=== PATIENT | male | born 1940 | race Caucasian/White ===

== ENCOUNTER → 2020-07-31 13:41 | Outpatient (BNVA) | payer MEDICARE, BC, SELFPAY | PROVIDERS: PCP Family Medicine; Referring Provider Family Medicine; Visit Provider Psychiatry & Neurology Neurology | DX: R26.89 Other abnormalities of gait and mobility (principal); I49.9 Cardiac arrhythmia, unspecified; M48.061 Spinal stenosis, lumbar region without neurogenic claudication; I10 Essential (primary) hypertension | CPT/HCPCS: 99205; G2212 ==

== ENCOUNTER 2020-12-31 02:43 | Outpatient (CLI) | payer MEDICARE, BC, SELFPAY ==
[2020-12-31 14:27] LABS: Source Nasal/Nares
[2020-12-31 19:29] LABS: COVID-19 PCR Negative (Negative)
== END 2020-12-31 02:44 | disposition home or self-care (01) ==
LOC: LBO 02:43
PROVIDERS: PCP Family Medicine; Visit Provider Ophthalmology
DX: Z20.822 Contact with and (suspected) exposure to COVID-19 (principal); Z01.818 Encounter for other preprocedural examination
CPT/HCPCS: 87635

== ENCOUNTER 2021-01-02 10:25 | Day surgery (SDC) | payer MEDICARE, BC, SELFPAY ==
--- NOTE | 2021-01-02 07:47 | W.ANESPRE ---
General Info Date of Service Date Performed: 01/02/21 Height: 5 ft 10 in Weight: 122.47 kg Body Mass Index (BMI): 38.7 Surgical Procedure: Operation Date: 01/02/21 13:40 Proposed Procedures Side Surgeon p Cataract Extraction with IOL Implant Right Tre Montez MD Meds Allergies and Home Medications Allergies Allergy/AdvReac Type Severity Reaction Status Date / Time hydromorphone HCl Allergy Intermediate Other (See Verified 01/02/21 11:09 [From Dilaudid] Comment) morphine Allergy Intermediate Itching Verified 01/02/21 11:09 vancomycin Allergy Intermediate Other (See Verified 01/02/21 11:09 Comment) acetaminophen [From Vicodin] Allergy Unknown Other (See Verified 01/02/21 11:09 Comment) hydrocodone bitartrate Allergy Unknown Verified 01/02/21 11:09 [From Vicodin] gabapentin AdvReac Intermediate Makes pt. Verified 01/02/21 11:09 loopy Home Medication Medication Instructions Recorded amitriptyline 20 mg PO HS tab-cap NS 12/21/16 nitroglycerin [Nitrostat] 0.4 mg SUBLINGUAL DIRECTED NS 12/21/16 Sinemet 25 mg-100 mg tablet 1 tab PO HS tab NS 07/31/20 Zocor 40 mg tablet 40 mg PO .QOD tab NS 07/31/20 acebutolol 400 mg capsule 400 mg PO BID 07/31/20 acetaminophen 650 mg 1,300 mg PO Q12H tab 07/31/20 tablet,extended release acyclovir 200 mg capsule 200 mg PO .5X QD PRN cap 07/31/20 amlodipine 5 mg tablet 5 mg PO HS 07/31/20 cholecalciferol (vitamin D3) 25 25 mcg PO DAILY 07/31/20 mcg (1,000 unit) capsule desipramine 10 mg tablet 10 mg PO QHS 07/31/20 furosemide 40 mg tablet 40 mg PO DAILY 07/31/20 mecobalamin (vitamin B12) 1,000 2,000 mcg PO DAILY tab 07/31/20 mcg chewable tablet omeprazole 40 mg capsule,delayed 40 mg PO BID 07/31/20 release potassium chloride 20 mEq 20 meq PO DAILY 07/31/20 tablet,extended release prazosin 1 mg capsule 1 mg PO TID cap 07/31/20 triamcinolone acetonide 0.1 % 1 applic TOPICAL BID PRN 07/31/20 topical cream walker #1 ea 07/31/20 apixaban [Eliquis] 5 mg PO BID 12/31/20 finasteride 5 mg PO HS 12/31/20 Current Visit Medications: Current Medications Generic Name Dose Route Start Last Admin Trade Name Freq PRN Reason Stop Dose Admin Acetaminophen 1,000 mg 01/02/21 06:00 Acetaminophen 500 Mg Tab PO Q4H PRN PRN Miscellaneous Medication 0 ml 01/02/21 06:00 Prednisolone 1%, Moxifloxacin 0.5%, Nepafenac 0.1% 5ml Btl OD DIRECTED [facility] Miscellaneous Medication 0 ml 01/02/21 06:00 Tropicam./Phenyleph. (1/2.5%) 5 Ml Btl OD DIRECTED [facility] Tetracaine HCl 0 ml 01/02/21 06:00 Tetracaine 0.5% 4 Ml Btl OD DIRECTED [facility] PFSH Active Problems Active Problems: Problem Status Onset Code Cortical cataract of right eye H26.9 Nuclear sclerotic cataract of right eye H25.11 Imbalance R26.89 Lumbar stenosis M48.061 Irregular heart beat I49.9 Medical History Medical History Achalasia Actinic keratosis Adenomatous colon polyp Alcohol abuse, in remission Aortic stenosis Mild per [facility] [place] records from 02/13/20 ASCVD (arteriosclerotic cardiovascular disease) BPH (benign prostatic hyperplasia) CAD (coronary artery disease) Pt. f/u with Dr. Roger @ [facility] [place] [facility] and is aware he is having cataract Depression GERD (gastroesophageal reflux disease) History of excessive sweating History of neck pain HTN (hypertension) Hyperlipidemia Insomnia Knee pain, left Leg edema Lumbar spinal stenosis Obesity Osteoarthritis Pain in left shoulder Restless leg syndrome Seborrheic keratosis Stasis dermatitis Syncope Surgical History Surgical History Colonoscopy - MAC (12/29/16) EGD - MAC (12/29/16) H/O laminectomy History of cervical discectomy S/P carpal tunnel release S/P tendon repair Tobacco Smoking/Tobacco Use Status: Former Tobacco Use Alcohol Alcohol Intake: current Alcohol intake frequency: a few times a month Alcohol type: beer Substance Use Substance use: Never Vital Signs and Lab Results Lab Results Blood Type / Crossmatch: No Data to Display Complete Blood Count: No Data to Display Complete Metabolic Panel: No Data to Display Liver Function Panel: No Data to Display Coagulation Panel: No Data to Display Cardiac Panel: No Data to Display Arterial Blood Gas: No Data to Display Venous Blood Gas: No Data to Display Pancreas Panel: No Data to Display Thyroid Panel: No Data to Display Infectious Disease: Coronavirus (COVID-19)(PCR) Negative (Negative) 12/31/20 09:40 12/31/20 Coronavirus 2019 Source Nasal/Nares 12/31/20 09:40 12/31/20 Blood Cultures: No Data to Display Toxicology Panel: No Data to Display Anesthesia Assessment and Plan Anesthesia History Personal History: No History of Anesthesia Complications Family History: No Family History of Anesthesia Complications Exercise Tolerance Exercise Tolerance: Metabolic Equivalents>4 Pertinent Negatives Pertinent Negatives: No Symptoms of GERD, No Major Pulmonary Symptoms or Complaints and No History of CVA/TIA Cardiac & Pulmonary Exam Cardiac Exam: Normal S1/S2 Heart Sounds Pulmonary Exam: Clear Bilateral Breath Sounds Cardiac and Pulmonary Comment:: Followed up with Dr. Garcia Implantable Cardiac Device Does patient have a Pacemaker or an ICD?: No Airway Exam Known Difficult Airway: No Mallampati Class: 3 Mouth Opening: Narrow (< 3cm) Thyromental Distance: Greater than 3 cm Neck Range of Motion: Limited ROM and History of Cervical Fusion Neck Circumference: Thick Teeth Condition: Normal Dentition and Generalized Poor Dentition ASA Classification ASA Score: ASA 3 Emergency Case?: No NPO Status NPO Status: NPO Clears >2 hours, Solids >8 hours Anesthesia Plan Resuscitation Status: Full Code Anesthesia Technique: MAC Anesthesia Airway Planned: Natural Airway Monitors Used: Standard Monitors Preoperative Comments:: Patient stated did not want to proceed with surgery without some form of sedation. I informed the patient of specific risks in the presence of his daughter. Discussed with Dr. Montez. To proceed with MKO for patient.
[2021-01-02 11:27] VITALS: BP 172/77; PULSE 61; RESP 17; TEMP 36.1; O2SAT 97
[2021-01-02 11:36] VITALS: BMI 38.7
[2021-01-02] MEDS: Tropicam./Phenyleph. (1/2.5%) 5 ML BTL OD ×3 (11:38→11:49)
[2021-01-02] MEDS: Tetracaine 0.5% 4 ML BTL OD (12:06)
[2021-01-02] MEDS: Lidocaine 2% Jelly 6 ML SYR (12:07)
[2021-01-02] MEDS: Lidocaine 1% Pres-Free 5 ML VIAL (12:14)
[2021-01-02] MEDS: Balanced Salt Soln.-PLUS 500 ML BAG (12:16)
[2021-01-02] MEDS: Duovisc Viscoelastic System EACH 1 EACH (12:16)
[2021-01-02] MEDS: Povidone-Iodine Ophth 30 ML BTL (12:19)
[2021-01-02 12:40] VITALS: BP 152/80; PULSE 57; RESP 18; TEMP 36.4; O2SAT 97
--- NOTE | 2021-01-02 12:41 | W.PM.DSUDISC ---
Discharge Plan Disposition Patient Disposition: HOME Condition: Good Discharge Details Attending Provider: Tre Montez Primary Care Provider: Riccardo Duque Meds and New Rx's Prescriptions: No Action prazosin 1 mg capsule 1 mg PO TID RF: 0 (DME) christo Misc See Rx Instructions .ROUTE .MEDSUPPLY Qty: 1 RF: 0 triamcinolone acetonide 0.1 % cream 1 applic topical BID PRNRF: 0 potassium chloride 20 mEq tablet extended release 20 meq PO DAILY RF: 0 furosemide 40 mg tablet 40 mg PO DAILY RF: 0 amlodipine 5 mg tablet 5 mg PO HS RF: 0 desipramine 10 mg tablet 10 mg PO QHS RF: 0 acebutolol 400 mg capsule 400 mg PO BID RF: 0 acyclovir 200 mg capsule 200 mg PO .5X QD PRNRF: 0 acetaminophen 650 mg tablet extended release 1,300 mg PO Q12H RF: 0 B12 Active 1,000 mcg tablet,chewable 2,000 mcg PO DAILY RF: 0 cholecalciferol (vitamin D3) 25 mcg (1,000 unit) capsule 25 mcg PO DAILY RF: 0 omeprazole 40 mg capsule,delayed release(DR/EC) 40 mg PO BID RF: 0 amitriptyline 10 MG tablet 20 mg PO HS RF: 0 nitroglycerin [Nitrostat] 0.4 MG tablet, sublingual 0.4 mg Sublingual DIRECTED RF: 0 carbidopa-levodopa [Sinemet] 25-100 mg tablet 1 tab PO HS RF: 0 simvastatin [Zocor] 40 mg tablet 40 mg PO .QOD RF: 0 Eliquis 5 mg tablet 5 mg PO BID RF: 0 finasteride 5 mg tablet 5 mg PO HS RF: 0 Discharge Instructions Stand Alone Forms: Post-op Topical Cataract, Alia Ganey (DSU) Discharge Orders Discharge Orders: Discharge Order (Routine); Ordered 01/02/21 Ordered By: Tre Montez DS: Diagnosis Discharge Diagnosis (1) Cortical cataract of right eye: Status: Resolved (2) Nuclear sclerotic cataract of right eye: Status: Resolved
--- NOTE | 2021-01-02 12:42 | ROE_ITS ---
Date of service: 01/02/21 Time of Service: 12:42 Operative Note Operative Note DATE OF PROCEDURE: 09/08/20 POST-OP DIAGNOSIS: same PROCEDURE: Cataract extraction using phacoemulsification with intraocular lens implant, right eye SURGEON: Tre Montez ANESTHESIA TYPE: Local By Surgeon and MAC Refer to Anesthesia Record ESTIMATED BLOOD LOSS: 0 PATHOLOGY: none sent COMPLICATIONS: None Patient was transported to: same day Patient's condition: stable Implants: Jordan [employer] Jordan/MAK Tecnis [id number] Indications: Progressive visual loss due to cataract, right eye Procedure Description: CATARACT SURGERY OPERATIVE REPORT PREOPERATIVE DIAGNOSIS: 1. Nuclear/cortical cataract, right eye POSTOPERATIVE DIAGNOSIS: Same OPERATION: 1. Cataract extraction using phacoemulsification with posterior chamber intraocular lens implant, right eye. IOL: IOL Wet Milling Wheel Operator/Model: Jordan & Jordan / MAK Tecnis [id number] IOL Power: + 21.0 diopters IOL Serial Number: [id number] Optic Diameter: 6.0mm Haptic/Overall Diameter: 13.0mm PHACO INFO: [email or web address] Vision System with OZil and Active Fluidics Cumulative Dispersed Energy (CDE): 12.13 seconds SURGEON: Tre Montez MD, VENESSA ANESTHESIA: Monitored Anesthesia Care (MAC), with local sub-tenon's anesthetic infiltration COMPLICATIONS: None SPECIMENS: None INDICATIONS FOR PROCEDURE: The patient is an 80-year-old gentleman with history of diminished visual acuity in his right eye secondary to the development of nuclear/cortical cataract. He is significantly symptomatic that he desired cataract surgery in order to improve and maximize his vision. The option of cataract surgery was offered to the patient and he wished to proceed. PROCEDURE: The correct surgical eye was identified and marked as the right eye and the pupil was dilated in the preoperative area using mydriatics and cycloplegics. The dilated pupil size was 7.0 mm. Oral sedation was administered in the form of an Imprimis MKO Melt (midazolam 3mg/ketamine 25mg/ondansetron 2mg). The patient was brought to the operating room where cardiopulmonary monitoring was instituted and surgical time-out was performed, confirming the correct operative eye and IOL power. Topical anesthesia was administered and ophthalmic povidone-iodine 5% was instilled into the conjunctival fornices. Lidocaine gel was applied to the cornea and the dionne-ocular area was prepped with Betadine 10% solution and draped in the usual sterile fashion for intraocular surgery, including an aperture drape. A Tegaderm transparent film dressing was cut in half and used to cover the lashes and lid margins. Care was taken to sequester the lashes and lid margins under the Tegaderm dressing. A lid speculum was placed between the lids of the operative eye and the Karina-Noemi operating microscope was maneuvered into position. Rosalina scissors were then used to make a conjunctival buttonhole approximately 6mm posterior to the limbus in the inferonasal quadrant. Blunt dissection was carried out to expose bare sclera, and a blunt-tipped sub-tenon?s anesthesia cannula was introduced and passed posteriorly along the globe where non- preserved plain lidocaine was injected into posterior sub-Tenon?s space. A sideport knife was used to make a paracentesis port inferotemporally. Intraocular phenylephrine/lidocaine was injected into the anterior chamber. The anterior chamber was filled with viscoelastic. A 2.4mm keratome knife was used to create a half-thickness groove at the limbus and then to construct a three- plane near-clear corneal tunnel extending 2.0mm into clear cornea superiortemporally. A flap was raised on the anterior capsule and capsulorhexis forceps were used to complete a continuous curvilinear capsulorhexis of 5.0 mm. Balanced salt solution was then used to perform cortical cleaving hydrodissection and nuclear hydrodelineation until the lens could be freely rotated within the capsular bag. The lens nucleus was then disassembled and removed within the capsular bag and iris plane using phacoemulsification. Residual cortical material was removed using the I/A handpiece. The posterior capsule was carefully polished to remove as much residual lens epithelial cells as safely possible. The capsular bag was then inflated and the anterior chamber deepened with viscoelastic. The lens implant described above was inserted into the capsular bag using the MAK [place] Injector. A Kuglen hook was used to dial the IOL into position. Residual viscoelastic was then removed first from posterior to the IOL, then from the anterior chamber using the I/A handpiece. The lens implant was noted to center nicely within the capsular bag. The incisions were stromally hydrated, and the anterior chamber was reformed using BSS. Then 0.5cc of moxifloxacin 1.0mg/ml were injected into the capsular bag and anterior chamber. The incisio ns were checked with a Weck spear and found to be secure. Several drops of ophthalmic povidone-iodine 5% were then applied to the eye followed by two drops of Imprimis combination prednisolone/moxifloxacin/nepafenac solution. The drapes were removed and a clear plastic protective eye shield was placed over the eye. The patient was then returned to Same Day Surgery in stable condition.
[2021-01-02 13:16] VITALS: BP 138/56; PULSE 65; RESP 16; TEMP 36.1; O2SAT 97
--- NOTE | 2021-01-02 14:30 | W.ANESPOSTOP ---
Postoperative Evaluation Date, Time and Location Date Performed: 01/02/21 Time Performed: 14:30 Patient Location: Day Surgery Unit Vital Signs Most Recent Imported Vital Signs: Most Recent Vital Signs Temp Pulse Resp BP Pulse Ox 36.4 C L 57 L 18 152/80 H 97 01/02/21 12:40 01/02/21 12:40 01/02/21 12:40 01/02/21 12:40 01/02/21 12:40 Pain Score Most Recent Pain Score: Most Recent Pain Score Pain Level 0 01/02/21 12:40 Assessment Mental Status: Awake (Alert & Oriented to Patient Baseline) Airway and Respiratory Function: Patent airway with normal (patient baseline) respiratory exam Cardiovascular Function: Hemodynamically Stable Hydration Status: Adequately Hydrated Nausea & Vomiting: No Nausea or Vomiting Pain: Pt. Denies Any Pain Peripheral Nerve Block: Patient did not receive a nerve block
== END 2021-01-02 13:37 | disposition home or self-care (01) ==
PROVIDERS: PCP Family Medicine; Visit Provider Ophthalmology
PROC: (CPT 66984; principal; 2021-01-02 13:30)
DX: H25.11 Age-related nuclear cataract, right eye (principal); I10 Essential (primary) hypertension; I25.10 Atherosclerotic heart disease of native coronary artery without angina pectoris
CPT/HCPCS: 66984; V2632

== ENCOUNTER 2021-01-07 02:40 | Outpatient (CLI) | payer MEDICARE, BC, SELFPAY ==
[2021-01-07 10:55] LABS: Source Nasal/Nares
[2021-01-07 14:13] LABS: COVID-19 PCR Negative (Negative)
== END 2021-01-07 02:41 | disposition home or self-care (01) ==
LOC: LBO 02:40
PROVIDERS: PCP Family Medicine; Visit Provider Ophthalmology
DX: Z20.822 Contact with and (suspected) exposure to COVID-19 (principal); Z01.818 Encounter for other preprocedural examination
CPT/HCPCS: 87635

== ENCOUNTER 2021-01-09 08:10 | Day surgery (SDC) | payer MEDICARE, BC, SELFPAY ==
--- NOTE | 2021-01-08 13:25 | ANES.PREOP_ITS ---
General Info Date of Service Date Performed: 01/09/21 Height: 5 ft 10 in Weight: 125.7 kg Body Mass Index (BMI): 39.7 Surgical Procedure: Operation Date: 01/09/21 10:40 Proposed Procedures Side Surgeon p Cataract Extraction with IOL Implant Left Tre Montez MD Meds Allergies and Home Medications Allergies Allergy/AdvReac Type Severity Reaction Status Date / Time hydromorphone HCl Allergy Intermediate Other (See Verified 01/09/21 08:33 [From Dilaudid] Comment) morphine Allergy Intermediate Itching Verified 01/09/21 08:33 vancomycin Allergy Intermediate Other (See Verified 01/09/21 08:33 Comment) acetaminophen [From Vicodin] Allergy Unknown Other (See Verified 01/09/21 08:33 Comment) hydrocodone bitartrate Allergy Unknown Verified 01/09/21 08:33 [From Vicodin] gabapentin AdvReac Intermediate Makes pt. Verified 01/09/21 08:33 loopy Home Medication Medication Instructions Recorded amitriptyline 20 mg PO HS tab-cap NS 12/21/16 nitroglycerin [Nitrostat] 0.4 mg SUBLINGUAL DIRECTED NS 12/21/16 Sinemet 25 mg-100 mg tablet 1 tab PO HS tab NS 07/31/20 Zocor 40 mg tablet 40 mg PO .QOD tab NS 07/31/20 acebutolol 400 mg capsule 400 mg PO BID 07/31/20 acetaminophen 650 mg 1,300 mg PO Q12H tab 07/31/20 tablet,extended release amlodipine 5 mg tablet 5 mg PO HS 07/31/20 cholecalciferol (vitamin D3) 25 25 mcg PO DAILY 07/31/20 mcg (1,000 unit) capsule desipramine 10 mg tablet 10 mg PO QHS 07/31/20 furosemide 40 mg tablet 40 mg PO DAILY 07/31/20 mecobalamin (vitamin B12) 1,000 2,000 mcg PO DAILY tab 07/31/20 mcg chewable tablet omeprazole 40 mg capsule,delayed 40 mg PO BID 07/31/20 release potassium chloride 20 mEq 20 meq PO DAILY 07/31/20 tablet,extended release prazosin 1 mg capsule 1 mg PO TID cap 07/31/20 triamcinolone acetonide 0.1 % 1 applic TOPICAL BID PRN 07/31/20 topical cream walker #1 ea 07/31/20 apixaban [Eliquis] 5 mg PO BID 12/31/20 finasteride 5 mg PO HS 12/31/20 Current Visit Medications: Current Medications Generic Name Dose Route Start Last Admin Trade Name Freq PRN Reason Stop Dose Admin Acetaminophen 1,000 mg 01/09/21 06:00 Acetaminophen 500 Mg Tab PO Q4H PRN PRN Miscellaneous Medication 0 ml 01/09/21 06:00 Prednisolone 1%, Moxifloxacin 0.5%, Nepafenac 0.1% 5ml Btl OS DIRECTED JOSE LUIS Miscellaneous Medication 0 ml 01/09/21 06:00 Tropicam./Phenyleph. (1/2.5%) 5 Ml Btl OS DIRECTED JOSE LUIS Tetracaine HCl 0 ml 01/09/21 06:00 Tetracaine 0.5% 4 Ml Btl OS DIRECTED JOSE LUIS PFSH Active Problems Active Problems: Problem Status Onset Code Cortical cataract of left eye H26.9 Nuclear sclerotic cataract of left eye H25.12 Cortical cataract of right eye H26.9 Nuclear sclerotic cataract of right eye H25.11 Imbalance R26.89 Lumbar stenosis M48.061 Irregular heart beat I49.9 Medical History Active Problem List Cortical cataract of left eye (Acute) Nuclear sclerotic cataract of left eye (Acute) Imbalance (Acute) Lumbar stenosis (Acute) Irregular heart beat (Acute) Medical History Achalasia Actinic keratosis Adenomatous colon polyp Alcohol abuse, in remission Aortic stenosis Mild per [facility] [place] 02/13/20 ASCVD (arteriosclerotic cardiovascular disease) BPH (benign prostatic hyperplasia) CAD (coronary artery disease) Pt. f/u with Dr. Roger @ [facility] and is aware he is having cataract Depression GERD (gastroesophageal reflux disease) History of excessive sweating History of neck pain HTN (hypertension) Hyperlipidemia Insomnia Knee pain, left Leg edema Lumbar spinal stenosis Obesity Osteoarthritis Pain in left shoulder Restless leg syndrome Seborrheic keratosis Stasis dermatitis Syncope Surgical History Surgical History Colonoscopy - MAC (12/29/16) EGD - MAC (12/29/16) H/O laminectomy History of cervical discectomy S/P carpal tunnel release S/P tendon repair Tobacco Smoking/Tobacco Use Status: Former Tobacco Use Alcohol Alcohol Intake: current Alcohol intake frequency: a few times a month Alcohol type: beer Substance Use Substance use: Never Vital Signs and Lab Results Vital Signs Most Recent Vital Signs in EMR: Temp Pulse Resp BP Pulse Ox 36.2 C L 59 L 16 152/80 H 98 01/09/21 08:41 01/09/21 08:41 01/09/21 08:41 01/09/21 08:41 01/09/21 08:41 Lab Results Blood Type / Crossmatch: No Data to Display Complete Blood Count: No Data to Display Complete Metabolic Panel: No Data to Display Liver Function Panel: No Data to Display Coagulation Panel: No Data to Display Cardiac Panel: No Data to Display Arterial Blood Gas: No Data to Display Venous Blood Gas: No Data to Display Pancreas Panel: No Data to Display Thyroid Panel: No Data to Display Infectious Disease: Coronavirus (COVID-19)(PCR) Negative (Negative) 01/07/21 09:31 01/07/21 Coronavirus 2019 Source Nasal/Nares 01/07/21 09:31 01/07/21 Blood Cultures: No Data to Display Toxicology Panel: No Data to Display Imaging and Studies Imaging and Studies Echocardiogram Summary: 05/2018: mild LVH, normal LV fxn, mild , trivial MR and TR, no change from 2016. unable to view 2019 ECHO report. Anesthesia Assessment and Plan Anesthesia History Personal History: No History of Anesthesia Complications Family History: No Family History of Anesthesia Complications Exercise Tolerance Exercise Tolerance: Metabolic Equivalents>4 Cardiac & Pulmonary Exam Cardiac Exam: Normal S1/S2 Heart Sounds Pulmonary Exam: Clear Bilateral Breath Sounds Cardiac and Pulmonary Comment:: Followed up with Dr. Garcia Implantable Cardiac Device Does patient have a Pacemaker or an ICD?: No Airway Exam Known Difficult Airway: No Mallampati Class: 3 Mouth Opening: Narrow (< 3cm) Thyromental Distance: Greater than 3 cm Neck Range of Motion: Limited ROM and History of Cervical Fusion Neck Circumference: Thick Teeth Condition: Normal Dentition and Generalized Poor Dentition ASA Classification ASA Score: ASA 3 Emergency Case?: No NPO Status NPO Status: NPO Clears >2 hours, Solids >8 hours Anesthesia Plan Resuscitation Status: Full Code Anesthesia Technique: MAC Anesthesia Airway Planned: Natural Airway Monitors Used: Standard Monitors Preoperative Comments:: 80 yo male for cataract removal. Sig PMHx: mild , ASCVD, CAD, GERD, HTN, former smoker. Previous MKO, feels like it didn't do anything. 01/02/21 Patient stated did not want to proceed with surgery without some form of sedation. I informed the patient of specific risks in the presence of his daughter. Discussed with Dr. Montez. To proceed with MKO for patient.
[2021-01-09 08:27] VITALS: BMI 39.7
[2021-01-09 08:41] VITALS: BP 152/80; PULSE 59; RESP 16; TEMP 36.2; O2SAT 98
[2021-01-09] MEDS: Tropicam./Phenyleph. (1/2.5%) 5 ML BTL OS ×3 (08:52→09:06)
[2021-01-09] MEDS: Tetracaine 0.5% 4 ML BTL OS (09:33)
[2021-01-09] MEDS: Lidocaine 2% Jelly 6 ML SYR (09:34)
[2021-01-09] MEDS: Povidone-Iodine Ophth 30 ML BTL (09:34)
[2021-01-09] MEDS: Duovisc Viscoelastic System EACH 1 EACH (09:35)
[2021-01-09] MEDS: Balanced Salt Soln.-PLUS 500 ML BAG (09:36)
--- NOTE | 2021-01-09 09:55 | W.PM.DSUDISC ---
Discharge Plan Disposition Patient Disposition: HOME Condition: Good Discharge Details Attending Provider: Tre Montez Primary Care Provider: Riccardo Duque Meds and New Rx's Prescriptions: No Action prazosin 1 mg capsule 1 mg PO TID RF: 0 (DME) christo Misc See Rx Instructions .ROUTE .MEDSUPPLY Qty: 1 RF: 0 triamcinolone acetonide 0.1 % cream 1 applic topical BID PRNRF: 0 potassium chloride 20 mEq tablet extended release 20 meq PO DAILY RF: 0 furosemide 40 mg tablet 40 mg PO BID RF: 0 amlodipine 5 mg tablet 5 mg PO HS RF: 0 desipramine 10 mg tablet 10 mg PO QHS RF: 0 acebutolol 400 mg capsule 400 mg PO BID RF: 0 acetaminophen 650 mg tablet extended release 1,300 mg PO Q12H RF: 0 B12 Active 1,000 mcg tablet,chewable 2,000 mcg PO DAILY RF: 0 cholecalciferol (vitamin D3) 25 mcg (1,000 unit) capsule 25 mcg PO DAILY RF: 0 omeprazole 40 mg capsule,delayed release(DR/EC) 40 mg PO BID RF: 0 amitriptyline 10 MG tablet 20 mg PO HS RF: 0 nitroglycerin [Nitrostat] 0.4 MG tablet, sublingual 0.4 mg Sublingual DIRECTED RF: 0 carbidopa-levodopa [Sinemet] 25-100 mg tablet 1 tab PO HS RF: 0 simvastatin [Zocor] 40 mg tablet 40 mg PO .QOD RF: 0 Eliquis 5 mg tablet 5 mg PO BID RF: 0 finasteride 5 mg tablet 5 mg PO HS RF: 0 Discharge Instructions Stand Alone Forms: Post-op Topical Cataract, Alia Morocho (DSU) Discharge Orders Discharge Orders: Discharge Order (Routine); Ordered 01/09/21 Ordered By: Tre Montez DS: Diagnosis Discharge Diagnosis (1) Cortical cataract of left eye: Status: Resolved (2) Nuclear sclerotic cataract of left eye: Status: Resolved
--- NOTE | 2021-01-09 09:56 | ROE_ITS ---
Date of service: 01/09/21 Time of Service: 09:56 Operative Note Operative Note DATE OF PROCEDURE: 01/09/21 PRE-OP DIAGNOSIS: Nuclear/cortical cataract, left eye POST-OP DIAGNOSIS: same PROCEDURE: Cataract extraction using phacoemulsification with intraocular lens implant, left eye SURGEON: Tre Montez ANESTHESIA TYPE: Local By Surgeon and MAC Refer to Anesthesia Record PATHOLOGY: none sent COMPLICATIONS: None Patient was transported to: same day Patient's condition: stable Implants: Jordan [employer] Jordan / [employer] Tecnis [id number] Indications: Progressive decreased vision due to cataract, left eye Procedure Description: CATARACT SURGERY OPERATIVE REPORT PREOPERATIVE DIAGNOSIS: 1. Nuclear/cortical cataract, left eye POSTOPERATIVE DIAGNOSIS: Same OPERATION: 1. Cataract extraction using phacoemulsification with posterior chamber intraocular lens implant, left eye. IOL: IOL Janitorial Manager/Model: Jordan & Jordan / MAK Tecnis [id number] IOL Power: + 20.50 diopters IOL Serial Number: [id number] Optic Diameter: 6.0 mm Haptic/Overall Diameter: 13.0 mm PHACO INFO: Kvng[employer] The[employer]on Vision System with OZil and Active Fluidics Cumulative Dispersed Energy (CDE): 9.45 seconds SURGEON: Tre Montez MD, VENESSA ANESTHESIA: Monitored A [facility] ([facility]), with local sub-tenon's anesthetic infiltration COMPLICATIONS: None SPECIMENS: None INDICATIONS FOR PROCEDURE: The patient is an 80-year-old gentleman with history of diminished visual acuity in both eyes secondary to the development of bilateral cataract. He has already undergone cataract surgery in the right eye and is doing well postoperatively. He now presents for cataract surgery in the left eye. PROCEDURE: The correct surgical eye was identified and marked as the left eye and the pupil was dilated in the preoperative area using mydriatics and cycloplegics. The dilated pupil size was 7.5 mm. Oral sedation was administered in the form of an Imprimis MKO Melt (midazolam 3mg/ketamine 25mg/ondansetron 2mg). The patient was brought to the operating room where cardiopulmonary monitoring was instituted and surgical time-out was performed, confirming the correct operative eye and IOL power. Topical anesthesia was administered and ophthalmic povidone-iodine 5% was instilled into the conjunctival fornices. Lidocaine gel was applied to the cornea and the dionne-ocular area was prepped with Betadine 10% solution and draped in the usual sterile fashion for intraocular surgery, including an aperture drape. A Tegaderm transparent film dressing was cut in half and used to cover the lashes and lid margins. Care was taken to sequester the lashes and lid margins under the Tegaderm dressing. A lid speculum was placed between the lids of the operative eye and the Karina-Noemi operating microscope was maneuvered into position. Rosalina scissors were then used to make a conjunctival buttonhole approximately 6mm posterior to the limbus in the inferonasal quadrant. Blunt dissection was carried out to expose bare sclera, and a blunt-tipped sub-tenon?s anesthesia cannula was introduced and passed posteriorly along the globe where non- preserved plain lidocaine was injected into posterior sub-Tenon?s space. A s basico.comport knife was used to make a paracentesis port superiorly/superiortemporally. Intraocular phenylephrine/lidocaine was injected int the anterior chamber.. The anterior chamber was filled with viscoelastic. A 2.4mm keratome knife was used to create a half-thickness groove at the limbus and then to construct a three-plane near-clear corneal tunnel extending 2.0mm into clear cornea at the 3:00 position. A flap was raised on the anterior capsule and capsulorhexis forceps were used to complete a continuous curvilinear capsulorhexis of 5.5 mm. Balanced salt solution was then used to perform cortical cleaving hydrodissection and nuclear hydrodelineation until the lens could be freely rotated within the capsular bag. The lens nucleus was then disassembled and removed within the capsular bag and iris plane using phacoemulsification. Residual cortical material was removed using the 45-degree angled silicone I/A tip with 0.3mm port. The posterior capsule was carefully polished to remove as much residual lens epithelial cells as safely possible. The capsular bag was then inflated and the anterior chamber deepened with viscoelastic. The lens implant described above was inserted into the capsular bag using the MAK [place] Injector. A Kuglen hook was used to dial the IOL into position. Residual viscoelastic was then removed first from posterior to the IOL, then from the anterior chamber using the I/A handpiece. The lens implant was noted to center nicely within the capsular bag. The incisions were stromally hydrated, and the anterior chamber was reformed using BSS. Then 0.5cc of moxifloxacin 1.0mg/ml were injected into the capsular bag and anterior chamber. The incisions were checked with a Weck spear and found to be secure. Several drops of ophthalmic povidone-iodine 5% were then applied to the eye followed by two drops of Imprimis combination prednisolone/moxifloxacin/nepafenac solution. The drapes were removed and a clear plastic protective eye shield was placed over the eye. The patient was then returned to Same Day Surgery in stable condition.
[2021-01-09 10:02] VITALS: BP 131/66; PULSE 55; RESP 16; TEMP 36.1; O2SAT 95
--- NOTE | 2021-01-09 10:07 | W.ANESPOSTOP ---
Postoperative Evaluation Date, Time and Location Date Performed: 01/09/21 Time Performed: 10:00 Patient Location: Day Surgery Unit Vital Signs Most Recent Imported Vital Signs: Most Recent Vital Signs Temp Pulse Resp BP Pulse Ox 36.1 C L 55 L 16 131/66 95 01/09/21 10:02 01/09/21 10:02 01/09/21 10:02 01/09/21 10:02 01/09/21 10:02 Pain Score Most Recent Pain Score: Most Recent Pain Score Pain Level 0 01/09/21 10:02 Assessment Mental Status: Awake (Alert & Oriented to Patient Baseline) Airway and Respiratory Function: Patent airway with normal (patient baseline) respiratory exam Cardiovascular Function: Hemodynamically Stable Hydration Status: Adequately Hydrated Nausea & Vomiting: No Nausea or Vomiting Pain: Pt. Denies Any Pain Peripheral Nerve Block: Patient did not receive a nerve block
[2021-01-09 10:26] VITALS: BP 131/69; PULSE 55; RESP 16; TEMP 36.1; O2SAT 94
== END 2021-01-09 10:40 | disposition home or self-care (01) ==
PROVIDERS: PCP Family Medicine; Visit Provider Ophthalmology
PROC: (CPT 66984; principal; 2021-01-09 10:30)
DX: H25.12 Age-related nuclear cataract, left eye (principal); K21.9 Gastro-esophageal reflux disease without esophagitis; I10 Essential (primary) hypertension; I25.10 Atherosclerotic heart disease of native coronary artery without angina pectoris
CPT/HCPCS: 66984; V2632

== ENCOUNTER → 2022-03-30 10:36 | Outpatient (BNVA) | payer MEDICARE, BC, SELFPAY | PROVIDERS: PCP Family Medicine; Referring Provider Family Medicine; Visit Provider Psychiatry & Neurology Neurology | DX: R26.89 Other abnormalities of gait and mobility (principal); M48.061 Spinal stenosis, lumbar region without neurogenic claudication; M48.02 Spinal stenosis, cervical region | CPT/HCPCS: 99214 ==

== ENCOUNTER → 2023-02-16 15:48 | Outpatient (BNVA) | payer MEDICARE, BC, SELFPAY | PROVIDERS: PCP Family Medicine; Referring Provider Family Medicine; Visit Provider Podiatrist | DX: G60.9 Hereditary and idiopathic neuropathy, unspecified (principal); L60.3 Nail dystrophy; B07.0 Plantar wart; R09.89 Other specified symptoms and signs involving the circulatory and respiratory systems; R60.0 Localized edema; L65.9 Nonscarring hair loss, unspecified; R20.8 Other disturbances of skin sensation; M21.40 Flat foot [pes planus] (acquired), unspecified foot; M79.674 Pain in right toe(s); M79.675 Pain in left toe(s) | CPT/HCPCS: 11721; 17110 ==

== ENCOUNTER → 2023-06-07 09:12 | Outpatient (BNVA) | payer MEDICARE, BC, SELFPAY | PROVIDERS: PCP Family Medicine; Referring Provider Family Medicine; Visit Provider Psychiatry & Neurology Neurology | DX: M48.061 Spinal stenosis, lumbar region without neurogenic claudication (principal); R29.898 Other symptoms and signs involving the musculoskeletal system; R29.6 Repeated falls; R26.89 Other abnormalities of gait and mobility | CPT/HCPCS: 99215 ==

== ENCOUNTER 2023-09-25 13:25 | Observation (INO) | payer MEDICARE, BC, SELFPAY ==
[2023-09-25] VITALS (40 sets, daily range): BP systolic 108–173; BP diastolic 7–93; PULSE 51–80; RESP 12–20; TEMP 36.6–37; O2SAT 86–98
--- NOTE | 2023-09-25 13:30 | DI.RAD_ITS ---
Exam(s) XR KNEE RT 2V AP,LAT XR FEMUR RT XR HIP RT COMPLETE AP PELVIS EXAM: XR FEMUR RT CLINICAL HISTORY: right leg pain. TECHNIQUE: 2D digital imaging was performed. AP and lateral views. COMPARISON: CR,XR XR KNEE RT 2V AP,LAT from 09/25/2023 CR,XR XR HIP RT COMPLETE AP PELVIS from 09/25/2023 FINDINGS: BONES: No acute fractures are seen in the pelvis, femur or knee. An intramedullary aundrea and compressi on screw noted in the femur. There is a subacute fracture of the mid to distal femoral shaft with ca llus formation. There is a total knee prosthesis. There is significant amount of abnormal lucency seen medial to the femoral component of the knee prosthesis concerning for loosening. No significant lucency seen arou nd the tibial component. There is prominent spurring at both the upper and lower aspects of the estrada lla. JOINTS: There are mild degenerative changes at the right hip. There is a small knee joint effusion. SOFT TISSUE: Vascular calcifications. IMPRESSION: Healing fracture of the mid to distal femoral shaft with hardware in place. No acute fracture. Abnormal lucency at the medial aspect of the femoral component of the prosthesis suspicious for loose frandy. DATA REPOSITORY: RADIATION DOSE DELIVERED:
--- NOTE | 2023-09-25 13:37 | W.ED.GENAD ---
Discharge Plan Discharge Details Chief Complaint: Orthopedic Primary Care Provider: Riccardo Duque ED Provider: Tre Kan Home Meds and New Rx's Prescriptions: No Action prazosin 1 mg capsule 1 mg PO TID (RICK) christo [facility] [place] See Rx Instructions .ROUTE .MEDSUPPLY Qty: 1 Rx Instructions: As directed triamcinolone acetonide 0.1 % cream 1 applic topical BID PRN acebutolol 400 mg capsule 400 mg PO BID acetaminophen 650 mg tablet extended release 1,300 mg PO Q12H mecobalamin (vitamin B12) [B12 Active] 1,000 mcg tablet,chewable 2,000 mcg PO DAILY cholecalciferol (vitamin D3) 25 mcg (1,000 unit) capsule 25 mcg PO DAILY omeprazole 40 mg capsule,delayed release(DR/EC) 40 mg PO BID furosemide 40 mg tablet 40 mg PO BID spironolactone 25 mg tablet 25 mg PO DAILY amlodipine 10 mg tablet 10 mg PO DAILY simvastatin 40 mg tablet 40 mg PO DAILY acyclovir 200 mg capsule 200 mg PO 5X/DAY PRN silodosin 8 mg capsule 8 mg PO DAILY Rx Instructions: must administer with a meal/food nitroglycerin [Nitrostat] 0.4 MG tablet, sublingual 0.4 mg Sublingual DIRECTED carbidopa-levodopa [Sinemet] 25-100 mg tablet 2 tab PO HS cephalexin 500 mg capsule 500 mg PO QID Eliquis 5 mg tablet 5 mg PO BID finasteride 5 mg tablet 5 mg PO HS folic acid 1 mg tablet 1 mg PO DAILY losartan 50 mg tablet 50 mg PO DAILY cyanocobalamin (vitamin B-12) [Vitamin B-12] 1,000 mcg tablet 1,000 mcg PO DAILY propranolol 10 mg tablet 10 mg PO BID melatonin 3 mg tablet 3 mg PO HS hydroxyzine HCl 50 mg tablet 50 mg PO QHS tramadol 25 mg tablet 25 mg PO Q6H PRN HPI <Mitul Johnson MD - Last Filed: 09/25/23 16:45> General Date/Time Provider Initiated Documentation: 09/25/23 13:27. HPI Narrative: 83-year-old gentleman with past medical history of right lower extremity femur fracture and knee replacement presents for evaluation of right leg pain. He reports acute onset this afternoon while he was doing his home physical therapy exercises and doing some range of motion of his right lower extremity. He denies any falls. He reports that while doing this exercise, he had acute onset of pain, localizing the pain behind his right knee. States that the pain is severe and radiates up to his lower back. It is not associated with any numbness or tingling. He says that he heard and felt a pop. He states that he has not really been able to walk because of the pain since this happened. Otherwise he has been doing well with physical therapy and using a walker to help ambulate. Related Data Home Medications ?Medication ?Instructions ?Recorded ?Confirmed Nitrostat 0.4 mg sublingual tablet 0.4 mg sublingual DIRECTED 12/21/16 09/25/23 (nitroglycerin) acebutolol 400 mg capsule 400 mg PO BID 07/31/20 09/25/23 acetaminophen 650 mg 1,300 mg PO Q12H 07/31/20 09/25/23 tablet,extended release cholecalciferol (vitamin D3) 25 25 mcg PO DAILY 07/31/20 09/25/23 mcg (1,000 unit) capsule mecobalamin (vitamin B12) 1,000 2,000 mcg PO DAILY 07/31/20 09/25/23 mcg chewable tablet (B12 Active) omeprazole 40 mg capsule,delayed 40 mg PO BID 07/31/20 09/25/23 release prazosin 1 mg capsule 1 mg PO TID 07/31/20 09/25/23 triamcinolone acetonide 0.1 % 1 applic topical BID PRN 07/31/20 09/25/23 topical cream walker #1 ea 07/31/20 09/25/23 apixaban 5 mg tablet (Eliquis) 5 mg PO BID 12/31/20 09/25/23 finasteride 5 mg tablet 5 mg PO HS 12/31/20 09/25/23 spironolactone 25 mg tablet 25 mg PO DAILY 11/11/21 09/25/23 amlodipine 10 mg tablet 10 mg PO DAILY 02/08/22 09/25/23 Sinemet 25 mg-100 mg tablet 2 tab PO HS 02/09/22 09/25/23 (carbidopa-levodopa) furosemide 40 mg tablet 40 mg PO BID 03/31/22 09/25/23 acyclovir 200 mg capsule 200 mg PO 5X/DAY PRN 08/17/22 09/25/23 simvastatin 40 mg tablet 40 mg PO DAILY 08/17/22 09/25/23 cephalexin 500 mg capsule 500 mg PO QID 05/05/23 09/25/23 silodosin 8 mg capsule 8 mg PO DAILY 06/07/23 09/25/23 cyanocobalamin (vitamin B-12) 1,000 mcg PO DAILY 09/25/23 09/25/23 1,000 mcg tablet (Vitamin B-12) folic acid 1 mg tablet 1 mg PO DAILY 09/25/23 09/25/23 hydroxyzine HCl 50 mg tablet 50 mg PO QHS 09/25/23 09/25/23 losartan 50 mg tablet 50 mg PO DAILY 09/25/23 09/25/23 melatonin 3 mg tablet 3 mg PO HS 09/25/23 09/25/23 propranolol 10 mg tablet 10 mg PO BID 09/25/23 09/25/23 tramadol 25 mg tablet 25 mg PO Q6H PRN 09/25/23 09/25/23 Allergies Allergy/AdvReac Type Severity Reaction Status Date / Time hydromorphone HCl (From Allergy Intermediate Other (See Verified 09/25/23 13:35 Dilaudid) Comment) morphine Allergy Intermediate Itching Verified 09/25/23 13:35 vancomycin Allergy Intermediate Other (See Verified 09/25/23 13:35 Comment) acetaminophen (From Vicodin) Allergy Unknown Other (See Verified 09/25/23 13:35 Comment) hydrocodone bitartrate (From Allergy Unknown Other (See Verified 09/25/23 13:35 Vicodin) Comment) tamsulosin Allergy Unknown Other (See Verified 09/25/23 13:35 Comment) gabapentin AdvReac Intermediate Makes pt. Verified 09/25/23 13:35 loopy General Stated Complaint: Orthopedic NAA: 3 Exam <Mitul Johnson MD - Last Filed: 09/25/23 16:45> Narrative Exam Narrative: Review of Systems: All systems reviewed & are unremarkable except as noted in HPI and below Well-developed, no acute distress NCAT PERRL, normal conjunctiva RRR Unlabored respiratory effort Nondistended abdomen Well-healed surgical incisions noted, no tenderness of the hip or instability in the pelvis, able to do a straight leg raise of the right leg, able to do a heel drag and bend his knee, no significant effusion noted or palpable swelling of the posterior knee No rashes or lesions. no focal neurologic deficits Appropriate mood and affect Course <Mitul Johnson MD - Last Filed: 09/25/23 16:45> Vital Signs Vital signs: Vital Signs Temperature 36.9 C 09/25/23 13:27 Pulse 80 09/25/23 13:27 Respiratory Rate 20 09/25/23 13:27 Blood Pressure 108/64 09/25/23 13:27 Pulse Oximetry 98 09/25/23 13:27 Temperature 36.9 C 09/25/23 13:27 Pulse 80 09/25/23 13:27 Respiratory Rate 20 09/25/23 13:27 Blood Pressure 108/64 09/25/23 13:27 Blood Pressure Position Supine 09/25/23 13:27 Pulse Oximetry 98 09/25/23 13:27 Oxygen Delivery Method Room Air 09/25/23 13:27 Oxygen Flow Rate 0 09/25/23 13:27 Medical Decision Making <Mitul Johnson MD - Last Filed: 09/25/23 16:45> Emergent evaluation of acute atraumatic right leg pain. Patient is postoperative intramedullary nail of the right femur as well as a right knee replacement. Patient has no obvious deformity and is neurovascularly intact. Initial differential includes prosthesis failure, ligamentous injury, muscle strain. No suspicion for infectious etiology given the acute onset of the pain. X-ray imaging was obtained, V rad is concern for possible lucency and effusion in the knee. I have compared the imaging to prior images obtained at [facility]. Our images have been sent to [facility] and they were reviewed by orthopedics there. They do not see significant differences in today's images versus prior. But given his symptoms, they are recommending a CT scan. At this time CT imaging is pending as well as an ambulatory trial. The patient has thus far not been able to walk, even with pain control a walker and assistance. If the patient is unable to walk it would be unsafe to send him home at this time. The final disposition has been turned over to oncoming provider. Quality:[facility] Health Related Social Needs: No Data to Display <Tre Kan MD - Last Filed: 09/25/23 23:18> Emergent evaluation of acute atraumatic right leg pain. Patient is postoperative intramedullary nail of the right femur as well as a right knee replacement. Patient has no obvious deformity and is neurovascularly intact. Initial differential includes prosthesis failure, ligamentous injury, muscle strain. No suspicion for infectious etiology given the acute onset of the pain. X-ray imaging was obtained, V rad is concern for possible lucency and effusion in the knee. I have compared the imaging to prior images obtained at [facility]. Our images have been sent to [facility] and they were reviewed by orthopedics there. They do not see significant differences in today's images versus prior. But given his symptoms, they are recommending a CT scan. At this time CT imaging is pending as well as an ambulatory trial. The patient has thus far not been able to walk, even with pain control a walker and assistance. If the patient is unable to walk it would be unsafe to send him home at this time. The final disposition has been turned over to oncoming provider. 23: 17 images from x-ray and CT reviewed by orthopedic team at [facility] who does not see any acute fracture or change in hardware status. Patient feeling somewhat better after medication for sciatica. However still is unable to ambulate without assistance. Patient will be kept here in emergency department and evaluated by PT in the morning if he is still unable to ambulate will need inpatient admission for rehabilitation placement [facility] <Mitul Johnson MD - Last Filed: 09/25/23 16:45> All Active Problems Cervical myelopathy (Acute) Right leg weakness (Acute) DNR (do not resuscitate) (Acute) Plantar wart, right foot (Acute) Neuropathy, idiopathic (Acute) Localized edema (Acute) bi-lateral ankle edema Venous insufficiency of both lower extremities (Acute) with chronic stasis changes Nail dystrophy (Acute) Imbalance (Acute) Lumbar stenosis (Acute) Irregular heart beat (Acute) Medical History Hyponatremia Recurrent falls History of GI diverticular bleed Afib Abdominal pain, suprapubic Dizziness 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 f/u with Dr. Roger @ [facility] and is aware he is having cataract Obesity History of neck pain Stasis dermatitis Seborrheic keratosis Adenomatous colon polyp Pain in left shoulder Knee pain, left Actinic keratosis Insomnia BPH (benign prostatic hyperplasia) History of excessive sweating HTN (hypertension) Achalasia GERD (gastroesophageal reflux disease) Depression ASCVD (arteriosclerotic cardiovascular disease) angioplasty 1993 Surgical History History of total right knee replacement (TKR) S/P PTCA (percutaneous transluminal coronary angioplasty) History of cervical discectomy H/O laminectomy S/P carpal tunnel release S/P tendon repair EGD - [facility] (12/29/16) Colonoscopy - [facility] (12/29/16) Family History Father Prostate cancer Hypertension Stroke Mother Hypertension Maternal Grandmother Stomach cancer Social History Smoking/Tobacco Use Status: Former Tobacco Use Quit Date: 02/21/85 Smoking risk assessment performed?: Yes Alcohol Intake: current Alcohol Intake frequency: a few times a month Alcohol type: beer Details: <1 DRINK PER DAY OF 06-05-20; Drug use: Never Substance use type: does not use Household members: none Number of Children: 2 current occupation: Retired What is your relationship status?: Panel score (0-1 are the most socially isolated patients): 0 Do you feel safe at home: Yes Additional Social history: lives alone Sign Out <Mitul Johnson MD - Last Filed: 09/25/23 16:45> Sign Out Data: Sign Out Comment: 83y M with atraumatic right knee pain has significant surgical history, april 2023 at [facility] discussed with ortho at [facility], they have recommended CT imaging and want to talk again after that. Has received some additional pain medicines, but if he can't walk (with walker) would admit for pain control pt/ot Last updated by Mitul Johnson MD at 09/25/23 16:39
[2023-09-25] MEDS: Acetaminophen 500 MG TAB 1000 MG PO (13:50)
--- NOTE | 2023-09-25 15:00 | DI.VRAD_ITS ---
PROCEDURE INFORMATION: Exam: XR Right Knee Exam date and time: 09/25/2023 2:01 PM Age: 83 years old Clinical indication: Injury or trauma; Other: Leg gave ou t pain; Fracture, traumatic; Closed fracture; Patella or knee; Right; Prior surgery; Surgery date: 1-6 months; Surgery type: Femur TECHNIQUE: Imaging protocol: Radiologic exam of the right knee. Views: 3 views. COMPARISON: CR XR FEMUR RT 09/25/2023 1:59 PM FINDINGS: Bones/joints: The distal portion of an intramedullary aundrea with 3 fixation screws is identified. Status post total knee replacement. There is significant lucency with cortication seen between the medial femoral condyle bony ridge and prosthetic component. There appears to be loose body formation in the suprapatellar bursa with probable associated joint effusion. There is either calcification in the infrapatellar portion of the quadriceps tendon or heterotopic bone formation. There is a subacute fracture with callus formation seen in the distal femur. No acute fracture noted. Soft tissues: Normal. Vasculature: Atherosclerotic change present in the vasculature. IMPRESSION: Postsurgical changes as noted. Small joint effusion associated with the apparent loose body formation. Lucency seen at the medial condylar level between the residual [place] condyle and prosthesis. Dictated and Authenticated by: Eusebia Ayala MD. Ordering:KAI Sullivan MD
--- NOTE | 2023-09-25 15:04 | DI.VRAD_ITS ---
PROCEDURE INFORMATION: Exam: XR Right Hip Exam date and time: 09/25/2023 1:57 PM Age: 83 years old Clinical indication: Injury or trauma; Other: Leg gave ou t pain; Blunt trauma (contusions or hematomas); Right; Hip; Prior surgery; Surgery date: 1-6 months; Surgery type: Femur TECHNIQUE: Imaging protocol: Radiologic exam of the right hip. Views: 2 or 3 views hip with pelvis when performed. COMPARISON: MRI LUMBAR W/WO 08/12/2020 11:22 AM FINDINGS: Bones/joints: A right dynamic hip screw is in place. Bone mineralization appears decreased. No acute fracture seen. Soft tissues: Unremarkable. IMPRESSION: No evidence for acute fracture. Dictated and Authenticated by: Eusebia Ayala MD. Ordering:KAI Sullivan MD
--- NOTE | 2023-09-25 15:08 | DI.VRAD_ITS ---
PROCEDURE INFORMATION: Exam: XR Right Femur Exam date and time: 09/25/2023 1:59 PM Age: 83 years old Clinical indication: Injury or trauma; Other: Leg gave out pain; Fracture, traumatic; Closed fracture; Right; Prior surgery; Surgery date: 1-6 months; Surgery type: Femur rodding TECHNIQUE: Imaging protocol: Radiologic exam of the right femur. Views: 2 views. COMPARISON: CR XR HIP RT COMPLETE AP PELVIS 09/25/2023 1:57 PM FINDINGS: Bones/joints: A right intramedullary aundrea is present. There is a mid to distal femur fracture with butterfly fragment. Alignment is nearly anatomic. There is callus formation present with concern for early heterotopic bone formation. Knee prosthesis noted. See separate knee report. No acute fracture. Soft tissues: Unremarkable. Vasculature: Vascular calcifications present. IMPRESSION: Healing mid to distal femoral comminuted fracture with intramedullary aundrea placement. No acute fracture seen. Dictated and Authenticated by: Eusebia Ayala MD. Ordering:VeronikaTIMOTHY Sullivan MD
[2023-09-25] MEDS: Lidocaine 5% Patch 1 PATCH TP (15:30)
[2023-09-25] MEDS: traMADol 50 MG TAB 25 MG PO (15:31)
[2023-09-25] MEDS: Methocarbamol 500 MG TAB 1000 MG PO (15:31)
--- NOTE | 2023-09-25 16:00 | DI.CT_ITS ---
Exam(s) CT LOWER EXTREMITY RT WO EXAM: CT LOWER EXTREMITY RT WO CLINICAL HISTORY: hip to knee. TECHNIQUE: Imaging Protocol: Axial computed tomography images with coronal and sagittal reformatted images were created and reviewed. CONTRAST MATERIAL: Noncontrast COMPARISON: CR,XR XR FEMUR RT from 09/25/2023 CR,XR XR KNEE RT 2V AP,LAT from 09/25/2023 FINDINGS: Bones: Intramedullary aundrea again and dynamic hip screw again noted. Mid to distal femoral shaft fract ure which shows some callus formation, consistent with subacute fracture. Alignment satisfactory. L ucency seen on plain films at the medial aspect of the femoral component of the prosthesis is not wel l visualized on this study. Joints: Total knee prosthesis creating artifact at this level. Small joint effusion is visible. Mi ld degenerative changes at the right hip. Soft Tissues: Chronic appearing calcifications in the distal quadriceps tendon and proximal patellar tendon. Hamstring muscular atrophy. No hematoma. Intra-abdominal contents: Unremarkable. IMPRESSION: Subacute fracture of the mid to distal femoral shaft with hardware in place. No acute fractures iden tified. No significant soft tissue hematoma. Knee prosthesis creates artifact as not well evaluated. The lucency seen medial to the femoral compo nent is not well seen on the CT. RADIATION DOSE DELIVERED: Total DLP DATA REPOSITORY: All CT scans at this facility are submitted to the National Radiology Data Registry (NRDR) Dose Index Registry (DIR) with the [employer] (ACR). RADIATION OPTIMIZATION: All CT scans at this facility use at least one of these dose optimization te chniques: automated exposure control; mA and/or kV adjustment per patient size (includes targeted exa ms where dose is matched to clinical indication); or iterative reconstruction.
--- NOTE | 2023-09-25 17:40 | DI.VRAD_ITS ---
PROCEDURE INFORMATION: Exam: CT Right Lower Extremity Without Contrast; Thigh Exam date and time: 09/25/2023 4:34 PM Age: 83 years old Clinical indication: Pain; Thigh; Right; Prior surgery; Surgery date: 1-6 months; Surgery type: Femur/rodding TECHNIQUE: Imaging protocol: CT of the right lower extremity without contrast was performed. Exam focused on the thigh. COMPARISON: CR XR FEMUR RT 09/25/2023 1:59 PM FINDINGS: Bones/joints: There is a right dynamic hip screw and right femoral intramedullary aundrea. Three-part knee prosthesis in place with beam hardening artifact. There is a mid to distal femoral shaft comminuted fracture, ununited. There is callus formation suggesting subacute injury. There appear to be dystrophic calcifications in the superior and inferior quadriceps tendon, possible heterotopic bone formation. Minimal joint effusion. There is some heterotopic bone formation adjacent to the right hip laterally and posteriorly. No new fracture is identified. Soft tissues: See Bones/joints finding. IMPRESSION: Subacute ununited fracture mid to distal femoral shaft. Hardware in place as noted. No definite acute abnormality seen to account for symptoms. Dystrophic calcifications in the superior and inferior quadriceps tendon noted. Dictated and Authenticated by: Eusebia Ayala MD. Ordering:[facility] Elizabeth Sullivan MD
[2023-09-25] MEDS: Dexamethasone 10 MG/ML VIAL PO (18:47)
[2023-09-25] MEDS: Ketorolac 15 MG/ML VIAL IM (18:48)
--- NOTE | 2023-09-25 22:18 | NUR.NOTE ---
Nursing Note: Assumed care of pt. Report from Octavia Leonard. Introduced self to pt. Updated pt on plan of care. Had typing secretary call for a hospital bed. Pt finished his sandwich and soda.
[2023-09-26] VITALS (10 sets, daily range): BP systolic 101–162; BP diastolic 52–79; PULSE 45–58; RESP 12–20; TEMP 35.7–36.9; O2SAT 94–98
[2023-09-26] MEDS: Apixaban 5 MG TAB (00:19)
[2023-09-26] MEDS: Carbidopa 25/Levodopa 100 TAB (00:20)
[2023-09-26] MEDS: Finasteride 5 MG TAB (00:21)
[2023-09-26] MEDS: Melatonin 3 MG TAB PO ×2 (00:22→20:27)
[2023-09-26] MEDS: hydrOXYzine HCL 25 MG TAB (00:22)
[2023-09-26] MEDS: Propranolol 10 MG TAB (00:22)
--- NOTE | 2023-09-26 00:24 | NUR.NOTE ---
Nursing Note: 2 person assist to get pt up with walker. Moved stretcher out from behind pt and moved hospital bed in behind pt to sit on. Pt having a lot of R sided groin, knee, thigh and buttocks pain during the transfer. Pt needed 2 person assist to get into the bed. Call light attached to his gown and instructions on use of bed controlls given to pt. Covered with warm blankets and turned down lights.
--- NOTE | 2023-09-26 01:35 | NUR.NOTE ---
Nursing Note: Pt appears to be sleeping. Equal rise and fall of chest noted.
--- NOTE | 2023-09-26 06:23 | NUR.NOTE ---
Nursing Note:Pt up to commode 2 person assist. Ordered pt breakfast.
--- NOTE | 2023-09-26 07:11 | W.EDPROG ---
Date of service: 09/26/23 Time of Service: 07:11 Medical Decision Making Care reassumed from off going providers. Patient presented yesterday to the emergency department with right lower extremity pain. He has complex surgical repair of that leg. Imaging was concerning and evaluated by orthopedic surgery who did clear the patient. However secondary to pain he was having difficulty walking. Per signout this was not reason to admit the patient to the hospital and he has been waiting overnight in the emergency department for evaluation by physical therapy this morning to determine a safe disposition plan. 929 Patient was evaluated by physical therapy in the emergency department. They concur that the patient does not have the ability to walk independently at this time. They are recommending hospitalization for further physical therapy work. I have discussed with the hospitalist and the patient will be admitted to their service for further management and disposition. Quality:[facility] Health Related Social Needs: No Data to Display Sign Out Sign Out Data: Sign Out Comment: 83y M with atraumatic right knee pain has significant surgical history[place] [facility] [place] [facility] [place] they have recommended CT imaging and want to talk again after that. Has received some additional pain medicines, but if he can't walk (with walker) would admit for pain control pt/ot Last updated by Mitul Johnson MD at 09/25/23 16:39 Sign Out Comment: right leg pain, weeks post fem aundrea and knee replacement, cannot walk, cleared by ortho [facility] negative CT; pending PT eval in morning, if fails admit in AM for rehab placement Last updated by Tre Kan MD at 09/25/23 23:31 Sign Out Comment: Patient to be evaluated by PT this morning. If cleared can be discharged back to assisted living. If fails may need admission for rehab placement. Last updated by Taiwo Sharma MD at 09/26/23 06:53 Discharge Plan Disposition Patient Disposition: Admit to [facility] Condition: Stable Discharge Details Chief Complaint: Orthopedic Clinical Impression: Inability to walk, Acute pain of right lower extremity Primary Care Provider: Riccardo Duque ED Provider: Mitul Johnson Home Meds and New Rx's Prescriptions: No Action prazosin 1 mg capsule 1 mg PO TID (DME) walker Misc See Rx Instructions .ROUTE .MEDSUPPLY Qty: 1 Rx Instructions: As directed triamcinolone acetonide 0.1 % cream 1 applic topical BID PRN acebutolol 400 mg capsule 400 mg PO BID acetaminophen 650 mg tablet extended release 1,300 mg PO Q12H mecobalamin (vitamin B12) [B12 Active] 1,000 mcg tablet,chewable 2,000 mcg PO DAILY cholecalciferol (vitamin D3) 25 mcg (1,000 unit) capsule 25 mcg PO DAILY omeprazole 40 mg capsule,delayed release(DR/EC) 40 mg PO BID furosemide 40 mg tablet 40 mg PO BID spironolactone 25 mg tablet 25 mg PO DAILY amlodipine 10 mg tablet 10 mg PO DAILY simvastatin 40 mg tablet 40 mg PO DAILY acyclovir 200 mg capsule 200 mg PO 5X/DAY PRN silodosin 8 mg capsule 8 mg PO DAILY Rx Instructions: must administer with a meal/food nitroglycerin [Nitrostat] 0.4 MG tablet, sublingual 0.4 mg Sublingual DIRECTED carbidopa-levodopa [Sinemet] 25-100 mg tablet 2 tab PO HS cephalexin 500 mg capsule 500 mg PO QID Eliquis 5 mg tablet 5 mg PO BID finasteride 5 mg tablet 5 mg PO HS folic acid 1 mg tablet 1 mg PO DAILY losartan 50 mg tablet 50 mg PO DAILY cyanocobalamin (vitamin B-12) [Vitamin B-12] 1,000 mcg tablet 1,000 mcg PO DAILY propranolol 10 mg tablet 10 mg PO BID melatonin 3 mg tablet 3 mg PO HS hydroxyzine HCl 50 mg tablet 50 mg PO QHS tramadol 25 mg tablet 25 mg PO Q6H PRN
--- NOTE | 2023-09-26 09:36 | W.PM.HP.N ---
Date of service: 09/26/23 Time of Service: 09:36 Assessment and Plan Assessment and plan (1) Acute pain of right lower extremity: Status: Acute Assessment and plan: Imaging showing subacute fracture of the right knee with hardware in place and a small effusion -Orthopedic surgery consulted -CT reviewed and compared to previous images from [facility] with concern for loose femoral component that might not be obvious -Recommendations for -Straight knee brace -WBAT -f/u in office in 2-3 weeks - no recommendation for MRI Pain management with -Scheduled Tylenol - Tramadol -Lidocaine patch - initially reluctant to give NSAID but s/p discussion with Dr. Lee and Pharmacy (-1 vs -2), trial of Celebrex 100 mg PO BID intitated (2) Ambulatory dysfunction: Status: Acute Assessment and plan: Physical therapy consult Administered pain medicine prior to ambulation patient to wear prescribe orthopedic shoes/soles to stand and ambulate (3) Discharge planning issues: Status: Acute Assessment and plan: HH PT VS STR Discussed with Dr. Durham History of Present Illness History of Present Illness Chief Complaint: ambulatory dysfunction, knee pain Narrative: This 83-year-old male patient with a past medical history of right lower extremity femoral fracture and knee replacement at [facility] presented on 09/25/2023 to the ED at [facility] for evaluation of right leg pain. The patient reported an acute onset this afternoon while he was doing home physical therapy exercises and range of motion of his right lower extremity. For people with longer legs thing that the next year at the time the patient reported hearing a pop and experiencing acute onset of pain localized behind his right knee. Patient described pain as severe and radiating up to his lower back without associated numbness or tingling. The patient complained of being unable to walk. The patient denied fall. X-ray completed in the ED was concerning for possible lucency and effusion in the right knee. [facility] orthopedic services were consulted and compared the previous and current images without major significant differences seen today but due to symptoms recommendation for CT scan was issued. CT again reviewed by orthopedic team at [facility] without evidence of acute fracture or change in artery status. In the ED the patient reported feeling better after receiving medication for sciatica but still unable to ambulate. The patient was kept overnight for evaluation with physical therapy. In the morning the patient was still unable to ambulate with physical therapy. The hospitalist was consulted and patient admitted to the medical surgical floor for evaluation and management of right lower extremity pain, knee effusion, and subacute fracture of the right distal femur shaft with hardware in place. When seen the patient denied dizziness, lightheadedness, congestion, recent infection, chest pain, shortness of breath or respiratory symptoms, gastrointestinal symptoms or dysuria. The patient also reported multiple surgery to the back for initially lumbar stenosis then also for cervical radiculopathy. The patient described the pain as less intense than when initially arrived in the ED. The patient also mentioned that when he does not wear is prescription orthopedics prosthesis in his shoes, his gait is less stable as he fears falls. The patient confirmed that he is a DNR/DNI. Review of Systems All systems reviewed & are unremarkable except as noted in HPI and below PFSH All Active Problems (Updated 09/26/23 @ 18:56 by Wendie Sumner APRN) Discharge planning issues (Acute) Ambulatory dysfunction (Acute) Acute pain of right lower extremity (Acute) Inability to walk (Acute) Cervical myelopathy (Acute) Right leg weakness (Acute) DNR (do not resuscitate) (Acute) Plantar wart, right foot (Acute) Neuropathy, idiopathic (Acute) Localized edema (Acute) bi-lateral ankle edema Venous insufficiency of both lower extremities (Acute) with chronic stasis changes Nail dystrophy (Acute) Imbalance (Acute) Lumbar stenosis (Acute) Irregular heart beat (Acute) Medical History Hyponatremia Recurrent falls History of GI diverticular bleed Afib Abdominal pain, suprapubic Dizziness 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 f/u with Dr. Roger @ [facility] and is aware he is having cataract Obesity History of neck pain Stasis dermatitis Seborrheic keratosis Adenomatous colon polyp Pain in left shoulder Knee pain, left Actinic keratosis Insomnia BPH (benign prostatic hyperplasia) History of excessive sweating HTN (hypertension) Achalasia GERD (gastroesophageal reflux disease) Depression ASCVD (arteriosclerotic cardiovascular disease) angioplasty 1993 Surgical History History of total right knee replacement (TKR) S/P PTCA (percutaneous transluminal coronary angioplasty) History of cervical discectomy H/O laminectomy S/P carpal tunnel release S/P tendon repair EGD - [facility] (12/29/16) Colonoscopy - [facility] (12/29/16) Family History Father Prostate cancer Hypertension Stroke Mother Hypertension Maternal Grandmother Stomach cancer Social History Smoking/Tobacco Use Status: Former Tobacco Use Quit Date: 02/21/85 Smoking risk assessment performed?: Yes Alcohol Intake: current Alcohol Intake frequency: a few times a month Alcohol type: beer Details: <1 DRINK PER DAY OF 06-05-20; Drug use: Never Substance use type: does not use Household members: none Housing: house Number of Children: 2 current occupation: Retired What is your relationship status?: Panel score (0-1 are the most socially isolated patients): 0 Do you feel safe at home: Yes Additional Social history: lives alone Meds Allergies and Home Medications Allergies Allergy/AdvReac Type Severity Reaction Status Date / Time hydromorphone HCl (From Allergy Intermediate Other (See Verified 09/25/23 13:35 Dilaudid) Comment) morphine Allergy Intermediate Itching Verified 09/25/23 13:35 vancomycin Allergy Intermediate Other (See Verified 09/25/23 13:35 Comment) acetaminophen (From Vicodin) Allergy Unknown Other (See Verified 09/25/23 13:35 Comment) hydrocodone bitartrate (From Allergy Unknown Other (See Verified 09/25/23 13:35 Vicodin) Comment) tamsulosin Allergy Unknown Other (See Verified 09/25/23 13:35 Comment) gabapentin AdvReac Intermediate Makes pt. Verified 09/25/23 13:35 loopy Home Medications ?Medication ?Instructions ?Recorded ?Confirmed ?Type Nitrostat 0.4 mg sublingual tablet 0.4 mg sublingual DIRECTED 12/21/16 09/25/23 History (nitroglycerin) acebutolol 400 mg capsule 400 mg PO BID 07/31/20 09/25/23 History acetaminophen 650 mg 1,300 mg PO Q12H 07/31/20 09/25/23 History tablet,extended release cholecalciferol (vitamin D3) 25 25 mcg PO DAILY 07/31/20 09/25/23 History mcg (1,000 unit) capsule mecobalamin (vitamin B12) 1,000 2,000 mcg PO DAILY 07/31/20 09/25/23 History mcg chewable tablet (B12 Active) omeprazole 40 mg capsule,delayed 40 mg PO BID 07/31/20 09/25/23 History release prazosin 1 mg capsule 1 mg PO TID 07/31/20 09/25/23 History triamcinolone acetonide 0.1 % 1 applic topical BID PRN 07/31/20 09/25/23 History topical cream walker #1 ea 07/31/20 09/25/23 History apixaban 5 mg tablet (Eliquis) 5 mg PO BID 12/31/20 09/25/23 History finasteride 5 mg tablet 5 mg PO HS 12/31/20 09/25/23 History spironolactone 25 mg tablet 25 mg PO DAILY 11/11/21 09/25/23 History amlodipine 10 mg tablet 10 mg PO DAILY 02/08/22 09/25/23 History Sinemet 25 mg-100 mg tablet 2 tab PO HS 02/09/22 09/25/23 History (carbidopa-levodopa) furosemide 40 mg tablet 40 mg PO BID 03/31/22 09/25/23 History acyclovir 200 mg capsule 200 mg PO 5X/DAY PRN 08/17/22 09/25/23 History simvastatin 40 mg tablet 40 mg PO DAILY 08/17/22 09/25/23 History cephalexin 500 mg capsule 500 mg PO QID 05/05/23 09/25/23 History silodosin 8 mg capsule 8 mg PO DAILY 06/07/23 09/25/23 History cyanocobalamin (vitamin B-12) 1,000 mcg PO DAILY 09/25/23 09/25/23 History 1,000 mcg tablet (Vitamin B-12) folic acid 1 mg tablet 1 mg PO DAILY 09/25/23 09/25/23 History hydroxyzine HCl 50 mg tablet 50 mg PO QHS 09/25/23 09/25/23 History losartan 50 mg tablet 50 mg PO DAILY 09/25/23 09/25/23 History melatonin 3 mg tablet 3 mg PO HS 09/25/23 09/25/23 History propranolol 10 mg tablet 10 mg PO BID 09/25/23 09/25/23 History tramadol 25 mg tablet 25 mg PO Q6H PRN 09/25/23 09/25/23 History Exam Narrative Exam Narrative: Constitutional The patient is lying in bed without acute distress HENMT: Facial structures with normal appearance Neuro:alert and oriented to self, person, place time and situation. No neurological focal deficit, Chest:Chest is symmetrical and normal appearance Resp: Normal respiratory pattern, speaks in full sentences, unlabored breathing, clear lung bilaterally Cardio: regular rhythm, S1, S2, no murmur, capillary refill<3 sec., bilateral radial and dorsalis pedis pulses are positive,positive right popliteal pulse GI: Abdomen is not distended, soft and non tender, bowel sounds are present : Negative Costovertebral angle tenderness, no bladder distension Back/spine/Pelvis: No back tenderness, normal alignment Integumentary: No skin lesions or rash Extremities: Pain to right knee irradiating to right groin on knee flexion, discomfort localized to knee when immobile Psych: RASS 0, congruent- anxious mood and normal affect. Results Labs 09/26/23 12:45 09/26/23 12:45 Last Vital Signs Temp 36.6 C 09/25/23 18:25 Pulse 54 L 09/26/23 06:24 Resp 14 09/26/23 06:24 BP 162/78 H 09/26/23 06:24 Pulse Ox 95 09/26/23 06:24 Time Spent Time spent with Patient: >75 minutes Time was spent: preparing to see the patient(eg.review tests), obtaining and/or reviewing separately otained hiistory, ordering medications,tests, procedures, referring, communicating with other health workforce investment act career manager, indepentently interpreting results, counseling the patient and care coordination
[2023-09-26] MEDS: Propranolol 10 MG TAB PO (09:43)
--- NOTE | 2023-09-26 09:50 | PT.INIE ---
PT Notes Visit Reasons: leg pain Inpatient Physical Therapy Evaluation Date: 09/26/23 Referring Doctor: Dr. Mitul Johnson PT Orders: PT CONSULT: safety consult for d/c Precautions: fall, standard Patient Profile/Admitting Diagnosis: Mr. Beard is an 83 year-old man with h/o right TKA in 2013, right femur fx s/p IMN May 2023, HTN, HLD, heart disease s/p SC, aortic stenosis, paroxysmal atrial fibrillation on apixaban, prior ETOH abuse, BPH, GERD, depression, RLS, insomnia, and OA. He presented to the ED yesterday with acute onset RLE pain that began after performing standing leg exercises. He has a long history of degenerative issues of the spine. Underwent L-spine surgery in 1995 - per notes L2-3 and L4-5 laminectomies - for falls, difficulty walking, and right leg weakness. He underwent c-spine surgery in Jan [address] Slade - C3-4 discectomy, C6 corpectomy, and C5-7 fusion - for neck and bilateral shoulder pain. Finally, he underwent L3-4 laminectomy/facetectomy in 2017, again with Dr. Slade for hip pain which resolved following the surgery. Social History/Home Situation: Darryl currently resides at [facility], where he ambulates independently with FWW. He had been working with PT regularly. Equipment Owned/DME: [employer], FWW Subjective: Darryl states that his right leg had been feeling good since surgery until yesterday. He was completing HS curls while standing at his walker when he felt a sharp pain down his right leg, with inability to put weight on the leg due to pain. Reports pain in groin area, extending down front and back of thigh and up into small of his back. States that the lower leg feels funny, although he does not endorse numbness or tingling. Objective: General Observation: Resting in bed. No lines. Mental Status: A&Ox3. Pleasant and cooperative . Pain: well managed when lying down, severe when standing ROM: Right Upper Extremity: WFL Left Upper Extremity: WFL Right Lower Extremity: Tolerates hip flexion to 95* functionally. Actively demonstrates IR/ER without increased pain. Right knee flexion allows 90* functionally. SLR to 20* due to pain. Left Lower Extremity: Hip flexion 100*. Knee motion 0-120*. SLR allows 45* limited by increase in RLE pain. Strength: Right Upper Extremity: Shoulder flexion 3/5 or greater. Biceps and triceps WFL. Left Upper Extremity: Shoulder flexion 3/5 or greater. Biceps and triceps WFL. Right Lower Extremity: Hip flexion 3/5 or greater. Hamstrings 3-/5. Quads 3/5 or greater. Ankle DF 5/5. EHL 5/5. Left Lower Extremity: Hip flexion 5/5. Quads5/5. Ankle DF 5/5. Bed Mobility/Transfers: supine-sit: mod A sit-stand: mod A x 2 stand-sit: min A x 2 Gait: Unable. Patient able to stand at walker, but unable to advance LLE for ambulation. Attempt weight shifts, although with increased pain. Balance: Static Sitting: normal Dynamic Sitting: normal Static Standing: fair Dynamic Standing: poor Special Tests: SLR (+) right at 20* Well Leg Raise (+) at 45* Slump (-) Mobility Limitations Standardized Measure [facility] 6 clicks Basic Mobility Inpatient Short Form: Raw Score: 14 CMS Score: 61% impairment Informed Consent/Education: Patient instructed in purpose of PT consult and plan of care. Treatment: Initial Evaluation (13468) Assessment: Patient is an 83 year old male referred to physical therapy services for safety consultation for d/c planning. Patient presents with inability to transfer or ambulate independently due to severe pain, which appears to be radicular in nature. He currently demonstrates the following impairment level findings: 1. balance impairment 2. unable to tolerate WBing to RLE 3. (+) SLR on the right with extensive h/o spinal pain Impairments are contributing to the following functional limitations: 1. unable to ambulate 2. unable to independently transfer Patient is assessed as a Moderate 30682 complexity based on the following: History: as above Examination: functional limitations as above Presentation: unstable due to ongoing medical workup Decision Making: moderate complexity Plan of Care/Treatment Plan: One time consult for mobility assessment. DISCHARGE RECOMMENDATIONS: Patient unable to safely ambulate due to uncontrolled pain. This was verbalized to ER physician for discharge planning. TREATMENT CODE/TIME: 44581 Dora Johnson PT, DPT [facility] Please sign an return this page within 30 days if you agree with the above POC. Thank you! Physician Signature Date [facility] COUNT INCLUDES THE [facility] All Active Problems (Updated 09/26/23 @ 09:56 by Wendie Sumner APRN) Ambulatory dysfunction (Acute) Acute pain of right lower extremity (Acute) Inability to walk (Acute) Cervical myelopathy (Acute) Right leg weakness (Acute) DNR (do not resuscitate) (Acute) Plantar wart, right foot (Acute) Neuropathy, idiopathic (Acute) Localized edema (Acute) bi-lateral ankle edema Venous insufficiency of both lower extremities (Acute) with chronic stasis changes Nail dystrophy (Acute) Imbalance (Acute) Lumbar stenosis (Acute) Irregular heart beat (Acute) Medical History Hyponatremia Recurrent falls History of GI diverticular bleed Afib Abdominal pain, suprapubic Dizziness 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 f/u with Dr. Roger @ [facility] and is aware he is having cataract Obesity History of neck pain Stasis dermatitis Seborrheic keratosis Adenomatous colon polyp Pain in left shoulder Knee pain, left Actinic keratosis Insomnia BPH (benign prostatic hyperplasia) History of excessive sweating HTN (hypertension) Achalasia GERD (gastroesophageal reflux disease) Depression ASCVD (arteriosclerotic cardiovascular disease) angioplasty 1993 Surgical History History of total right knee replacement (TKR) S/P PTCA (percutaneous transluminal coronary angioplasty) History of cervical discectomy H/O laminectomy S/P carpal tunnel release S/P tendon repair EGD - MAC (12/29/16) Colonoscopy - MAC (12/29/16)
--- NOTE | 2023-09-26 11:37 | W.PC.ACHO ---
Registration Status: Primary Language: Preferred Language: ED Information & Data Chief Complaint Orthopedic 09/25/23 13:37 Triage Note Patient complaining of right 09/25/23 13:27 knee pain. Right femur fx in april Medical / Surgical History (Last Reviewed 09/25/23 @ 16:40 by Mitul Johnson MD) Hyponatremia Recurrent falls History of GI diverticular bleed Afib Abdominal pain, suprapubic Dizziness Status post replacement of knee joint Alcohol abuse, in remission Leg edema Syncope Lumbar spinal stenosis Restless leg syndrome Osteoarthritis Aortic stenosis Hyperlipidemia CAD (coronary artery disease) Obesity History of neck pain Stasis dermatitis Seborrheic keratosis Adenomatous colon polyp Pain in left shoulder Knee pain, left Actinic keratosis Insomnia BPH (benign prostatic hyperplasia) History of excessive sweating HTN (hypertension) Achalasia GERD (gastroesophageal reflux disease) Depression ASCVD (arteriosclerotic cardiovascular disease) (Last Reviewed 09/25/23 @ 16:40 by Mitul Johnson MD) History of total right knee replacement (TKR) S/P PTCA (percutaneous transluminal coronary angioplasty) History of cervical discectomy H/O laminectomy S/P carpal tunnel release S/P tendon repair EGD - MAC (12/29/16) Colonoscopy - MAC (12/29/16) Most Recent Vital Signs Temperature 36.6 C 09/26/23 11:34 Temperature Source Temporal Artery Scan 09/26/23 11:34 Pulse 55 L 09/26/23 11:34 Respiratory Rate 16 09/26/23 11:34 Respiratory Effort Normal, Non-Labored 09/26/23 02:01 Respiratory Depth Normal 09/26/23 02:01 Respiratory Pattern Normal 09/26/23 02:01 Blood Pressure 115/79 09/26/23 11:34 Blood Pressure Mean 103 09/26/23 06:19 Blood Pressure Position Supine 09/26/23 02:01 Pulse Oximetry 98 09/26/23 11:34 Oxygen Delivery Method Room Air 09/26/23 11:34 Oxygen Flow Rate 0 09/26/23 11:34 Pain Level 0 09/26/23 11:34 Comment history of afib 09/26/23 11:34 Allergies hydromorphone HCl (From Dilaudid) Allergy (Intermediate, Verified 09/25/23 13:35) Other (See Comment) pt. states i go wacko morphine Allergy (Intermediate, Verified 09/25/23 13:35) Itching vancomycin Allergy (Intermediate, Verified 09/25/23 13:35) Other (See Comment) pt. stated it was killing me acetaminophen (From Vicodin) Allergy (Unknown, Verified 09/25/23 13:35) Other (See Comment) pt. denies this hydrocodone bitartrate (From Vicodin) Allergy (Unknown, Verified 09/25/23 13:35) Other (See Comment) tamsulosin Allergy (Unknown, Verified 09/25/23 13:35) Other (See Comment) gabapentin Adverse Reaction (Intermediate, Verified 09/25/23 13:35) Makes pt. loopy Precautions Isolation Standard precaution 09/25/23 13:36 Active Medications Generic Name Dose Route Start Last Admin Trade Name Freq PRN Reason Stop Dose Admin Propranolol HCl 10 mg 09/26/23 08:30 09/26/23 09:43 Propranolol 10 Mg Tab PO 10 mg BID JOSE LUIS Administration Diet Orders Category Date Time Status Heart Healthy Eating [DIET] Nutrition 09/26/23 Lunch Active Diagnostics 09/26/23 Range/Units 10:00 WBC Pending RBC Pending Hgb Pending Hct Pending MCV Pending MCH Pending MCHC Pending RDW Pending Plt Count Pending MPV Pending Immature Gran % Pending Neutrophils % Pending Lymphocytes % Pending Monocytes % Pending Eosinophils % Pending Basophils % Pending Absolute Neutrophils Pending Absolute Lymphocytes Pending Absolute Monocytes Pending Absolute Eosinophils Pending Absolute Basophils Pending Sodium Pending Potassium Pending Chloride Pending Carbon Dioxide Pending Anion Gap Pending BUN Pending Creatinine Pending Est GFR (CKD-EPI 2020) Pending Glucose Pending Calcium Pending Total Bilirubin Pending AST Pending ALT Pending Alkaline Phosphatase Pending Total Protein Pending Albumin Pending Intake and Output - 24 Hour Total 09/25/23 13:21 thru 09/25/23 22:02 Intake Total 250 Balance 250 Weight 110.7 kg Intake: Oral 250 Falls Risk Assessment History of Falls Previous History 09/25/23 13:38 Contributing Factors Impairments 09/25/23 13:38 Ambulatory Aids Uses ambulatory device + 09/25/23 13:38 Tubes/Lines None 09/25/23 13:38 Gait Evaluation W/any additional score 09/25/23 13:38 Cognition No cognitive impairment 09/25/23 13:38 Fall Total Score 68 09/25/23 13:38 Level of Risk High Risk 09/25/23 13:38 Problems (Last Reviewed 09/25/23 @ 16:40 by Mitul Johnson MD) Ambulatory dysfunction (Acute) Acute pain of right lower extremity (Acute) Notes 09/26/23 06:23 Nursing Notes by Siena Lehman Nursing Note:Pt up to commode 2 person assist. Ordered pt breakfast. Initialized on 09/26/23 06:23 - END OF NOTE 09/26/23 01:35 Nursing Notes by Siena Lehman Nursing Note: Pt appears to be sleeping. Equal rise and fall of chest noted. Initialized on 09/26/23 01:35 - END OF NOTE 09/26/23 00:24 Nursing Notes by Siena Lehman Nursing Note: 2 person assist to get pt up with walker. Moved stretcher out from behind pt and moved hospital bed in behind pt to sit on. Pt having a lot of R sided groin, knee, thigh and buttocks pain during the transfer. Pt needed 2 person assist to get into the bed. Call light attached to his gown and instructions on use of bed controlls given to pt. Covered with warm blankets and turned down lights. Initialized on 09/26/23 00:24 - END OF NOTE 09/25/23 22:18 Nursing Notes by Siena Lehman Nursing Note: Assumed care of pt. Report from Octavia Leonard. Introduced self to pt. Updated pt on plan of care. Had area secretary call for a hospital bed. Pt finished his sandwich and soda. Initialized on 09/25/23 22:18 - END OF NOTE v v v v v v v v v Sending and/or Receiving Nurses: Please use comment section below to note any information pertinent to the patient hand-off not included above. Information / Comments: Report received from: Vianey Smith RN
[2023-09-26 12:56] LABS: Abs Immature Grans 0.04 10^3/uL (0.0-0.06); Absolute Lymphocyte Count 0.67 10^3/uL (1.2-3.4); Absolute Monocyte Count 0.52 10^3/uL (0.1-0.8); HCT 41.6 % (40.0-50.0); HGB 13.8 g/dL (13.5-17.5); Immature Grans % 0.5 %; Lymphocytes % 8.8 %; MCH 30.4 pg (27.0-33.0); MCHC 33.2 % (32.0-36.0); MCV 92 fL (80-95); MPV 9.8 fL (8.0-11.0); Monocytes % 6.8 %; Neutrophils % 83.9 %; Platelet Count 174 10^3/uL (130-400); RBC 4.54 10^6/uL (4.36-5.78); RDW 14.9 % (11.8-14.1); RDW-SD 50.2 fL; WBC 7.63 10^3/uL (4.4-10.8)
[2023-09-26 13:11] LABS: ALT 11 U/L (16-63); AST 11 U/L (15-37); Albumin 3.5 g/dL (3.4-5.0); Alkaline Phosphatase 93 U/L (46-116); Anion Gap 7.3 mmol/L (3-11); BUN 34 mg/dL (7-18); Bilirubin, Total 0.71 mg/dL (0.2-1.0); CO2 28.7 mmol/L (21.0-32.0); CREATININE 1.3 mg/dL (0.70-1.30); Calcium 9.3 mg/dL (8.5-10.1); Chloride 97 mmol/L (98-107); Estimated GFR 54.17 (mL/min/1.73m2); Glucose 112 mg/dL (74-106); Potassium 4.6 mmol/L (3.5-5.1); Sodium 133 mmol/L (136-145); Total Protein 7.6 g/dL (6.4-8.2)
--- NOTE | 2023-09-26 13:16 | W.ORTHOCONSU ---
Date of service: 09/26/23 Time of Service: 12:40 History of Present Illness History of Present Illness Chief Complaint: Right Knee/Leg Pain Narrative: Darryl is an 83-year-old male who has a complex medical and musculoskeletal history. In short, he underwent a right knee replacement many years ago at [facility]. He denies having any significant issues. However, over the past 6 months he had multiple falls. In April she suffered a fall landing on the commode and suffering a displaced femoral shaft fracture. This was fixed with an intramedullary device at [facility]. He was discharged to a rehab facility at [facility] and then transition to an assisted living facility. He has been there since April and feels he has been making good progress. However, when he was doing his exercises yesterday he felt something pop within the right leg and had immediate pain and difficulty with weightbearing. He was seen in the emergency department with x-rays and CT scan which did show patent fracture line about the right femur but no other acute changes. He has been unable to bear weight. He reports pain initially through the distal aspect of the thigh and the knee, he points to area laterally but then extends this medially and at the medial aspect of the thigh. However, since that time he feels that he has pain throughout the leg and that of the groin as well as the low back. This was not present initially but seem to be developing. He has a significant low back history with multiple spinal surgeries including fusion and decompression. At rest he denies having significant pain. He does have some pain if he tries to move in the bed although worse with pressure to the knee itself. He does feel that he has been having some pain about the knee prior to this fall. Consults Consult date: 09/26/23 Requesting physician: Wendie Sumner Consult Reason Right leg pain status post knee replacement and fracture Assessment and Plan Assessment and plan (1) Periprosthetic fracture of shaft of femur: Status: Acute (2) Painful total knee replacement, right: Status: Acute (3) Ambulatory dysfunction: Status: Acute Assessment and plan: Darryl is an 83-year-old male who has a complex previous history. His most recent admission for this acute sudden pain with a pop is unclear in his origin. My suspicion is that it is related to the fracture site of his right femur. It is possible that something shifted within the right femur although it is not clearly obvious what that may be. In that situation, there is no need to move quickly. Is also possible that he had some acute loosening of the knee component although I find this less likely. He does seem to have some anxiety about this all and responds relatively positively to the entire examination. This makes true determination of the location where the epicenter, of the pain source somewhat challenging. He does have a complex history of multiple previous spine surgeries. I think it is fair to assume that something shifted or moved in his right leg given the story and presentation. However, without being able to identify anything of significant change on the CT scan or x-ray, there is no need for any urgent intervention. At this point, I would recommend placing him into a knee immobilizer to help support the knee. He may then start to bear weight. Follow-up x-rays may be helpful including the entirety of the femur. If his pain seems to localize elsewhere this can be further evaluated but his initial complaint of pain was the knee and the focus of pain during the examination was in the distal thigh and the knee. He has had all of his previous surgery at [facility]. This is a complex fracture situation which should be reevaluated by the team at [facility] within the next few weeks. He may weight-bear as tolerated although this seems to be challenging for him. Knee immobilizer should be worn during mobilization but may be removed during times of rest. Review of Systems All systems reviewed & are unremarkable except as noted in HPI and below PFSH All Active Problems (Updated 09/27/23 @ 05:29 by Kenji Lee MD) Painful total knee replacement, right (Acute) Periprosthetic fracture of shaft of femur (Acute) Discharge planning issues (Acute) Ambulatory dysfunction (Acute) Acute pain of right lower extremity (Acute) Inability to walk (Acute) Cervical myelopathy (Acute) Right leg weakness (Acute) DNR (do not resuscitate) (Acute) Plantar wart, right foot (Acute) Neuropathy, idiopathic (Acute) Localized edema (Acute) bi-lateral ankle edema Venous insufficiency of both lower extremities (Acute) with chronic stasis changes Nail dystrophy (Acute) Imbalance (Acute) Lumbar stenosis (Acute) Irregular heart beat (Acute) Medical History Hyponatremia Recurrent falls History of GI diverticular bleed Afib Abdominal pain, suprapubic Dizziness 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 f/[place] Roger [place] [facility] and is aware he is having cataract Obesity History of neck pain Stasis dermatitis Seborrheic keratosis Adenomatous colon polyp Pain in left shoulder Knee pain, left Actinic keratosis Insomnia BPH (benign prostatic hyperplasia) History of excessive sweating HTN (hypertension) Achalasia GERD (gastroesophageal reflux disease) Depression ASCVD (arteriosclerotic cardiovascular disease) angioplasty 1993 Surgical History History of total right knee replacement (TKR) S/P PTCA (percutaneous transluminal coronary angioplasty) History of cervical discectomy H/O laminectomy S/P carpal tunnel release S/P tendon repair EGD - MAC (12/29/16) Colonoscopy - MAC (12/29/16) Family History Father Prostate cancer Hypertension Stroke Mother Hypertension Maternal Grandmother Stomach cancer Social History Smoking/Tobacco Use Status: Former Tobacco Use Quit Date: 02/21/85 Smoking risk assessment performed?: Yes Alcohol Intake: current Alcohol Intake frequency: a few times a month Alcohol type: beer Details: <1 DRINK PER DAY OF 06-05-20; Drug use: Never Substance use type: does not use Household members: none Housing: house Number of Children: 2 current occupation: Retired What is your relationship status?: Panel score (0-1 are the most socially isolated patients): 0 Do you feel safe at home: Yes Additional Social history: lives alone Exam Narrative Exam Narrative: Sitting up in the hospital bed. No acute distress. Alert and oriented x 3. Evaluation the right lower extremity shows well-healed incisions throughout. No significant area of swelling. There may be a very mild effusion about the right knee. There is no bruising or ecchymosis. Examination is limited in his ability to relax. He seems quite anxious and globally positive throughout the examination. And trying to isolate the various parts of his leg he does seem to have some discomfort with palpation about the knee joint lines medially and laterally he has pain to palpation throughout the thigh, particular adjacent to where the fracture is. He has less pain over the greater trochanter. He reports global pain with palpation about his pelvis but there is no 1 area that seems subjectively increased pain significantly. When he relaxes and I can manipulate the leg he does not seem to have significant pain with internal and external rotation of the hip although he does have some mild knee pain and distal thigh pain. Gentle flexion and extension of the right hip does not seem to increase his pain. Once again, manipulation of the knee joint does seem to increase his pain, tickly medially. He is able to activate his quad and has no quadriceps defect. Results Last Vital Signs Temp 36.8 C 09/26/23 11:40 Pulse 55 L 09/26/23 11:40 Resp 16 09/26/23 11:40 BP 115/79 09/26/23 11:40 Pulse Ox 98 09/26/23 11:40 Labs 09/26/23 12:45 09/26/23 12:45 Labs: Laboratory Results - last 24 hr 09/26/23 12:45 WBC 7.63 RBC 4.54 Hgb 13.8 Hct 41.6 MCV 92 MCH 30.4 MCHC 33.2 RDW 14.9 H Plt Count 174 MPV 9.8 Immature Gran % 0.5 Neutrophils % 83.9 Lymphocytes % 8.8 Monocytes % 6.8 Eosinophils % 0.0 Basophils % 0.0 Nucleated RBC % 0.0 Absolute Neutrophils 6.40 Absolute Lymphocytes 0.67 L Absolute Monocytes 0.52 Absolute Eosinophils 0.00 Absolute Basophils 0.00 Sodium 133 L Potassium 4.6 Chloride 97 L Carbon Dioxide 28.7 Anion Gap 7.3 BUN 34 H Creatinine 1.3 Est GFR (CKD-EPI 2020) 54.17 Glucose 112 H Calcium 9.3 Total Bilirubin 0.71 AST 11 L ALT 11 L Alkaline Phosphatase 93 Total Protein 7.6 Albumin 3.5 Imaging Imaging Studies: X-ray of the right knee, femur, and pelvis from 09/25/2023 were reviewed. This shows a cemented knee replacement in good position without gross signs of loosening. There is some notable wear about the patella with adjacent ossicles, likely within the substance of the quadriceps and patellar tendons. There may be a very slight effusion. There is a intramedullary aundrea transfixing a distal third femoral shaft fracture. There still is a pink fracture line seen on the AP view with a butterfly fragment medially. There is callus which is forming around the femur as well. No signs of loosening of the screws. CT scan of the right leg was also reviewed. This shows the aforementioned fracture. There is fracture line still patent throughout. I do not see any bridging bone at the main fracture line more proximally. There is no sign of fracture about the femoral head. There is some mild cystic change and somewhere to suggest he has arthritis about the right hip. There is some small area of heterotopic ossification seen in the lateral hip soft tissues adjacent to the starting point of the femoral nail. Evaluation more distally into the knee does not show any propagation of fracture line into the knee components. I do not detect any overt signs of loosening.
[2023-09-26] MEDS: traMADol 50 MG TAB 25 MG PO ×2 (14:21→20:26)
[2023-09-26] MEDS: Diclofenac 1% Gel 100 GM TUBE TP ×2 (14:21→20:30)
[2023-09-26] MEDS: Furosemide 40 MG TAB PO (16:45)
--- NOTE | 2023-09-26 17:01 | PT.INPN ---
PT Notes Visit Reasons: Right Knee effusion, R Knee Subacute Fracture, AMB Inpatient Physical Therapy Re-Evaluation Date: 09/26/23 Referring Doctor: Dr. Mitul Johnson PT Orders: PT CONSULT: safety consult for d/c Precautions: fall, standard Subjective: Darryl states that his right leg remains painful. He was evaluated in the ER earlier today, then admitted on observation status. Ortho consult has been ordered, although no notes available at time of consult. Per WIRE STRAIGHTENING MACHINE OPERATOR, ortho requests trying knee immobilizer to right knee. Darryl states that he continues to have pain through the anterior and posterior thigh, groin and low back. Denies numbness or tingling. Endorses weak and wobbly arms and legs. States everything feels weaker than it had a couple of days ago. He is discouraged. Objective: General Observation: Resting in bed. No lines. Mental Status: A&Ox3. Pleasant and cooperative . ROM: Right Upper Extremity: WFL Left Upper Extremity: WFL Right Lower Extremity: Tolerates hip flexion to 100* passively. In sitting, tolerates 40* hip ER, 20* IR without pain. Right knee flexion allows 110* passively. SLR to 50* due to pain. Left Lower Extremity: Hip flexion 100*. Knee motion 0-120*. SLR allows 45* limited by increase in RLE pain. Strength: Right Upper Extremity: Shoulder flexion 3/5 or greater. Biceps and triceps WFL. Guardian Family Member is weak bilat. Wrist extension 3+/5. He has wasting throughout the hand intrinsics and forearms bilat. Left Upper Extremity: Shoulder flexion 3/5 or greater. Biceps and triceps WFL. Guardian Family Member is weak bilat. Wrist extension 3+/5. He has wasting throughout the hand intrinsics and forearms bilat. Right Lower Extremity: Hip flexion 3/5 or greater. Hamstrings 4-/5, without pain reproduction. Quads 3/5 or greater. Ankle DF 5/5. EHL 5/5. Left Lower Extremity: Hip flexion 5/5. Quads5/5. Ankle DF 5/5. Bed Mobility/Transfers: supine-sit: min A sit-stand: min A with bed elevated, knee immobilizer, shoes on per patient request stand-sit: min A Gait: Unable. With FWW and right knee immobilizer, he's able to statically stand x 3 minutes. He remains extremely anxious throughout. With encouragement, he's able to take 4 side steps at EOB with min A. Balance: Static Sitting: normal Dynamic Sitting: normal Static Standing: fair Dynamic Standing: poor Informed Consent/Education: Patient instructed in purpose of PT consult and plan of care. Treatment: Therapeutic Exercises ([id number]): Instructed in activities to improve activity tolerance and strength sit-stand x 2 static stand x 3 minutes with bilat UE support to FWW, min A at the trunk seated march 10x seated ankle pumps 10x supine heel slides 10x Assessment: Patient is an 83 year old male referred to physical therapy services for safety consultation for d/c planning in the ER. He was unable to ambulate at that time, and subsequently admitted on observation status. On re-evaluation this afternoon, he demonstrates continued pain and instability in standing, with significant apprehension with all weight bearing activity. He complains of pain primarily in groin area in standing, and describes sensation of both legs feeling wobbly. He does have orthopedics involved at this point and appreciate their guidance as we progress his ambulation. He requires PT intervention to maximize mobility and safety. GOALS: 1. supine-sit: supervision 2. sit-supine: supervision 3. sit-stand: supervision 4. stand-sit: supervision 4. Able to ambulate 50' with FWW and supervision Plan of Care/Treatment Plan: Plan to see patient 1-2x/day x 7 days. Care may be provided by ANALYSIS REPORTING DEVELOPER and POC has been discussed with ANALYSIS REPORTING DEVELOPER. Treatment will consist of the following: Therapeutic Activities: for transfer training and safety with functional tasks Therapeutic Exercises: to improve strength and activity tolerance Gait Training: gait and stair training with use of knee immobilizer and assistive device Neuromuscular Re-education: balance retraining DISCHARGE RECOMMENDATIONS: Home with PT vs SNF for continued progress toward goals TREATMENT CODE/TIME: [id number] Dora Johnson, PT, DPT [facility]
[2023-09-26] MEDS: Omeprazole 20 MG CAPCR 40 MG PO (20:27)
[2023-09-26] MEDS: Simvastatin 40 MG TAB PO (20:27)
[2023-09-26] MEDS: Acetaminophen 500 MG TAB 1000 MG PO (20:27)
[2023-09-26] MEDS: Finasteride 5 MG TAB PO (20:28)
[2023-09-26] MEDS: Carbidopa 25/Levodopa 100 TAB PO (20:28)
[2023-09-26] MEDS: Celecoxib 100 MG CAP PO (20:28)
[2023-09-26] MEDS: hydrOXYzine HCL 25 MG TAB 50 MG PO (20:28)
[2023-09-26] MEDS: Docusate Sodium 100 MG CAP PO (20:28)
[2023-09-26] MEDS: Apixaban 5 MG TAB PO (20:28)
[2023-09-27 03:36] VITALS: BP 140/70; PULSE 45; RESP 18; TEMP 36.2; O2SAT 96
[2023-09-27] MEDS: traMADol 50 MG TAB 25 MG PO ×3 (04:09→19:48)
[2023-09-27] MEDS: Omeprazole 20 MG CAPCR 40 MG PO ×2 (06:47→19:48)
[2023-09-27 06:59] LABS: Abs Immature Grans 0.04 10^3/uL (0.0-0.06); Absolute Basophil Count 0.02 10^3/uL (0.0-0.2); Absolute Eosinophil Count 0.01 10^3/uL (0.0-0.7); Absolute Lymphocyte Count 1.48 10^3/uL (1.2-3.4); Absolute Monocyte Count 0.64 10^3/uL (0.1-0.8); Absolute Neutrophil Count 5.56 10^3/uL (1.2-6.7); Basophils % 0.3 %; Eosinophils % 0.1 %; HCT 38.8 % (40.0-50.0); HGB 13.1 g/dL (13.5-17.5); Immature Grans % 0.5 %; Lymphocytes % 19.1 %; MCH 30.5 pg (27.0-33.0); MCHC 33.8 % (32.0-36.0); MCV 90 fL (80-95); MPV 10.7 fL (8.0-11.0); Monocytes % 8.3 %; Neutrophils % 71.7 %; Platelet Count 147 10^3/uL (130-400); RBC 4.29 10^6/uL (4.36-5.78); RDW 14.8 % (11.8-14.1); RDW-SD 48.6 fL; WBC 7.75 10^3/uL (4.4-10.8)
[2023-09-27 07:20] VITALS: BP 137/60; PULSE 36; RESP 16; TEMP 35; O2SAT 98
[2023-09-27 07:24] LABS: Anion Gap 8.1 mmol/L (3-11); BUN 43 mg/dL (7-18); CO2 26.9 mmol/L (21.0-32.0); CREATININE 1.3 mg/dL (0.70-1.30); Calcium 8.8 mg/dL (8.5-10.1); Chloride 98 mmol/L (98-107); Estimated GFR 54.17 (mL/min/1.73m2); Glucose 106 mg/dL (74-106); Potassium 4.4 mmol/L (3.5-5.1); Sodium 133 mmol/L (136-145)
[2023-09-27] MEDS: Acetaminophen 500 MG TAB 1000 MG PO ×3 (08:31→19:47)
[2023-09-27] MEDS: Celecoxib 100 MG CAP PO ×2 (08:32→19:47)
[2023-09-27] MEDS: Spironolactone 25 MG TAB PO (08:32)
[2023-09-27] MEDS: Docusate Sodium 100 MG CAP PO ×2 (08:32→19:47)
[2023-09-27] MEDS: Apixaban 5 MG TAB PO ×2 (08:33→19:48)
[2023-09-27] MEDS: Senna TAB 2 TAB PO (08:33)
[2023-09-27] MEDS: Cholecalciferol (Vitamin D3) 1,000 UNIT TAB 1000 UNITS PO (08:33)
[2023-09-27] MEDS: Furosemide 40 MG TAB PO (08:33)
[2023-09-27] MEDS: Folic Acid 1 MG TAB PO (08:33)
[2023-09-27] MEDS: Diclofenac 1% Gel 100 GM TUBE TP ×4 (08:34→19:55)
[2023-09-27] MEDS: Losartan 50 MG TAB PO (08:37)
--- NOTE | 2023-09-27 10:07 | INITIAL_ITS ---
Date of service: 09/27/23 Time of Service: 10:19 Care Management Initial Assmt Initial Assessment Reason for Hospitalization: Right Knee effusion, R Knee subacute fracture Functional Status/Living Situation Patient Presentation: Darryl was working with PT when CM met with him. PT reported that he continues to have pain and difficulty with ambulation, and is currently max assist; SNF is recommended. CM discussed barriers to SNF with Darryl, as he is in observation status. Darryl stated that early this year he was living independently at home, but he had a fall in April and suffered a femoral shaft fracture. He reported that he spent some time at [facility] prior to going to [facility] for rehab for about two months, and then to [facility] for about a month. He then moved to [facility] on August 21, and stated that he was doing very well there until a few days ago, when he started experiencing pain and ambulatory dysfunction after exercising. He stated that in order to return to [facility], he must be independent with his mobility, and able to get to the dining room. He stated that his daughter is supportive, but not able to help him physically. Ortho was consulted and stated that there doesn't appear to be anything acute on imaging. CM will continue to follow. Town of Residence: [facility] Resides with: Other ([facility]) Significant Other/Family: Out of area Natural Supports: daughter and son in law; Latasha and Luis Bates Employment Status: Retired Instrumental Activities of Daily Living (ADLs): Requires support with Dishes/food prep, Tax Credit Leasing Consultant, Groceries, Heat/Utilities, Laundry and Transportation Medications Medication Management: Issues/Barriers with Instructions/Directions Physical Functioning/Mobility Assistive Device: 4WW, FWW Advance Directives Advance Directives: Do you have an Advance Directive: Y 02/26/22 10:17 AD On File at [facility]: Y 02/26/22 10:17 Date Asked 09/26/23 09/26/23 11:32 AD Date Reviewed COLST On File at [facility] COLST Date Scanned Code Status Resuscitation Status DNR/DNI Insurance Coverage/Financial Issues Insurance: [facility]. /BS. Care Team Visit Care Team Role Provider Type Riccardo Duque Primary Care Provider NON-[facility] STAFF PHYSICIAN Kenji Lee MD Other Providers [facility] STAFF PHYSICIAN [facility] Other Providers OTHER Mitul Johnson MD Emergency Provider [facility] STAFF PHYSICIAN Bhavesh Durham MD Admit Provider [facility] STAFF PHYSICIAN Attending Provider Discharge Potential Discharge Needs: PT Evaluation and PCP F/U Appt Anticipated Barriers to Discharge: Medical Status (ability to ambulate) Patient/Family Education Needs: Review discharge instructions, discuss Ask Me Three Transportation: [facility] RCT Transportation: Wheel chair van Plan: Darryl's discharge plan is unclear at this time; anticipate he will return to the [facility] when medically cleared with new orders for HH PT, if he is able to regain ambulatory function. He will likely transport via [facility] w/c van, coordinated by CM. He will follow up with his PCP and discharge plan of care. CM will continue to follow. PFSH All Active Problems (Updated 09/27/23 @ 05:29 by Kenji Lee MD) Painful total knee replacement, right (Acute) Periprosthetic fracture of shaft of femur (Acute) Discharge planning issues (Acute) Ambulatory dysfunction (Acute) Acute pain of right lower extremity (Acute) Inability to walk (Acute) Cervical myelopathy (Acute) Right leg weakness (Acute) DNR (do not resuscitate) (Acute) Plantar wart, right foot (Acute) Neuropathy, idiopathic (Acute) Localized edema (Acute) bi-lateral ankle edema Venous insufficiency of both lower extremities (Acute) with chronic stasis changes Nail dystrophy (Acute) Imbalance (Acute) Lumbar stenosis (Acute) Irregular heart beat (Acute) Medical History Hyponatremia Recurrent falls History of GI diverticular bleed Afib Abdominal pain, suprapubic Dizziness 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 f/u with Dr. Roger @ [facility] and is aware he is having cataract Obesity History of neck pain Stasis dermatitis Seborrheic keratosis Adenomatous colon polyp Pain in left shoulder Knee pain, left Actinic keratosis Insomnia BPH (benign prostatic hyperplasia) History of excessive sweating HTN (hypertension) Achalasia GERD (gastroesophageal reflux disease) Depression ASCVD (arteriosclerotic cardiovascular disease) angioplasty 1993 Surgical History History of total right knee replacement (TKR) S/P PTCA (percutaneous transluminal coronary angioplasty) History of cervical discectomy H/O laminectomy S/P carpal tunnel release S/P tendon repair EGD - [facility] (12/29/16) Colonoscopy - [facility] (12/29/16) Family History Father Prostate cancer Hypertension Stroke Mother Hypertension Maternal Grandmother Stomach cancer Social History Smoking/Tobacco Use Status: Former Tobacco Use Quit Date: 02/21/85 Smoking risk assessment performed?: Yes Alcohol Intake: current Alcohol Intake frequency: a few times a month Alcohol type: beer Details: <1 DRINK PER DAY OF 06-05-20; Drug use: Never Substance use type: does not use Household members: none Housing: house Number of Children: 2 current occupation: Retired What is your relationship status?: Panel score (0-1 are the most socially isolated patients): 0 Do you feel safe at home: Yes Additional Social history: lives alone SDOH(Care Management) Screening Will the Patient Participate in the Screening?: Yes Do you worry about having a steady place to live?: yes Problems where you live: no known problems In the past 12 months, have you had to go without electric, gas, oil or water in your home?: no Have you or anyone in your house had to go without enough food to eat?: no Has lack of transportation kept you from medical appointments or from doing things needed for daily living?: no Has anyone in your support network made you feel unsafe for any reason?: no Health Related Social Needs Health related social needs: housing instability, housed, with risk of homelessness(Z59.811)
[2023-09-27 11:33] VITALS: BP 118/60; PULSE 50; RESP 16; TEMP 36; O2SAT 97
[2023-09-27] MEDS: Polyethylene Glycol 3350 17 GM PACKET PO (11:40)
--- NOTE | 2023-09-27 12:45 | W.PM.PROGNOT ---
Date of Service Date of service: 09/27/23 Time of Service: 12:45 Assessment and Plan Assessment and plan (1) Acute pain of right lower extremity: Status: Acute Assessment and plan: Imaging showing subacute fracture of the right knee with hardware in place and a small effusion -Orthopedic surgery consulted -CT reviewed and compared to previous images from [facility] with concern for loose femoral component that might not be obvious -Recommendations for -Straight knee brace -WBAT -f/u in office in 2-3 weeks - no recommendation for MRI Pain management with -Scheduled Tylenol - Tramadol - patient reports is helping significantly -Lidocaine patch - Celebrex 100 mg PO BID intitated (2) Ambulatory dysfunction: Status: Acute Assessment and plan: Physical therapy consult Administered pain medicine prior to ambulation, patient to wear right knee immobilizer to stand and ambulate (3) Discharge planning issues: Status: Acute Assessment and plan: PT VS STR Discussed with Dr. Durham Subjective Subjective Patient reports: no new complaints, pain is less (Tramadol is helping significantly), tolerating a regular diet, voiding w/o difficulty, bowel movement and afebrile; denies flatus, diarrhea, nausea or vomiting Exam Narrative Exam Narrative: Constitutional The patient is sitting in a chair, without acute distress HENMT: Facial structures with normal appearance Neuro: Alert and oriented to self, person, place time and situation. No neurological focal deficit Chest:Chest is symmetrical and normal appearance Resp: Normal respiratory pattern, speaks in full sentences, unlabored breathing, lungs clear bilaterally Cardio: regular rhythm, S1, S2, no murmur, capillary refill<3 sec. DP/PT pulses present GI: Abdomen is not distended, soft and non tender, bowel sounds are present : No costovertebral angle tenderness, no bladder distension Back/spine/Pelvis: No back tenderness, normal alignment Integumentary: No skin lesions or rash Extremities: Pain to right knee radiating to right groin on knee flexion, discomfort described from knee to groin medially and laterally like a U Psych: RASS 0, congruent- anxious mood and normal affect. Objective Last Vital Signs Temp 36.0 C L 09/27/23 11:33 Pulse 50 L 09/27/23 11:33 Resp 16 09/27/23 11:33 BP 118/60 09/27/23 11:33 Pulse Ox 97 09/27/23 11:33 Laboratory Results - last 24 hr 09/26/23 09/27/23 12:45 06:22 WBC 7.63 7.75 RBC 4.54 4.29 L Hgb 13.8 13.1 L Hct 41.6 38.8 L MCV 92 90 MCH 30.4 30.5 MCHC 33.2 33.8 RDW 14.9 H 14.8 H Plt Count 174 147 MPV 9.8 10.7 Immature Gran % 0.5 0.5 Neutrophils % 83.9 71.7 Lymphocytes % 8.8 19.1 Monocytes % 6.8 8.3 Eosinophils % 0.0 0.1 Basophils % 0.0 0.3 Nucleated RBC % 0.0 0.0 Absolute Neutrophils 6.40 5.56 Absolute Lymphocytes 0.67 L 1.48 Absolute Monocytes 0.52 0.64 Absolute Eosinophils 0.00 0.01 Absolute Basophils 0.00 0.02 Sodium 133 L 133 L Potassium 4.6 4.4 Chloride 97 L 98 Carbon Dioxide 28.7 26.9 Anion Gap 7.3 8.1 BUN 34 H 43 H Creatinine 1.3 1.3 Est GFR (CKD-EPI 2020) 54.17 54.17 Glucose 112 H 106 Calcium 9.3 8.8 Total Bilirubin 0.71 AST 11 L ALT 11 L Alkaline Phosphatase 93 Total Protein 7.6 Albumin 3.5 Time Spent with Patient Time Spent with Patient: 35-49 minutes Time was spent: preparing to see the patient(eg.review tests), obtaining and/or reviewing separately otained hiistory, referring, communicating with other health cardiac care unit nurse, indepentently interpreting results, counseling the patient and care coordination
[2023-09-27 15:08] VITALS: BP 109/63; PULSE 63; RESP 18; TEMP 35.7; O2SAT 98
--- NOTE | 2023-09-27 15:15 | PT.INTREAT ---
PT Notes Visit Reasons: Right Knee effusion, R Knee Subacute Fracture, AMB Date: 09/27/23 SUBJECTIVE: Anxious to understand what is causing his pain. He hates the leg immobilizer, feel it limits his potential more. Stedy lift is helpful for transfers, not confident to transfer on his own due to legs potentially giving way. OBJECTIVE:? Functional ability: Sit to stand: Min x 2, RW Stand: RW, CG x 2 x 5 min Stand to sit: CGA x 2 Transfers: Stedy lift Therapeutic activities, [id number]: Activities to improve dynamic activities designed to improve specific functional tasks STS Min A x 2, Stand to sit CGX2, Stand CGA x 2 x 5 min, weight shift x 2 min, R mini april x 10, R hip abd x 5 to assist with functional progress toward ambulation and transfer Therapeutic procedures ([id number]): Instruction in therapeutic exercises to develop strength and endurance, range of motion and flexibility. ?Seated: LAQ x 20 Adduction squeeze 20 sec x 5 Clam shell glute squeeze x 20 R HS drag heel slide x 20 HR x 20 Toe rasie x 20 Edge of seat R SLR, focus of quad x 10 march x 20 Mini seated bridge in chair x 10 Assessment: Pain does appear to be generating from the referring up to the hip, more so when taking pressure off the knee. Unable to ambulate. Pain, motor control and anxiety all contributing factors. Awaiting consult w [facility] [place] for differential diagnosis input. Plan: Plan to see patient 1-2x/day x 7 days. Care may be provided by LITHOGRAPHING MACHINE OPERATOR and POC has been discussed with LITHOGRAPHING MACHINE OPERATOR. Treatment will consist of the following: Therapeutic Activities: for transfer training and safety with functional tasks Therapeutic Exercises: to improve strength and activity tolerance Gait Training: gait and stair training with use of knee immobilizer and assistive device Neuromuscular Re-education: balance retraining DISCHARGE RECOMMENDATIONS: Home with HH PT vs SNF for continued progress toward goals TREATMENT CODE/TIME: [id number] Total Treatment Time: 30 min CC:
[2023-09-27] MEDS: Carbidopa 25/Levodopa 100 TAB PO (19:48)
[2023-09-27] MEDS: Melatonin 3 MG TAB PO (19:48)
[2023-09-27] MEDS: hydrOXYzine HCL 25 MG TAB 50 MG PO (19:48)
[2023-09-27] MEDS: Finasteride 5 MG TAB PO (19:48)
[2023-09-27] MEDS: Simvastatin 40 MG TAB PO (19:48)
[2023-09-27 19:52] VITALS: BP 107/71; PULSE 66; RESP 18; TEMP 36.4; O2SAT 96
[2023-09-27] MEDS: Propranolol 10 MG TAB PO (19:55)
--- NOTE | 2023-09-27 21:00 | PGE_ITS ---
Date of Service Date of service: 09/27/23 Time of Service: 16:30 Assessment and Plan Assessment and plan (1) Periprosthetic fracture of shaft of femur: Status: Acute (2) Painful total knee replacement, right: Status: Acute (3) Acute pain of right lower extremity: Status: Acute (4) Ambulatory dysfunction: Status: Acute (5) Right leg weakness: Status: Acute Assessment and plan: Daniel is an 83-year-old male who has a complicated problem. He has had the acute onset of worsening weakness, pain with weightbearing and dysfunction about the right leg in the setting of a previous periprosthetic femoral shaft fracture above a total knee replacement. This is a very complex problem. I once again reviewed the CT scan and the x-rays. I discussed the case with the trauma surgeon at [facility]. I also reviewed the history once again with Daniel in detail today. I really cannot find anything acutely concerning. I do not see anything on x-ray nor CT scan or exam which would suggest that there is something that needs to be fixed or addressed with any other invasive means. I do worry that he has potentially had some ongoing loosening about the right knee which may have been causing some of his disability prior to his falls or maybe even causing the falls themselves. But his story does not totally fit that. Additionally, it would be extremely unlikely there to be acute loosening of the right knee, particularly after the trauma that he had back in April while it is always possible and that is also extremely unlikely and there is no sign of that with imaging that we have. Additionally, there is no sign that the fracture has moved or shifted. There is no change in positioning of the screws and no extension of her fracture and there is callus formation. These x-rays, when compared to the previous ones at [facility], look unchanged. Another potential option is simply a soft tissue response. In the position that he was then, flexing the knee from a standing position is possible that there was some translation of the tibia allowing the IT band and popliteus tendon to impinge itself between the femur and the tibia leading to an acute inflammatory response about the soft tissues. None this does not explain all of his symptoms but it would fit with a loud popping sensation and the acute pain afterwards. However, this should get better with time. I do not see any other signs of significant trauma and therefore I think we have to move forward with this diagnosis as the working plan. Given there is no defect about the knee we can disregard the knee immobilizer and discontinue his use. I want him to continue to work hard with physical therapy and I do not think he is hurting anything by trying to push forward with physical therapy. Once again, if he is unable to make any progress then we will have to reevaluate imaging studies but I do not see any sign of concern or need for further intervention at this time. I would recommend a course of steroids to hopefully decrease what ever inflammatory response is ongoing. Hopefully, things will improve and then he can follow-up with the team at [facility] in another few weeks as an outpatient. Subjective Subjective Interval history since last seen: Daniel reports some slight improvement with this pain and stability of the legs with the use of his shoes with custom orthotics. However, he still continues to report pain with weightbearing primarily. He does feel the pain moves around depending on how he is moving. He really is unable to identify 1 location where pain is the worst. He does seem to indicate that it is down in the leg but then quickly mentions that his groin and then butt and then back. He denies numbness or tingling down the leg. He feels somewhat unstable as well as pain. He does seem to grab the lateral side of his leg. Once again I reviewed with him the initial injury which he said he was standing supine and then flexing the right knee and when he went to extend it and place it back down the ground he felt a painful pop which then had difficulty with weightbearing. He does sometimes vacillate between the present and the past prior to his injury mentioning that he was having some difficulties with the right knee prior to the injury in April with at least 2 preceding falls, increasing imbalance and unsteadiness. Overall, no significant changes from his examination and interview yesterday. Knee immobilizer was tried by physical therapy but he did not like the the knee immobilizer and gave some reported poor effort with therapy intervention. I had a long discussion about his case with Dr. Dickens at [facility], the surgeon who fixed the right femur. He reviewed the CT scan and the x-rays. I discussed with him my findings on examination and evaluation and we reviewed the case over the phone. Exam Narrative Exam Narrative: Sitting up in the chair. No acute distress. Alert and oriented x 3. Evaluation of the right lower extremity shows once again no significant swel ling. There is no significant ecchymosis. There is no notable knee effusion. He generally jumps and speaks gibberish with most palpation. Most of the time it seems to be somewhat playful in nature but what I do seem to palpate the lateral side of the knee and the distal thigh he does seem to grimace. He also has some reported pain with palpation of the medial aspect of the distal thigh and knee. However, the examination is really challenging given his globally positive response to all manipulations and palpations. Nevertheless, he does have pain, reported at least, the palpation about the greater trochanter and the IT band. He also reports this about his buttock and over the SI joint on the right side and to lesser extent within the midline of the spine. There is no step-off. Once again he only really seems to grimace with manipulation of the soft tissues laterally. When I apply some bending force through the femur he does not seem to react very much and therefore I do not know if this represents a femur issue. And testing of the knee, better exam today than yesterday, he has nearly full extension may be lacking up to 5 degrees. However, he has good strength to extension. There is no defect of the extensor mechanism. He does have some laxity with the knee, maybe 5 to 6 mm of valgus stress and about 7 to 8 mm with varus stress. However, there are firm endpoints. He does not seem to be terribly painful with this although he is sensitive to the noise it makes. There is some laxity in flexion and I am able to sublux the tibia forward anteriorly in a flexed position with the leg dangling. Rotationally loading the tibia and moving the knee seems to increase pain as well. Objective Last Vital Signs Temp 36.4 C L 09/27/23 19:52 Pulse 66 09/27/23 19:52 Resp 18 09/27/23 19:52 BP 107/71 09/27/23 19:52 Pulse Ox 96 09/27/23 19:52 Laboratory Results - last 24 hr 09/27/23 06:22 WBC 7.75 RBC 4.29 L Hgb 13.1 L Hct 38.8 L MCV 90 MCH 30.5 MCHC 33.8 RDW 14.8 H Plt Count 147 MPV 10.7 Immature Gran % 0.5 Neutrophils % 71.7 Lymphocytes % 19.1 Monocytes % 8.3 Eosinophils % 0.1 Basophils % 0.3 Nucleated RBC % 0.0 Absolute Neutrophils 5.56 Absolute Lymphocytes 1.48 Absolute Monocytes 0.64 Absolute Eosinophils 0.01 Absolute Basophils 0.02 Sodium 133 L Potassium 4.4 Chloride 98 Carbon Dioxide 26.9 Anion Gap 8.1 BUN 43 H Creatinine 1.3 Est GFR (CKD-EPI 2020) 54.17 Glucose 106 Calcium 8.8 Time Spent with Patient Time Spent with Patient: >50 minutes Time was spent: preparing to see the patient(eg.review tests), obtaining and/or reviewing separately otained hiistory, referring, communicating with other health regular senior care provider, indepentently interpreting results, counseling the patient and care coordination
[2023-09-27 23:26] VITALS: BP 116/68; PULSE 54; RESP 18; TEMP 36.4; O2SAT 96
[2023-09-28 03:36] VITALS: BP 123/68; PULSE 55; RESP 18; TEMP 36.3; O2SAT 95
[2023-09-28] MEDS: Omeprazole 20 MG CAPCR 40 MG PO ×2 (06:34→20:08)
[2023-09-28] MEDS: traMADol 50 MG TAB 25 MG PO ×3 (06:34→20:08)
[2023-09-28] MEDS: Polyethylene Glycol 3350 17 GM PACKET PO (06:34)
[2023-09-28 07:02] LABS: Abs Immature Grans 0.03 10^3/uL (0.0-0.06); Absolute Basophil Count 0.02 10^3/uL (0.0-0.2); Absolute Eosinophil Count 0.12 10^3/uL (0.0-0.7); Absolute Lymphocyte Count 2.22 10^3/uL (1.2-3.4); Absolute Monocyte Count 0.57 10^3/uL (0.1-0.8); Absolute Neutrophil Count 4.54 10^3/uL (1.2-6.7); Basophils % 0.3 %; Eosinophils % 1.6 %; HCT 40.8 % (40.0-50.0); HGB 13.7 g/dL (13.5-17.5); Immature Grans % 0.4 %; Lymphocytes % 29.6 %; MCH 30.8 pg (27.0-33.0); MCHC 33.6 % (32.0-36.0); MCV 92 fL (80-95); MPV 9.9 fL (8.0-11.0); Monocytes % 7.6 %; Neutrophils % 60.5 %; Platelet Count 141 10^3/uL (130-400); RBC 4.45 10^6/uL (4.36-5.78); RDW 14.9 % (11.8-14.1); RDW-SD 50.2 fL
[2023-09-28 07:12] VITALS: BP 118/68; PULSE 48; RESP 16; TEMP 36.2; O2SAT 98
[2023-09-28 07:57] LABS: Anion Gap 9.1 mmol/L (3-11); BUN 48 mg/dL (7-18); CO2 26.9 mmol/L (21.0-32.0); CREATININE 1.5 mg/dL (0.70-1.30); Calcium 9.1 mg/dL (8.5-10.1); Chloride 96 mmol/L (98-107); Estimated GFR 45.62 (mL/min/1.73m2); Glucose 92 mg/dL (74-106); Potassium 4.8 mmol/L (3.5-5.1); Sodium 132 mmol/L (136-145)
[2023-09-28 07:59] LABS: C-Reactive Protein < 0.50 mg/dL (<or=0.5)
[2023-09-28] MEDS: Losartan 50 MG TAB PO (08:00)
[2023-09-28] MEDS: Senna TAB 2 TAB PO (08:00)
[2023-09-28] MEDS: Acetaminophen 500 MG TAB 1000 MG PO ×3 (08:00→20:08)
[2023-09-28] MEDS: Apixaban 5 MG TAB PO ×2 (08:00→20:09)
[2023-09-28] MEDS: Celecoxib 100 MG CAP PO ×2 (08:00→20:08)
[2023-09-28] MEDS: Spironolactone 25 MG TAB PO (08:01)
[2023-09-28] MEDS: Docusate Sodium 100 MG CAP PO ×2 (08:01→20:08)
[2023-09-28] MEDS: Diclofenac 1% Gel 100 GM TUBE TP ×2 (08:01→11:59)
[2023-09-28] MEDS: Furosemide 40 MG TAB PO (08:01)
[2023-09-28] MEDS: Cholecalciferol (Vitamin D3) 1,000 UNIT TAB 1000 UNITS PO (08:01)
[2023-09-28] MEDS: Folic Acid 1 MG TAB PO (08:01)
[2023-09-28 11:18] VITALS: BP 103/66; PULSE 50; RESP 16; TEMP 35.4; O2SAT 98
--- NOTE | 2023-09-28 12:07 | PT.INTREAT ---
PT Notes Visit Reasons: Right Knee effusion, R Knee Subacute Fracture, AMB Date: 09/28/23 SUBJECTIVE: Daniel remains anxious to understand what is causing his pain. He reports severe anxiety around weight bearing and walking. States that he has not trusted his right knee for a long time, and is extremely fearful of falling. OBJECTIVE:? Functional ability: Sit to stand: Mod A x 1 initially. Added pillow to recliner chair to elevate, and able to stand with CGA. Stand: RW, CG x 1, 3 minutes x 3 Stand to sit: CGA x 1 Transfers: Stedy lift Therapeutic activities, [id number]: Activities to improve dynamic activities designed to improve specific functional tasks sit-stand x 5, with improving independence with repetition standing weight shift 10x standing march, limited range, but able to fully weight bear unilaterally without increase in pain at FWW, 10x attempted ambulation, but patient becomes anxious and requests to sit, with poorly controlled descent static standing 3 minutes x 3, with cues for bilat weight bearing, trusting leg. He does report increasing LBP, radiating into groin, and on last repetition reports my right knee is numb. Manual Therapy (20716): ROM to right LE within painfree ranges manual stretching to gluteals and piriformis TrP release to gluteals on the right for pain management Assessment: Remains unable to ambulate, although demonstrates improved tolerance to weight bearing today. He remains extremely anxious about ambulation, and responds very well to encouragement. He is struggling to progress his independence with ambulation, and may require SNF stay prior to returning to [facility]. Plan: Plan to see patient 1-2x/day x 7 days. Care may be provided by SENIOR CORE JAVA DEVELOPER and POC has been discussed with SENIOR CORE JAVA DEVELOPER. Treatment will consist of the following: Therapeutic Activities: for transfer training and safety with functional tasks Therapeutic Exercises: to improve strength and activity tolerance Gait Training: gait and stair training. D/C knee immobilizer per ortho Neuromuscular Re-education: balance retraining DISCHARGE RECOMMENDATIONS: Home with HH PT vs SNF for continued progress toward goals TREATMENT CODE/TIME: 6782-1821 (81704x1, [id number]) Total Treatment Time: 40 min CC:
--- NOTE | 2023-09-28 13:52 | PHA.REVIEW2 ---
Pharmacy Admission Review Admission Clinical Review Admission Pharmacy Review: Painful total knee replacement, right (Acute) Periprosthetic fracture of shaft of femur (Acute) Discharge planning issues (Acute) Ambulatory dysfunction (Acute) Acute pain of right lower extremity (Acute) Right leg weakness (Acute) hydromorphone HCl (From Dilaudid) Allergy (Intermediate, Verified 09/25/23 13:35) Other (See Comment) morphine Allergy (Intermediate, Verified 09/25/23 13:35) Itching vancomycin Allergy (Intermediate, Verified 09/25/23 13:35) Other (See Comment) acetaminophen (From Vicodin) Allergy (Unknown, Verified 09/25/23 13:35) Other (See Comment) hydrocodone bitartrate (From Vicodin) Allergy (Unknown, Verified 09/25/23 13:35) Other (See Comment) tamsulosin Allergy (Unknown, Verified 09/25/23 13:35) Other (See Comment) gabapentin Adverse Reaction (Intermediate, Verified 09/25/23 13:35) Makes pt. loopy Resuscitation Status DNR/DNI Height 5 ft 10 in Weight 107.048 kg Comments Comments/Follow Ups: Per morning meeting, potential for patient so switch to swing bed status Pharmacy Admission Review Renal Dosing Renal Dosing: BUN 48 mg/dL (7-18) H 09/28/23 06:50 Creatinine 1.5 mg/dL (0.70-1.30) H 09/28/23 06:50 Medications needing adjustments: Reviewed (CrCl 44.91 mL/min) List of meds needing interventions: Patient takes silodosin 8mg at home. Recommended dose for CrCl < 50 is 4mg daily. This has not been brought in yet for the patient (nursing is checking with them). Will discuss with provider if it's brought in from home. Anticoagulation Anticoagulation: Hgb 13.7 g/dL (13.5-17.5) 09/28/23 06:50 Hct 40.8 % (40.0-50.0) 09/28/23 06:50 Plt Count 141 10^3/uL (130-400) 09/28/23 06:50 Creatinine 1.5 mg/dL (0.70-1.30) H 09/28/23 06:50 DVT Prophylaxis: Reviewed (BUN/ SCr increased from 43/1.3) Medications: Apixaban (5mg PO BID) Relevant Labs Relevant Labs: Sodium 132 mmol/L (136-145) L 09/28/23 06:50 Potassium 4.8 mmol/L (3.5-5.1) 09/28/23 06:50 Chloride 96 mmol/L (98-107) L 09/28/23 06:50 Magnesium 2.0 mg/dL (1.8-2.4) 09/28/23 06:50 C-Reactive Protein < 0.50 mg/dL (<or=0.5) 09/28/23 06:50 Electrolytes, C-Reactive P, ESR: Reviewed (Na 132) Cardiac Review BP, HR, EF%: Reviewed (BP WNL, HR 50) QTc Review QTc: Reviewed (No EKG on file) IV to PO Switch IV Medications: Reviewed Home Meds Home Med List reviewed: Reviewed Relevent Home Meds Not ordered & why?: Vitamin B12 Current Meds Current Medication Order Review: Reviewed Pharmacy Antibiotic Review Relevant Labs: Relevant Labs 09/28/23 06:50 C-Reactive Protein < 0.50 Comments Comments/Follow Ups: Per morning meeting, potential for patient so switch to swing bed status
--- NOTE | 2023-09-28 14:59 | PT.INTREAT ---
PT Notes Visit Reasons: Right Knee effusion, R Knee Subacute Fracture, AMB Date: 09/28/23 SUBJECTIVE: Daniel remains anxious to understand what is causing his pain. He reports continued anxiety around weight bearing and walking. States that he has not trusted his right knee for a long time, and is extremely fearful of falling. OBJECTIVE:? Functional ability: Sit to stand: min A - CGA. Stand: RW, CG x 1, 2 minutes x 1 Stand to sit: CGA x 1 Transfers: Stedy lift Therapeutic activities, [id number]: Activities to improve dynamic activities designed to improve specific functional tasks sit-stand x 5, with improving independence with repetition standing weight shift 10x instructed in ambulation, with cues for safety and equipment management, encouraging WBing to RLE. Able to ambulate 6'x4 with FWW, CGA and chair follow. Therapeutic Exercises ([id number]): instructed in seated exercises for improved LE strength and cardiovascular endurance: hip AB/AD 10x seated april 1 minute x 2 LAQ 10x2 ankle pumps 20x SLR in chair, 10x each shoulder flexion 10x Assessment: Able to initiate ambulation for short distances, with need for frequent rest periods. Remains very fearful of the RLE buckling, but responds favorably to encouragement and positive feedback. Anticipate need for SNF stay prior to returning to [facility]. Plan: Plan to see patient 1-2x/day x 7 days. Care may be provided by MATH AND SCIENCES DEPARTMENT CHAIR and POC has been discussed with MATH AND SCIENCES DEPARTMENT CHAIR. Treatment will consist of the following: Therapeutic Activities: for transfer training and safety with functional tasks Therapeutic Exercises: to improve strength and activity tolerance Gait Training: gait and stair training. D/C knee immobilizer per ortho Neuromuscular Re-education: balance retraining DISCHARGE RECOMMENDATIONS: Home with HH PT vs SNF for continued progress toward goals TREATMENT CODE/TIME: [id number] ([id number], [id number]) Total Treatment Time: 35 min Dora Johnson, PT, DPT [facility] CC:
[2023-09-28 15:06] VITALS: BP 108/58; PULSE 60; RESP 16; TEMP 36; O2SAT 98
--- NOTE | 2023-09-28 15:50 | PGE_ITS ---
Date of Service Date of service: 09/28/23 Time of Service: 15:50 Assessment and Plan Assessment and plan (1) Acute pain of right lower extremity: Status: Acute Assessment and plan: Imaging showing subacute fracture of the right knee with hardware in place and a small effusion -Orthopedic surgery consulted -CT reviewed and compared to previous images from [facility] with concern for loose femoral component that might not be obvious -Recommendations for -Straight knee brace -WBAT -f/u in office in 2-3 weeks - no recommendation for MRI Pain management with -Scheduled Tylenol - Tramadol - patient reports is helping significantly -Lidocaine patch - Celebrex 100 mg PO BID intitated (2) Ambulatory dysfunction: Status: Acute Assessment and plan: Physical therapy consult Administered pain medicine prior to ambulation, patient to wear right knee immob ilizer not needed for orthopedic consultation (3) Discharge planning issues: Status: Acute Assessment and plan: Plan for swing level rehabilitation as he is unable to safely return to assisted living Discussed with Dr. Durham Subjective Subjective Patient reports: no new complaints, still having pain, tolerating liquids well, tolerating a regular diet and afebrile; denies shortness of breath Exam Narrative Exam Narrative: Well-appearing male younger than stated age no acute distress head is atraumatic normocephalic eyes nonicteric noninjected EOMs intact facial features symmetrical oral mucosas moist neurologic he is awake alert oriented no focal deficit. Cardiovascular regular rate and rhythm his respirations even unlabored abdomen soft round nontender positive bowel sounds moves all extremities with no peripheral edema. Skin with no rashes or lesions Objective Last Vital Signs Temp 36.0 C L 09/28/23 15:06 Pulse 60 09/28/23 15:06 Resp 16 09/28/23 15:06 BP 108/58 L 09/28/23 15:06 Pulse Ox 98 09/28/23 15:06 Laboratory Results - last 24 hr 09/28/23 06:50 WBC 7.50 RBC 4.45 Hgb 13.7 Hct 40.8 MCV 92 MCH 30.8 MCHC 33.6 RDW 14.9 H Plt Count 141 MPV 9.9 Immature Gran % 0.4 Neutrophils % 60.5 Lymphocytes % 29.6 Monocytes % 7.6 Eosinophils % 1.6 Basophils % 0.3 Nucleated RBC % 0.0 Absolute Neutrophils 4.54 Absolute Lymphocytes 2.22 Absolute Monocytes 0.57 Absolute Eosinophils 0.12 Absolute Basophils 0.02 Sodium 132 L Potassium 4.8 Chloride 96 L Carbon Dioxide 26.9 Anion Gap 9.1 BUN 48 H Creatinine 1.5 H Est GFR (CKD-EPI 2020) 45.62 Glucose 92 Calcium 9.1 Magnesium 2.0 C-Reactive Protein < 0.50 Time Spent with Patient Time Spent with Patient: 35-49 minutes Time was spent: preparing to see the patient(eg.review tests), ordering medications,tests, procedures and indepentently interpreting results
--- NOTE | 2023-09-28 16:36 | PDOC.CMPRO ---
Date of service: 09/28/23 Time of Service: 16:36 Care Management Progress Note Progress Note Text Progress Note Text: Daniel was sitting in his recliner working on a cross word puzzle when CM met with him. CM provided him with readers, since he left his glasses at [place]. Daniel is currently admitted to [facility] with Right Leg pain and ambulatory dysfunction. He requires additional PT in order to return to the [facility]. CM provided Daniel with a Patient Assistance application as it appears he has reached his limit of covered SNF days. CM email it to his daughter Cata at his request. CM will follow. Discharge Potential Discharge Needs: PT Evaluation Anticipated Barriers to Discharge: None Identified Patient/Family Education Needs: Review discharge instructions, discuss Ask Me Three Transportation: Private vehicle Plan: Anticipate Daniel will transition to SWB level care in order to work with PT until he is able to safely return to the [facility]. He will likely transport via [facility] w[facility] van, coordinated by CM. He will follow up with his PCP and discharge plan of care. CM will continue to follow. SDOH(Care Management) Screening Will the Patient Participate in the Screening?: Yes Do you worry about having a steady place to live?: yes Problems where you live: no known problems In the past 12 months, have you had to go without electric, gas, oil or water in your home?: no Have you or anyone in your house had to go without enough food to eat?: no Has lack of transportation kept you from medical appointments or from doing things needed for daily living?: no Has anyone in your support network made you feel unsafe for any reason?: no Health Related Social Needs Health related social needs: housing instability, housed, with risk of homelessness(Z59.811)
[2023-09-28 19:22] VITALS: BP 120/65; PULSE 57; RESP 17; TEMP 36.8; O2SAT 94
[2023-09-28] MEDS: hydrOXYzine HCL 25 MG TAB 50 MG PO (20:08)
[2023-09-28] MEDS: Melatonin 3 MG TAB PO (20:08)
[2023-09-28] MEDS: Carbidopa 25/Levodopa 100 TAB PO (20:08)
[2023-09-28] MEDS: Simvastatin 40 MG TAB PO (20:08)
[2023-09-28] MEDS: Finasteride 5 MG TAB PO (20:09)
[2023-09-28 23:10] VITALS: BP 111/63; PULSE 57; RESP 17; TEMP 35.7; O2SAT 95
[2023-09-29] MEDS: traMADol 50 MG TAB 25 MG PO ×2 (02:27→10:57)
[2023-09-29 02:48] VITALS: BP 128/80; PULSE 64; RESP 17; TEMP 36; O2SAT 97
[2023-09-29] MEDS: Celecoxib 100 MG CAP PO (07:35)
[2023-09-29] MEDS: Spironolactone 25 MG TAB PO (07:35)
[2023-09-29] MEDS: Folic Acid 1 MG TAB PO (07:35)
[2023-09-29] MEDS: Furosemide 40 MG TAB PO (07:35)
[2023-09-29] MEDS: Docusate Sodium 100 MG CAP PO (07:35)
[2023-09-29] MEDS: Omeprazole 20 MG CAPCR 40 MG PO (07:35)
[2023-09-29] MEDS: Acetaminophen 500 MG TAB 1000 MG PO (07:35)
[2023-09-29] MEDS: Senna TAB 2 TAB PO (07:35)
[2023-09-29] MEDS: Cholecalciferol (Vitamin D3) 1,000 UNIT TAB 1000 UNITS PO (07:35)
[2023-09-29] MEDS: Losartan 50 MG TAB PO (07:35)
[2023-09-29] MEDS: Apixaban 5 MG TAB PO (07:35)
[2023-09-29] MEDS: Polyethylene Glycol 3350 17 GM PACKET PO (07:35)
[2023-09-29 07:48] VITALS: BP 133/59; PULSE 57; RESP 18; TEMP 36.3; O2SAT 95
--- NOTE | 2023-09-29 09:04 | DI.RAD_ITS ---
Exam(s) XR KNEE RT 2V AP,LAT XR FEMUR RT EXAM: XR FEMUR RT CLINICAL HISTORY: f/u continued pain RLE. TECHNIQUE: 2D digital imaging was performed. AP and lateral views. COMPARISON: CR,XR XR FEMUR RT from 09/25/2023 CR XR KNEE RT 2V AP,LAT from 09/29/2023 FINDINGS: Stable alignment of intramedullary aundrea and femoral fracture. Stable appearance of total knee prosthe sis. IMPRESSION: Stable fracture and hardware alignment. DATA REPOSITORY: RADIATION DOSE DELIVERED:
--- NOTE | 2023-09-29 10:18 | PGE_ITS ---
Date of Service Date of service: 09/29/23 Time of Service: 10:18 Assessment and Plan Assessment and plan (1) Acute pain of right lower extremity: Status: Acute Assessment and plan: Imaging showing subacute fracture of the right knee with hardware in place and a small effusion -Orthopedic surgery consulted -CT reviewed and compared to previous images from [facility] with concern for loose femoral component that might not be obvious -Recommendations for -Straight knee brace -WBAT -f/u in office in 2-3 weeks - no recommendation for MRI Pain management with -Scheduled Tylenol - Tramadol - patient reports is helping significantly -Lidocaine patch - Celebrex 100 mg PO BID intitated (2) Ambulatory dysfunction: Status: Acute Assessment and plan: Physical therapy consult Administered pain medicine prior to ambulation, patient to wear right knee immob ilizer not needed for orthopedic consultation (3) Hyponatremia: Assessment and plan: Na 132 on 09/27 , BMP ordered and pending Water restriction 1000ml/day (4) Discharge planning issues: Status: Acute Assessment and plan: Plan for swing level rehabilitation as he is unable to safely return to assisted living Discussed with Dr. Durham Exam Narrative Exam Narrative: Constitutional The patient is lying in bed without acute distress HENMT: Facial structures with normal appearance Neuro:alert and oriented to self, person, place time and situation. No neurological focal deficit, Chest:Chest is symmetrical and normal appearance Resp: Normal respiratory pattern, speaks in full sentences, unlabored breathing, clear lung bilaterally Cardio: regular rhythm, S1, S2, no murmur, capillary refill<3 sec., bilateral radial and dorsalis pedis pulses are positive,positive right popliteal pulse GI: Abdomen is not distended, soft and non tender, bowel sounds are present : Negative Costovertebral angle tenderness, no bladder distension Back/spine/Pelvis: No back tenderness, normal alignment Integumentary: No skin lesions or rash Extremities: Pain to right knee irradiating to right groin on knee flexion, discomfort localized to knee when immobile Psych: RASS 0, congruent- anxious mood and normal affect. Objective Last Vital Signs Temp 36.0 C L 09/29/23 02:48 Pulse 64 09/29/23 02:48 Resp 17 09/29/23 02:48 BP 128/80 09/29/23 02:48 Pulse Ox 97 09/29/23 02:48
--- NOTE | 2023-09-29 10:35 | PDOC.CMPRO ---
Date of service: 09/29/23 Time of Service: 10:35 Care Management Progress Note Progress Note Text Progress Note Text: Daniel will be transitioned to Swing bed I status today for continued PT. He has used all of his Medicare days at other organizations so will be in self-pay status. SDOH(Care Management) Screening Will the Patient Participate in the Screening?: Yes Do you worry about having a steady place to live?: yes Problems where you live: no known problems In the past 12 months, have you had to go without electric, gas, oil or water in your home?: no Have you or anyone in your house had to go without enough food to eat?: no Has lack of transportation kept you from medical appointments or from doing things needed for daily living?: no Has anyone in your support network made you feel unsafe for any reason?: no Health Related Social Needs Health related social needs: housing instability, housed, with risk of homelessness(Z59.366)
[2023-09-29 11:43] LABS: Anion Gap 7.3 mmol/L (3-11); BUN 45 mg/dL (7-18); CO2 28.7 mmol/L (21.0-32.0); CREATININE 1.4 mg/dL (0.70-1.30); Calcium 9.1 mg/dL (8.5-10.1); Chloride 95 mmol/L (98-107); Estimated GFR 49.56 (mL/min/1.73m2); Glucose 81 mg/dL (74-106); Potassium 4.9 mmol/L (3.5-5.1); Sodium 131 mmol/L (136-145)
--- NOTE | 2023-09-29 12:09 | INDS_ITS ---
PT Notes Visit Reasons: Right Knee effusion, R Knee Subacute Fracture, AMB Inpatient Physical Therapy Discharge Summary Dates: September 29, 2023 Dates of Service: 09/26/2023 - 09/29/2023 Pt Profile/ admitting diagnosis: Mr. Beard is an 83 year-old man with h/o right TKA in 2013, right femur fx s/p IMN May 2023, HTN, HLD, heart disease s/p GA, aortic stenosis, paroxysmal atrial fibrillation on apixaban, prior ETOH abuse, BPH, GERD, depression, RLS, insomnia, and OA. He presented to the ED yesterday with acute onset RLE pain that began after performing standing leg exercises. He has a long history of degenerative issues of the spine. Underwent L-spine surgery in 1995 - per notes L2-3 and L4-5 laminectomies - for falls, difficulty walking, and right leg weakness. He underwent c-spine surgery in Jan [address] Slade - C3-4 discectomy, C6 corpectomy, and C5-7 fusion - for neck and bilateral shoulder pain. Finally, he underwent L3-4 laminectomy/facetectomy in 2017, again with Dr. Slade for hip pain which resolved following the surgery. Social History/Home Situation: Darryl currently resides at [facility], where he ambulates independently with FWW. He had been working with HH PT regularly. Equipment Owned/DME: 4WW, FWW SUBJECTIVE: I just don't trust that knee. When the pain comes on I can't stand on it. OBJECTIVE: Pain: Denies pain at rest; reports shooting pain from knee to groin laterally to low back on the right side during weightbearing tasks ROM: Right LE: Hip flexion 100 degrees; hip Abduction 15 degrees; knee 0 to 118 degrees, Ankle WNL STRENGTH: B UE: 5 / 5 L LE: 5/5 R LE: Hip and knee 3+/ 5 ;ankle 4 / 5 BED MOBILITY/TRANSFERS: Supine-sit supervision Sit-supine : min A for RLE Sit-stand CGA at FWW Stand-sit CGA with cues for hand placement Bed-Chair stand assist lift Chair-bed stand assist lift GAIT: Ambulates 6 feet in straight line with FWW min assist with wheelchair follow closely; step to pattern and increased weight bearing through upper extremities ( on 09/28/23) On this date pt only able to advance one step then R knee instability during weight bearing which pt declined to attempt further steps. BALANCE: Static sitting Normal Dynamic sitting: Good + Static standing: Fair with BUE support for 5 mins x 3 Dynamic standing: Fair - with BUE support SPECIAL TESTS: Mobility Limitations Standardized Measure [facility] AM-PAC 6 clicks Basic Mobility Inpatient Short Form: Raw Score: 10 CMS Score: 76.75% impairment ASSESSMENT: Pt is 83yo male referred with pain in his RLE with imaging inconclusive at this time of loosening hardware in his right knee. He demonstrates continued pain and instability in standing, with significant apprehension with all weight bearing activities. He complains of pain primarily in his right knee with radiating/shooting up to groin area in standing intermittently radiating to his right sided low back, and describes sensation of both legs feeling wobbly. He also notes the pain occurs in seated position when stabilizing with RLE to move his LLE. He has demonstrated ability to ambulate with RW 6' in one session however today he reports increased pain localized to the knee when he attempts to weight shift onto the right to advance his LLE. with one episode of slight knee instability. This increased his fear of his leg giving way and he declined to attempt steps again despite reassurance of 2 assist, gait belt and chair follow. He continues to benefit from PT intervention to maximize mobility and safety. GOALS ( Met / Not Met): 1. supine-sit: supervision [not met] 2. sit-supine: supervision [notmet] 3. sit-stand: supervision[NOT MET] 4. stand-sit: supervision [NOT MET] 4. Able to ambulate 50' with FWW and supervision [NOT MET] DISCHARGE PLAN/RECOMMENDATIONS: continued SNF level of care TREATMENT CODE/TIME: ([id number]) [id number], [id number]
[2023-09-29 12:10] VITALS: BP 129/64; PULSE 62; RESP 20; TEMP 35.7; O2SAT 96
--- NOTE | 2023-09-29 12:32 | DSE_ITS ---
Date of service: 09/29/23 Time of Service: 12:32 DS: Diagnosis Discharge Diagnosis (1) Acute pain of right lower extremity: Status: Acute (2) Ambulatory dysfunction: Status: Acute (3) Hyponatremia: (4) Discharge planning issues: Status: Acute Discharge Plan Disposition Patient Disposition: Swing Bed(Skilled,SB1) Condition: Improving Discharge Details Reason For Visit: Right Knee effusion, R Knee Subacute Fracture, AMB Admit Date/Time: 09/26/23 10:00 Admit Provider: Bhavesh Durham Attending Provider: Bhavesh Durham Primary Care Provider: Riccard[facility] Course Hospital Course: 83-year-old male patient with a past medical history of right lower extremity femoral fracture and knee replacement at [facility] presented on 09/25/2023 to the ED at [facility] for evaluation of right leg pain. The patient reported an acute onset on the day of presentation while completing physical therapy exercises and range of motion of his right lower extremity. The patient reported hearing a ?pop? and experiencing acute onset of pain behind his right knee. Pain was described pain as severe and radiating up to his lower back without associated numbness or tingling. The patient complained of being unable to walk and denied falls. X-ray of the right lower ext completed in the ED was concerning for possible lucency and a small effusion in the right knee. [facility] orthopedic services compared the previous and current images without major significant differences seen but due to symptoms recommendation for CT scan was issued. CT again reviewed by orthopedic team at [facility] without evidence of acute fracture or change in status. In the ED the patient reported feeling better after receiving medication for sciatica but still unable to ambulate. The patient kept overnight for evaluation with physical therapy the patient was still unable to ambulate with physical therapy the next day. The hospitalist admitted the patient to the medical surgical floor for evaluation and management of right lower extremity pain, right ?knee effusion, and subacute fracture of the right distal femur shaft with hardware in place. The patient confirmed that he is a DNR/DNI. During the stay, orthopedic surgery was consulted with initial recommendation for knee immobilizer for knee stabilization during mobilization with thought of shifted or moved part of his right leg hardware that is not yet visible on imaging without ?need for any urgent. The patient continued to see physical therapy. Celebrex was initiated, s/p discussion with Dr. Lee, as well as Tramadol allowing for pain control, No evidence of bleeding seen or reported. patient continue to receive his home medicine as per completed medicine reconciliation. Dr. Lee further discussed the case with the trauma surgeon at [facility] and reviewed the history once again the patient in detail and recommended a course of steroids to assist in managing the inflammation. Further discussion/ notes ?mentioned the unlikeness of acute loosening of the right knee s/p the trauma from April 2023 but considering this as a cause of potential falls. Also considering impingement of the IT band and popliteus tendon during knee flexion and translation of the tibia causing symptoms an acute inflammatory response about the soft tissues. The [facility]; unable to bear weight w/o pain or ambulate. The patient will be transitioned to [facility] for ambulatory dysfunction, right knee pain, subacute fracture of the right femur with hardware in place for rehabilitation. Home Meds and New Rx's Prescriptions: No Action (DME) walker Misc See Rx Instructions .ROUTE .MEDSUPPLY Qty: 1 Rx Instructions: As directed acetaminophen 650 mg tablet extended release 1,300 mg PO Q12H omeprazole 40 mg capsule,delayed release(DR/EC) 40 mg PO BID furosemide 40 mg tablet 40 mg PO BID spironolactone 25 mg tablet 25 mg PO DAILY simvastatin 40 mg tablet 40 mg PO DAILY Patient Comments: pt reports every other day not every day silodosin 8 mg capsule 8 mg PO DAILY Rx Instructions: must administer with a meal/food carbidopa-levodopa [Sinemet] 25-100 mg tablet 2 tab PO HS Eliquis 5 mg tablet 5 mg PO BID finasteride 5 mg tablet 5 mg PO HS folic acid 1 mg tablet 1 mg PO DAILY losartan 50 mg tablet 50 mg PO DAILY cyanocobalamin (vitamin B-12) [Vitamin B-12] 1,000 mcg tablet 1,000 mcg PO DAILY propranolol 10 mg tablet 10 mg PO BID melatonin 3 mg tablet 3 mg PO HS hydroxyzine HCl 50 mg tablet 50 mg PO QHS tramadol 25 mg tablet 25 mg PO Q6H PRN cholecalciferol (vitamin D3) 25 mcg (1,000 unit) tablet 25 mcg PO DAILY Discharge Instructions Stand Alone Forms: Nursing Discharge Form Referrals: Rg Dickens [ NON-[facility] STAFF PHYSICIAN] - 10/10/23 2:45 am (Appt for 2:45pm is for X-RAYS. Appt with provider at 3:30pm ) Activity:: Activity as Tolerated Equipment/Supplies:: Walker Diet:: heart healthy Discharge Orders Discharge Orders: Discharge Order (Routine); Ordered 09/29/23 Ordered By: Wendie Sumner Discharge Data Discharge Date/Time-TO BE ENTERED AT DEPARTURE: 09/29/23 13:12 DS: Summary Time Spent with Patient providing and/or coordinating discharge services: Greater than 30 minutes Status at Discharge Functional status at discharge: uses cane/walker Overall status at discharge: patient is progressing back to baseline Mental Status: mental status grossly normal Speech and Movement: speech and movement normal Mood: congruent mood and anxious mood Affect: normal affect Quality:SDOH Health Related Social Needs: Health related social needs risk of homeless Exam Narrative Exam Narrative: Constitutional The patient is sitting in a WC without acute distress, right hip pain during movement and stabilization of opposite leg, increased pain with WB HENMT: Facial structures with normal appearance Neuro:alert and oriented X4. No neurological focal deficit Resp:Clear lung bilaterally Cardio: irregular rhythm, S1, S2, murmur, positive pulses to all 4 ext. GI: Abdomen is not distended, soft and non tender, bowel sounds are present : Negative Costovertebral angle tenderness Back/spine/Pelvis: No back tenderness, tingling or numbness Integumentary: dark-red discoloration to right LE w/o skin integrity impairement Extremities: Flexion and extension of right knee while in WC without pain , WB causes pain Psych: RASS 0, congruent- anxious mood and normal affect. Psych Mental Status: mental status grossly normal Speech and Movement: speech and movement normal Mood: congruent mood and anxious mood Affect: normal affect DS: Data Vitals/I&O Vitals and I&O: Vital Signs Temperature 35.7 C L 09/29/23 12:10 Temperature Source Temporal Artery Scan 09/29/23 12:10 Pulse 62 09/29/23 12:10 Pulse Rhythm Irregular 09/29/23 08:00 Respiratory Rate 20 09/29/23 12:10 Respiratory Effort Normal 09/29/23 08:00 Respiratory Depth Normal 09/29/23 08:00 Respiratory Pattern Normal 09/29/23 08:00 Blood Pressure 129/64 09/29/23 12:10 Blood Pressure Mean 103 09/26/23 06:19 Blood Pressure Position Supine 09/26/23 02:01 Pulse Oximetry 96 09/29/23 12:10 Oxygen Delivery Method Room Air 09/29/23 12:10 Oxygen Flow Rate 0 09/29/23 12:10 Pain Level 0 09/29/23 10:57 Comment manual pulse read 38, retake via palpation for one full minute pulse of 36. RN notified, AP RN 09/27/23 07:20 Intake & Output 09/28/23 09/29/23 09/29/23 23:59 11:59 23:59 Intake Total 240 / 480 500 / 500 Output Total 550 / 1150 Balance -310 / -670 500 / 500 Intake: Oral 240 / 480 500 / 500 Output: Urine 550 / 1150 Other: Urine Color Yellow Urine Appearance Clear Clear Urine Odor Normal None Comment Pt concerned with output and lasix administration (40 mg BID home, 40 mg Q Daily [facility]). [employer] aware. Voided 300 ml post bladder scan. Encouraged to increase fluid intake. RN will continue to monitor. Stool Size Moderate Small Stool Characteristics Formed Soft Brown Brown Voiding Methods Toilet Data Completed and Pending Labs on day of discharge: Labs from last 24 hours 09/29/23 10:50 Sodium 131 L Potassium 4.9 Chloride 95 L Carbon Dioxide 28.7 Anion Gap 7.3 BUN 45 H Creatinine 1.4 H Est GFR (CKD-EPI 2020) 49.56 Glucose 81 Calcium 9.1 PFSH All Active Problems (Updated 09/27/23 @ 05:29 by Kenji Lee MD) Painful total knee replacement, right (Acute) Periprosthetic fracture of shaft of femur (Acute) Discharge planning issues (Acute) Ambulatory dysfunction (Acute) Acute pain of right lower extremity (Acute) Inability to walk (Acute) Cervical myelopathy (Acute) Right leg weakness (Acute) DNR (do not resuscitate) (Acute) Plantar wart, right foot (Acute) Neuropathy, idiopathic (Acute) Localized edema (Acute) bi-lateral ankle edema Venous insufficiency of both lower extremities (Acute) with chronic stasis changes Nail dystrophy (Acute) Imbalance (Acute) Lumbar stenosis (Acute) Irregular heart beat (Acute) Medical History Hyponatremia Recurrent falls History of GI diverticular bleed Afib Abdominal pain, suprapubic Dizziness 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 f/u with Dr. Roger @ [facility] and is aware he is having cataract Obesity History of neck pain Stasis dermatitis Seborrheic keratosis Adenomatous colon polyp Pain in left shoulder Knee pain, left Actinic keratosis Insomnia BPH (benign prostatic hyperplasia) History of excessive sweating HTN (hypertension) Achalasia GERD (gastroesophageal reflux disease) Depression ASCVD (arteriosclerotic cardiovascular disease) angioplasty 1993 Surgical History History of total right knee replacement (TKR) S/P PTCA (percutaneous transluminal coronary angioplasty) History of cervical discectomy H/O laminectomy S/P carpal tunnel release S/P tendon repair EGD - [facility] (12/29/16) Colonoscopy - [facility] (12/29/16) Family History Father Prostate cancer Hypertension Stroke Mother Hypertension Maternal Grandmother Stomach cancer Social History Smoking/Tobacco Use Status: Former Tobacco Use Quit Date: 02/21/85 Smoking risk assessment performed?: Yes Alcohol Intake: current Alcohol Intake frequency: a few times a month Alcohol type: beer Details: <1 DRINK PER DAY OF 06-05-20; Drug use: Never Substance use type: does not use Household members: none Housing: house Number of Children: 2 current occupation: Retired What is your relationship status?: Panel score (0-1 are the most socially isolated patients): 0 Do you feel safe at home: Yes Additional Social history: lives alone Time Spent with Patient Time Spent with Patient: 70-84 minutes4 Time was spent: preparing to see the patient(eg.review tests), obtaining and/or reviewing separately otained hiistory, ordering medications,tests, procedures, referring, communicating with other health career and technology education teacher, indepentently interpreting results, counseling the patient and care coordination
== END 2023-09-29 13:12 | disposition swing bed (61) ==
LOC: ER 09-26 09:26 → MS 09-26 11:32
PROVIDERS: Nurse Practitioner Acute Care; Nurse Practitioner Family; Admitting Provider Family Medicine; Emergency Provider Emergency Medicine; PCP Family Medicine; Visit Provider Family Medicine
DX: S72.391A Other fracture of shaft of right femur, initial encounter for closed fracture (principal); M97.11XA Periprosthetic fracture around internal prosthetic right knee joint, initial encounter; T84.84XA Pain due to internal orthopedic prosthetic devices, implants and grafts, initial encounter; Z96.651 Presence of right artificial knee joint; E87.1 Hypo-osmolality and hyponatremia; R29.6 Repeated falls; X50.3XXA Overexertion from repetitive movements, initial encounter; Z66 Do not resuscitate; I87.2 Venous insufficiency (chronic) (peripheral); G60.9 Hereditary and idiopathic neuropathy, unspecified; G95.89 Other specified diseases of spinal cord; M48.061 Spinal stenosis, lumbar region without neurogenic claudication; I48.91 Unspecified atrial fibrillation; I25.10 Atherosclerotic heart disease of native coronary artery without angina pectoris; G25.81 Restless legs syndrome; I35.0 Nonrheumatic aortic (valve) stenosis; E78.5 Hyperlipidemia, unspecified
CPT/HCPCS: 00123; 36415; 73552; 80048; 80053; 96372; 97110; 97112; 97140; 97162; 97530; 99222; 99233; 99285; 73502; 73560; 73700; 83735; 85025; 86140; 99223; 99232; 99239; G0378; J1100; J1885

== ENCOUNTER 2023-09-29 12:55 | Inpatient (IN) | payer MEDICARE, BC, SELFPAY ==
--- NOTE | 2023-09-29 12:59 | HPE_ITS ---
Date of service: 09/29/23 Time of Service: 12:59 Assessment and Plan Assessment and plan (1) Acute pain of right lower extremity: Status: Acute Assessment and plan: Imaging showing subacute fracture of the right knee with hardware in place and a small effusion -Orthopedic surgery consulted during initial part of the stay -CT reviewed and compared to previous images from [facility] with concern for loose femoral component that might not be obvious -Recommendations for -Straight knee brace- stopped -WBAT -f/u in office in 2-3 weeks - no recommendation for MRI of the RLE -Steroids to assist with inflammatory process -repeat imaging Pain management with -Scheduled Tylenol - Tramadol - patient reports is helping significantly -Lidocaine patch - Celebrex 100 mg PO BID -Steroids and home PPI (2) Ambulatory dysfunction: Status: Acute Assessment and plan: Physical therapy consult Administered pain medicine prior to ambulation with variable effect but allowed for increase mobility (3) Hyponatremia: Assessment and plan: Na 131 today Water restriction 1000ml/day BMP on 09/30 (4) Discharge planning issues: Status: Acute Assessment and plan: Plan for swing level I rehabilitation as he is unable to safely return to assisted living Discussed with Dr. Durham History of Present Illness History of Present Illness Chief Complaint: right lower ext pain, ambulatory dysfunction Narrative: 83-year-old male patient with a past medical history of right lower extremity femoral fracture and knee replacement at [facility] pres ented on 09/25/2023 to the ED at [facility] for evaluation of right leg pain. The patient reported an acute onset on the day of presentation while completing physical therapy exercises and range of motion of his right lower extremity. The patient reported hearing a ?pop? and experiencing acute onset of pain behind his right knee. Pain was described pain as severe and radiating up to his lower back without associated numbness or tingling. The patient complained of being unable to walk and denied falls. X-ray of the right lower ext completed in the ED was concerning for possible lucency and a small effusion in the right knee. [facility] orthopedic services compared the previous and current images without major significant differences seen but due to symptoms recommendation for CT scan was issued. CT again reviewed by orthopedic team at [facility] without evidence of acute fracture or change in status. In the ED the patient reported feeling better after receiving medication for sciatica but still unable to ambulate. The patient kept overnight for evaluation with physical therapy the patient was still unable to ambulate with physical therapy the next day. The hospitalist admitted the patient to the medical surgical floor for evaluation and management of right lower extremity pain, right ?knee effusion, and subacute fracture of the right distal femur shaft with hardware in place. The patient confirmed that he is a DNR/DNI. During the stay, orthopedic surgery was consulted with initial recommendation for knee immobilizer for knee stabilization during mobilization with thought of shifted or moved part of his right leg hardware that is not yet visible on imaging without ?need for any urgent. Celebrex was initiated as well as ultram allowing for pain control without evidence of bleeding. Dr. Lee further discussed the case with the trauma surgeon at [facility] and reviewed the history once again the patient in detail and recommended a course of steroids to assist in managing the inflammation. Further discussion/ notes ?mentioned the unlikeness of acute loosening of the right knee s/p the trauma from April 2023 but considering this as a cause of potential falls. Also considering impingement of the IT band and popliteus tendon during knee flexion and translation of the tibia causing symptoms an acute inflammatory response about the soft tissues. [facility]; unable to bear weight w/o pain or ambulate. The patient will be transitioned to I for ambulatory dysfunction, right knee pain, subacute fracture of the right femur with hardware in place for rehabilitation. Review of Systems Constitutional Constitutional: Denies anorexia, Denies excessive sweating, Denies fatigue, Denies headache(s) and Denies poor appetite Eyes Eyes: Denies loss of vision ENT Ears, Nose, Mouth, and Throat: Denies headache(s) and Reports disequilibrium Cardiovascular Cardiovascular: Denies chest pain and Denies chest pain at rest Respiratory Respiratory: Denies chest congestion and Denies hemoptysis Gastrointestinal Gastrointestinal: Denies melena, Denies hematochezia, Denies coffee ground emesis, Denies constipation, Denies diarrhea, Denies nausea, Denies vomiting and Denies hematemesis Genitourinary Genitourinary: Denies hematuria and Denies difficulty urinating Musculoskeletal Musculoskeletal: Reports arthralgias (right knee) Neurologic Neurologic: Denies abnormal speech, Denies confusion, Denies headache(s), Denies loss of vision and Reports disequilibrium Psychiatric Psychiatric: Denies confusion Endocrine Endocrine: Denies excessive sweating and Denies fatigue Hematologic/Lymphatic Hematologic/Lymphatic: Denies easy bleeding and Denies easy bruising PFSH All Active Problems (Updated 09/27/23 @ 05:29 by Kenji Lee MD) Painful total knee replacement, right (Acute) Periprosthetic fracture of shaft of femur (Acute) Discharge planning issues (Acute) Ambulatory dysfunction (Acute) Acute pain of right lower extremity (Acute) Inability to walk (Acute) Cervical myelopathy (Acute) Right leg weakness (Acute) DNR (do not resuscitate) (Acute) Plantar wart, right foot (Acute) Neuropathy, idiopathic (Acute) Localized edema (Acute) bi-lateral ankle edema Venous insufficiency of both lower extremities (Acute) with chronic stasis changes Nail dystrophy (Acute) Imbalance (Acute) Lumbar stenosis (Acute) Irregular heart beat (Acute) Medical History Hyponatremia Recurrent falls History of GI diverticular bleed Afib Abdominal pain, suprapubic Dizziness 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 f/u with Dr. Roger @ [facility] and is aware he is having cataract Obesity History of neck pain Stasis dermatitis Seborrheic keratosis Adenomatous colon polyp Pain in left shoulder Knee pain, left Actinic keratosis Insomnia BPH (benign prostatic hyperplasia) History of excessive sweating HTN (hypertension) Achalasia GERD (gastroesophageal reflux disease) Depression ASCVD (arteriosclerotic cardiovascular disease) angioplasty 1993 Surgical History History of total right knee replacement (TKR) S/P PTCA (percutaneous transluminal coronary angioplasty) History of cervical discectomy H/O laminectomy S/P carpal tunnel release S/P tendon repair EGD - [facility] (12/29/16) Colonoscopy - [facility] (12/29/16) Family History Father Prostate cancer Hypertension Stroke Mother Hypertension Maternal Grandmother Stomach cancer Social History Smoking/Tobacco Use Status: Former Tobacco Use Quit Date: 02/21/85 Smoking risk assessment performed?: Yes Alcohol Intake: current Alcohol Intake frequency: a few times a month Alcohol type: beer Details: <1 DRINK PER DAY OF 06-05-20; Drug use: Never Substance use type: does not use Household members: none Housing: house Number of Children: 2 current occupation: Retired What is your relationship status?: Panel score (0-1 are the most socially isolated patients): 0 Do you feel safe at home: Yes Additional Social history: lives alone Meds Allergies and Home Medications Allergies Allergy/AdvReac Type Severity Reaction Status Date / Time hydromorphone HCl (From Allergy Intermediate Other (See Verified 09/25/23 13:35 Dilaudid) Comment) morphine Allergy Intermediate Itching Verified 09/25/23 13:35 vancomycin Allergy Intermediate Other (See Verified 09/25/23 13:35 Comment) acetaminophen (From Vicodin) Allergy Unknown Other (See Verified 09/25/23 13:35 Comment) hydrocodone bitartrate (From Allergy Unknown Other (See Verified 09/25/23 13:35 Vicodin) Comment) tamsulosin Allergy Unknown Other (See Verified 09/25/23 13:35 Comment) gabapentin AdvReac Intermediate Makes pt. Verified 09/25/23 13:35 loopy Home Medications ?Medication ?Instructions ?Recorded ?Confirmed ?Type acetaminophen 650 mg 1,300 mg PO Q12H 07/31/20 09/25/23 History tablet,extended release omeprazole 40 mg capsule,delayed 40 mg PO BID 07/31/20 09/25/23 History release walker #1 ea 07/31/20 09/25/23 History apixaban 5 mg tablet (Eliquis) 5 mg PO BID 12/31/20 09/25/23 History finasteride 5 mg tablet 5 mg PO HS 12/31/20 09/25/23 History spironolactone 25 mg tablet 25 mg PO DAILY 11/11/21 09/25/23 History Sinemet 25 mg-100 mg tablet 2 tab PO HS 02/09/22 09/25/23 History (carbidopa-levodopa) furosemide 40 mg tablet 40 mg PO BID 03/31/22 09/25/23 History simvastatin 40 mg tablet 40 mg PO DAILY 08/17/22 09/25/23 History silodosin 8 mg capsule 8 mg PO DAILY 06/07/23 09/25/23 History cyanocobalamin (vitamin B-12) 1,000 mcg PO DAILY 09/25/23 09/25/23 History 1,000 mcg tablet (Vitamin B-12) folic acid 1 mg tablet 1 mg PO DAILY 09/25/23 09/25/23 History hydroxyzine HCl 50 mg tablet 50 mg PO QHS 09/25/23 09/25/23 History losartan 50 mg tablet 50 mg PO DAILY 09/25/23 09/25/23 History melatonin 3 mg tablet 3 mg PO HS 09/25/23 09/25/23 History propranolol 10 mg tablet 10 mg PO BID 09/25/23 09/25/23 History tramadol 25 mg tablet 25 mg PO Q6H PRN 09/25/23 09/25/23 History cholecalciferol (vitamin D3) 25 25 mcg PO DAILY 09/28/23 09/28/23 History mcg (1,000 unit) tablet Exam Narrative Exam Narrative: Constitutional The patient is sitting in a WC without acute distress, right hip pain during movement and stabilization of opposite leg, increased pain with WB HENMT: Facial structures with normal appearance Neuro:alert and oriented X4. No neurological focal deficit Resp:Clear lung bilaterally Cardio: irregular rhythm, S1, S2, murmur, positive pulses to all 4 ext. GI: Abdomen is not distended, soft and non tender, bowel sounds are present : Negative Costovertebral angle tenderness Back/spine/Pelvis: No back tenderness, tingling or numbness Integumentary: dark-red discoloration to right LE w/o skin integrity impairement Extremities: Flexion and extension of right knee while in WC without pain , WB causes pain Psych: RASS 0, congruent- anxious mood and normal affect. Time Spent Time spent with Patient: >75 minutes Time was spent: preparing to see the patient(eg.review tests), obtaining and/or reviewing separately otained hiistory, ordering medications,tests, procedures, referring, communicating with other health direct support professional caregiver, indepentently interpreting results, counseling the patient and care coordination
--- NOTE | 2023-09-29 13:35 | CMSA_ITS ---
Date of service: 09/29/23 Time of Service: 13:35 SB Psychosocial/Act. Assmt Hospital Admission Admission Date: 09/26/23 Admission From:: ED Diagnosis:: Right knee effusion Swing Bed Admission Swing Bed Admit Date:: 09/29/23 Swing Bed Level of Care: Level 1/SNF Social Supports PREVIOUS FUNCTIONAL STATUS/SOCIAL/FAMILY SUPPORTS:: Daniel lives alone in a single family home in [place], [place] In April he fell and fractured his femur and was hospitalized at [facility]. Daniel spend some time in rehab at [facility] and then he went to the [facility]. His plan was to discharge back home from the [facility] in a couple of weeks. Daniel has 2 adult children. His daughter Cata is his healthcare agent and DPOA. 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 Work History Employment Status:: retired : Yes Benefits Financial: Social Security, Other Pension ( 's pension) and Medicare Episcopalian Active Rastafari Member:: No Rastafari Affliation: member of [employer] in [place] but does not routinely attend services Will Rastafari Members or Spinning Lathe Operator Visit:: No Advance Directives for Healthcare Advance Directives for Healthcare: Advance Directives Community Community Supports/Involvement: 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 Has started writing a book about growing up in [place] during WWII. Present Functional Status Physical Abilities:: requires use of a walker Cognitive:: intact Communication:: good verbal communication skills Sensory Systems: hearing good; had cataract surgery so no longer needs glasses except for readers and has dental implants Behavior:: appropriate. good sense of humor. Medical History PAST MEDICAL HISTORY/PAST SURGICAL HISTORY:: 3 spinal surgeries, recent fractured femur, GI bleed, PVD, CAD General Health:: good Admission Data Reason for Swing Bed Admission:: unable to ambulate secondary to pain in knee Discharge Plan:: Daniel will likely return to the [facility] prior to discharging home, possibly with PT. He will follow up with his PCP and plan of care and transport with family. Assessment: Daniel is a very pleasant alert and oriented 83 year old gentleman who was admitted on 09/26/23 due to a sudden knee injury which left him unable to ambulate. He is being treated with steroids, pain medication and PT. Card Cutter Helper: Nakita Branch Date Assessment was completed:: 09/30/23
--- NOTE | 2023-09-29 13:36 | CM.SWINGPC ---
Date of service: 09/29/23 Time of Service: 13:36 Swingbed Plan of Care Activites/Discharge Plan of care: SWING BED PROGRAM ACTIVITIES/DISCHARGE PLAN OF CARE ACTIVITIES PLAN Date:09/29/23 Identified Need:Individualized activity plan Intervention/Plan:Daniel enjoys puzzle books, Sudoko, crosswords and watching baseball on TV. He is friendly and open to conversation and engages well with staff. Daniel would like music therapy when available as well as pet therapy. Initials [facility] DISCHARGE PLAN Date:09/29/23 Identified Need:safe discharge plan Intervention/Plan: Anticipate Daniel will be discharged back to the [facility] when medically ready for discharge. He will follow up with his community providers and plan of care and transport with family. Initials: [facility]
[2023-09-29] MEDS: Acetaminophen 500 MG TAB 1000 MG PO ×2 (13:44→20:16)
[2023-09-29] MEDS: predniSONE 20 MG TAB 40 MG PO (13:54)
--- NOTE | 2023-09-29 14:00 | PHACLINREV_ITS ---
Pharmacy Admission Review Admission Clinical Review Admission Pharmacy Review: Discharge planning issues (Acute) Ambulatory dysfunction (Acute) Acute pain of right lower extremity (Acute) hydromorphone HCl (From Dilaudid) Allergy (Intermediate, Verified 09/25/23 13:35) Other (See Comment) morphine Allergy (Intermediate, Verified 09/25/23 13:35) Itching vancomycin Allergy (Intermediate, Verified 09/25/23 13:35) Other (See Comment) acetaminophen (From Vicodin) Allergy (Unknown, Verified 09/25/23 13:35) Other (See Comment) hydrocodone bitartrate (From Vicodin) Allergy (Unknown, Verified 09/25/23 13:35) Other (See Comment) tamsulosin Allergy (Unknown, Verified 09/25/23 13:35) Other (See Comment) gabapentin Adverse Reaction (Intermediate, Verified 09/25/23 13:35) Makes pt. loopy Resuscitation Status DNR/DNI Comments Comments/Follow Ups: Patient transferred from [place] to [facility] status Pharmacy Admission Review Renal Dosing Medications needing adjustments: Reviewed (CrCl 44.91 mL/min) List of meds needing interventions: Patient takes silodosin 8mg at home. Recommended dose for CrCl < 50 is 4mg daily. This has not been brought in yet for the patient (nursing is checking with them). Will discuss with provider if it's brought in from home. Anticoagulation DVT Prophylaxis: Reviewed Medications: Apixaban (5mg PO BID) Relevant Labs Electrolytes, C-Reactive P, ESR: Reviewed (no new labs for today) Cardiac Review BP, HR, EF%: Reviewed (WNL) QTc Review QTc: Reviewed (No EKG on file) IV to PO Switch IV Medications: Reviewed Home Meds Home Med List reviewed: Reviewed Relevent Home Meds Not ordered & why?: Vitamin B12 Current Meds Current Medication Order Review: Intervened Comments: Copied all orders from [place] account number to [facility] account number Comments Comments/Follow Ups: Patient transferred from [place] to [facility] status
[2023-09-29 19:07] VITALS: BP 141/65; PULSE 59; RESP 18; TEMP 36; O2SAT 96
[2023-09-29] MEDS: Celecoxib 100 MG CAP PO (20:17)
[2023-09-29] MEDS: Omeprazole 20 MG CAPCR 40 MG PO (20:18)
[2023-09-29] MEDS: Apixaban 5 MG TAB PO (20:18)
[2023-09-29] MEDS: Finasteride 5 MG TAB PO (20:18)
[2023-09-29] MEDS: Simvastatin 40 MG TAB PO (20:18)
[2023-09-29] MEDS: Carbidopa 25/Levodopa 100 TAB PO (20:19)
[2023-09-29] MEDS: hydrOXYzine HCL 25 MG TAB 50 MG PO (20:19)
[2023-09-29] MEDS: Propranolol 10 MG TAB PO (20:19)
[2023-09-29] MEDS: Melatonin 3 MG TAB PO (20:20)
[2023-09-29] MEDS: Normal Saline Flush 10 ML SYR IVP (20:20)
[2023-09-29] MEDS: traMADol 50 MG TAB 25 MG PO (21:22)
[2023-09-29] MEDS: Lidocaine Patch Removal 1 EACH TP (21:24)
[2023-09-30] MEDS: traMADol 50 MG TAB 25 MG PO (03:25)
[2023-09-30] MEDS: Diclofenac 1% Gel 100 GM TUBE TP (04:36)
[2023-09-30 07:37] VITALS: BP 146/69; PULSE 50; RESP 17; TEMP 36.5; O2SAT 97
[2023-09-30] MEDS: Acetaminophen 500 MG TAB 1000 MG PO ×3 (07:39→20:26)
[2023-09-30] MEDS: Omeprazole 20 MG CAPCR 40 MG PO ×2 (07:39→20:29)
[2023-09-30] MEDS: Celecoxib 100 MG CAP PO ×2 (07:40→20:26)
[2023-09-30] MEDS: Docusate Sodium 100 MG CAP PO ×2 (07:40→20:28)
[2023-09-30] MEDS: Apixaban 5 MG TAB PO ×2 (07:40→20:26)
[2023-09-30] MEDS: predniSONE 20 MG TAB 40 MG PO (08:03)
[2023-09-30] MEDS: Folic Acid 1 MG TAB PO (08:03)
[2023-09-30] MEDS: Cholecalciferol (Vitamin D3) 1,000 UNIT TAB 1000 UNITS PO (08:03)
[2023-09-30] MEDS: Losartan 50 MG TAB PO (08:03)
[2023-09-30] MEDS: Furosemide 40 MG TAB PO (08:04)
[2023-09-30] MEDS: Senna TAB 2 TAB PO (08:04)
[2023-09-30] MEDS: Spironolactone 25 MG TAB PO (08:04)
[2023-09-30] MEDS: traMADol 50 MG TAB PO ×2 (09:15→20:28)
--- NOTE | 2023-09-30 10:17 | IN_ITS ---
PT Notes Visit Reasons: R lower ext. pain, R knee eff. amb. dysfunction, s Inpatient Physical Therapy Initial Evaluation Dates: September 30, 2023 Pt Profile/ admitting diagnosis: Mr. Beard is an 83 year-old man with h/o right TKA in 2013, right femur fx s/p IMN May 2023, HTN, HLD, heart disease s/p SD, aortic stenosis, paroxysmal atrial fibrillation on apixaban, prior ETOH abuse, BPH, GERD, depression, RLS, insomnia, and OA. He presented to the ED 09/26/23 with acute onset RLE pain that began after performing standing leg exercises. He has a long history of degenerative issues of the spine. Underwent L-spine surgery in 1995 - per notes L2-3 and L4-5 laminectomies - for falls, difficulty walking, and right leg weakness. He underwent c-spine surgery in Jan [address] Slade - C3-4 discectomy, C6 corpectomy, and C5-7 fusion - for neck and bilateral shoulder pain. Finally, he underwent L3-4 laminectomy/facetectomy in 2017, again with Dr. Slade for hip pain which resolved following the surgery. He has been admitted on Swing Bed status for continued rehabilitation, and PT orders received for evaluation and treatment. Social History/Home Situation: Darryl has most recently been residing at [facility], where he ambulated independently with FWW. He had been working with PT regularly. Equipment Owned/DME: [facility], FWW Patient pre-medicated prior to today's evaluation. SUBJECTIVE: Lloyd states that he remains in a great deal of pain. Pain is moving all over, with discomfort in the knee, circumferentially about the thigh, into the groin and buttock, and swirling up into my back. He remains discouraged about a lack of formal diagnosis for his symptoms. OBJECTIVE: Pain: 1/10 at rest ROM: Right LE: Hip flexion 100 degrees; hip Abduction 15 degrees; knee 0 to 118 degrees, Ankle WNL Trunk motion lacks extension, with patient maintaining a significantly forward flexed position in standing. He is able to improve upright positioning with cues, although this intermittently increases pain in LE. In sitting, he demonstrates good trunk flexion, resting elbows to knees. This is a comfortable position for him. With return to neutral, he has sharp increase in pain requiring rest period before proceeding. STRENGTH: B UE: 5 / 5 L LE: 5/5 R LE: Hip flexion 3/5. Quads 4+/5. Able to functionally perform SLR when supported in chair, without extension lag. HS 4+/5. Ankle DF 5/5. BED MOBILITY/TRANSFERS: Supine-sit supervision Sit-supine : min A for RLE Sit-stand at times requires mod A, and at times only CGA at FWW Stand-sit CGA with cues for hand placement and trunk positioning Bed-Chair stand assist lift Chair-bed stand assist lift GAIT: Ambulates 6 feet x 4 reps in straight line with FWW min assist with wheelchair follow closely; step to pattern and increased weight bearing through upper extremities. With repetition, he demonstrates improving stride length, although increasing pain and fatigue. BALANCE: Static sitting Normal Dynamic sitting: Good Static standing: Fair with BUE support Dynamic standing: Fair - with BUE support SPECIAL TESTS: Mobility Limitations Standardized Measure [facility] AM-PAC 6 clicks Basic Mobility Inpatient Short Form: Raw Score: 15 CMS Score: 58% impairment Treatment: Initial Evaluation (75219) Therapeutic Activities (86353) sit-stand transfers x 5, cues for hand placement and trunk positioning ambulation with cues for equipment management, 6'x4 with FWW, min A and chair follow static standing to improve proprioceptive sense, endurance and confidence with walking ASSESSMENT: Pt is 83yo male referred with pain in his RLE with imaging inconclusive at this time of loosening hardware in his right knee. Additionally has extensive h/o degenerative changes in the spine, with multiple previous surgeries. He demonstrates continued pain and instability in standing, with significant apprehension with all weight bearing activities. He complains of pain primarily in his right knee with radiating/shooting up to groin area in standing intermittently radiating to his right sided low back, and describes sensation of both legs feeling wobbly. He also notes the pain occurs in seated position when stabilizing with RLE to move his LLE. He continues to perseverate on the source of his pain, and requires continuous encouragement for all weight bearing activities. GOALS ( Met / Not Met): 1. supine-sit: supervision [met] 2. sit-supine: supervision [notmet] 3. sit-stand: supervision[NOT MET] 4. stand-sit: supervision [NOT MET] 4. Able to ambulate 50' with FWW and supervision [NOT MET] DISCHARGE PLAN/RECOMMENDATIONS: anticipate d/c back to [facility] once ambulatory TREATMENT CODE/TIME: (72980, [id number]) [id number] Dora Johnson, PT, DPT [facility]
--- NOTE | 2023-09-30 15:07 | PTTR_ITS ---
PT Notes Visit Reasons: R lower ext. pain, R knee eff. amb. dysfunction, s Inpatient Physical Therapy Treatment Note [facility] Date: 09/30/23 PRECAUTIONS:Fall, standard SUBJECTIVE: Daniel is agreeable to walking further this afternoon. Again expresses his distrust in his leg, stating that it feels wobbly. He continues to report pain through knee, thigh (ant/post), groin, buttock. States that he has a great deal of pain getting on/off the toilet with the Steady Lift. OBJECTIVE: ? PAIN: 03/02 at rest Therapeutic Activities (40234d6): Direct one-on-one instruction in dynamic activities to improve functional performance. ? BED MOBILITY/TRANSFERS? Sit<->stand: mod A from recliner initially. Patient extremely anxious regarding chair stability, and requires assist of 2 for all transfers. With reassurance and cues, he's able to stand with CGA only. Performed for 8 repetitions throughout session, varying in level of assist throughout. On two occasions, patient cries out and sits abruptly, with poorly controlled descent, reporting fear that the knee could buckle and the chair was not close enough. ? Chair-toilet: Agrees to transfer to toilet without Steady Lift. Ambulates 10' with FWW, CGA and chair follow. Demonstrates good safety with turn to toilet, cues to utilize grab bar for stand-sit, which he's able to complete with CGA and without pain. Toilet to chair: CGA for sit-stand, grab bar support. With turning, he demonstrates diminished safety awareness, utilizing one hand to walker and one hand to grab bar. Requires max cues for both hands to walker, although becomes agitated during transfer. Debriefed post-transfer, with patient receptive to concept of two hands to walker to prevent tipping. ? Therapeutic Exercises (45221q3): Direct one-on-one instruction in therapeutic exercises to develop strength, endurance, range of motion and flexibility. ? Instructed in the following: LAQ 10x seated march 10x ankle pumps 10x shoulder flexion 10x Ambulation ? Assistive Device: FWW? Weight bearing: WBAT Assist: CGA, chair follow ? Distance:? 20'x1, 40'x1 ? Deviation: very apprehensive about ?turning and chair location during ambulation. Does experience increasing RLE pain during longer ambulation, with p ain extending to calf. This is alleviated with standing trunk flexion. ? ASSESSMENT:? Improving mobility. Very anxious about his status and his prognosis. He requires frequent reminders of his continued functional gains. PLAN: Continue PT intervention to maximize mobility and safety. TREATMENT CODE/TIME: [id number]; 1737-3727 ([id number], 10836) DISCHARGE RECOMMENDATION: Return to [facility] vs home with HH PT, depending on progress toward established goals Dora Johnson, PT, DPT [facility]
--- NOTE | 2023-09-30 16:53 | NUR.NOTE ---
Nursing Note: Pt walked to the toilet with PT earlier today. When nursing offered to walk with him to the toilet he told nursing that he was only going to walk with PT, he did not want to take any chances. Nursing assured him that PT ok'd the nurses to walk with him, but he is still too apprehensive.
--- NOTE | 2023-09-30 17:22 | CHAPLAIN ---
I had a brief visit with Veronika Chirag. I explained my role and offered support. He was up in the chair watching something on his phone and said he is in touch with family on a regular basis.
--- NOTE | 2023-09-30 18:07 | NUR.NOTE ---
Nursing Note: PT asked repeatedly why he was not having an MRI of his spine over the last couple days. He stated that his neurologist had recommended it. Brought computer in to pt room and sat next to him, read through MD notes with him and explained what things meant as went through them. Also sent a message to Hospitalist that he felt he did not have any answers, so Hospitalist will address it tomorrow. Pt was appreciative.
[2023-09-30 19:57] VITALS: BP 109/59; PULSE 55
[2023-09-30] MEDS: Simvastatin 40 MG TAB PO (20:27)
[2023-09-30] MEDS: Melatonin 3 MG TAB PO (20:27)
[2023-09-30] MEDS: Carbidopa 25/Levodopa 100 TAB PO (20:27)
[2023-09-30] MEDS: Finasteride 5 MG TAB PO (20:27)
[2023-09-30] MEDS: hydrOXYzine HCL 25 MG TAB 50 MG PO (20:28)
[2023-10-01 05:49] LABS: HCT 37.1 % (40.0-50.0); HGB 12.7 g/dL (13.5-17.5); MCH 30.8 pg (27.0-33.0); MCHC 34.2 % (32.0-36.0); MCV 90 fL (80-95); MPV 9.7 fL (8.0-11.0); Platelet Count 145 10^3/uL (130-400); RBC 4.12 10^6/uL (4.36-5.78); RDW 14.6 % (11.8-14.1); RDW-SD 48.1 fL; WBC 8.48 10^3/uL (4.4-10.8)
[2023-10-01 05:56] LABS: Anion Gap 5.6 mmol/L (3-11); BUN 35 mg/dL (7-18); CO2 27.4 mmol/L (21.0-32.0); CREATININE 1.1 mg/dL (0.70-1.30); Calcium 8.5 mg/dL (8.5-10.1); Chloride 96 mmol/L (98-107); Estimated GFR 66.19 (mL/min/1.73m2); Glucose 108 mg/dL (74-106); Potassium 4.5 mmol/L (3.5-5.1); Sodium 129 mmol/L (136-145)
[2023-10-01] MEDS: Omeprazole 20 MG CAPCR 40 MG PO ×2 (07:52→20:34)
[2023-10-01] MEDS: Cholecalciferol (Vitamin D3) 1,000 UNIT TAB 1000 UNITS PO (07:52)
[2023-10-01] MEDS: Folic Acid 1 MG TAB PO (07:52)
[2023-10-01] MEDS: predniSONE 20 MG TAB 40 MG PO (07:52)
[2023-10-01] MEDS: Celecoxib 100 MG CAP PO ×2 (07:52→20:35)
[2023-10-01] MEDS: Losartan 50 MG TAB PO (07:53)
[2023-10-01] MEDS: Furosemide 40 MG TAB PO (07:53)
[2023-10-01] MEDS: Spironolactone 25 MG TAB PO (07:53)
[2023-10-01] MEDS: Apixaban 5 MG TAB PO ×2 (07:53→20:35)
[2023-10-01] MEDS: Acetaminophen 500 MG TAB 1000 MG PO ×3 (07:54→20:34)
[2023-10-01] MEDS: Diclofenac 1% Gel 100 GM TUBE TP (07:55)
[2023-10-01 08:00] VITALS: BP 150/69; PULSE 41; RESP 15; TEMP 35.8; O2SAT 95
[2023-10-01 10:35] VITALS: PULSE 60
--- NOTE | 2023-10-01 11:02 | PTTR_ITS ---
PT Notes Visit Reasons: R lower ext. pain, R knee eff. amb. dysfunction, s Inpatient Physical Therapy Treatment Note [facility] Date: 10/01/23 SUBJECTIVE: Pt states that he is frustrated with the lack of information he has received about his pain. He has no idea what happened to his right leg and he wants answers. OBJECTIVE: ? PAIN: Pt reports R knee pain, right buttock pain, and right low back pain when attempting to stand on his right leg. No pain noted with LAQs, seated hip flexion, seated calf raises Therapeutic Activities (41551l4): Direct one-on-one instruction in dynamic a ctivities to improve functional performance. ? BED MOBILITY/TRANSFERS ? Sit-stand: CGA ? Stand-sit: CGA ? Bed-Chair: CGA ? Chair-bed: CGA -Provided skilled cues and instruction on performance and technique throughout. GAIT? Assistive Device: RW ? Weight bearing: FWB Assist: min assist ? Distance: -4 steps fwd, 4 steps bwd ? -amb 10 ft from chair to bed and back x2 needing significant encouragement and cues, no chair follow ?Deviation: Significant fear observed, increased UE support especially during RLE stance phase ? EXERCISES -Pt performed seated LAQs, seated hip flex, and seated calf raises x10 bilat; then performed standing weight shifting and marching x1 min each ? ASSESSMENT:? Pt has a significant fear of falling due to his RLE instability which is causing him to be a risk for falling. He needed significant encouragement to walk w/o a chair follow today but once he did it he became more confident in ambulatory activities. It does seem like his pain is mostly due to his R leg weaknesses. A long discussion was had with the patient today in regards to progressing with strengthening based activities and mobility to decrease his pain by allowing his muscles to adapt. He seemed to feel better both mentally and physically following todays treatment. He will continue to benefit from PT services while in the hospital to help him become more functional and help plan a safe d/c. PLAN: Progress with ambulation to increase confidence and decrease fear of falling TREATMENT CODE/TIME: Ther Act (63411n7) - 45 min DISCHARGE RECOMMENDATION: D/c to home when independent
[2023-10-01 19:37] VITALS: BP 155/90; PULSE 56; RESP 15; TEMP 35.8; O2SAT 98
[2023-10-01] MEDS: Carbidopa 25/Levodopa 100 TAB PO (20:33)
[2023-10-01] MEDS: Finasteride 5 MG TAB PO (20:34)
[2023-10-01] MEDS: hydrOXYzine HCL 25 MG TAB 50 MG PO (20:34)
[2023-10-01] MEDS: traMADol 50 MG TAB PO (20:34)
[2023-10-01] MEDS: Melatonin 3 MG TAB PO (20:34)
[2023-10-01] MEDS: Simvastatin 40 MG TAB PO (20:35)
[2023-10-02 08:08] VITALS: BP 143/67; PULSE 45; RESP 15; TEMP 35.7; O2SAT 97
[2023-10-02] MEDS: Celecoxib 100 MG CAP PO ×2 (08:58→20:04)
[2023-10-02] MEDS: Apixaban 5 MG TAB PO ×2 (08:58→20:04)
[2023-10-02] MEDS: Cholecalciferol (Vitamin D3) 1,000 UNIT TAB 1000 UNITS PO (08:58)
[2023-10-02] MEDS: Docusate Sodium 100 MG CAP PO ×2 (08:58→20:04)
[2023-10-02] MEDS: Acetaminophen 500 MG TAB 1000 MG PO ×3 (08:58→20:05)
[2023-10-02] MEDS: Folic Acid 1 MG TAB PO (08:58)
[2023-10-02] MEDS: Furosemide 40 MG TAB PO (08:59)
[2023-10-02] MEDS: predniSONE 20 MG TAB PO (08:59)
[2023-10-02] MEDS: Spironolactone 25 MG TAB PO (08:59)
[2023-10-02] MEDS: Omeprazole 20 MG CAPCR 40 MG PO ×2 (08:59→20:04)
[2023-10-02] MEDS: Losartan 50 MG TAB PO (08:59)
[2023-10-02] MEDS: Senna TAB 2 TAB PO (08:59)
--- NOTE | 2023-10-02 12:02 | PT.INTREAT ---
PT Notes Visit Reasons: R lower ext. pain, R knee eff. amb. dysfunction, s Inpatient Physical Therapy Treatment Note [facility] Date: 10/02/2023 SUBJECTIVE: Daniel states that he feels a little more fatigued than he did yesterday. He has been waiting to get washed up by nursing. He does not feel like he can perform his pericare appropriately due to his balance issues. OBJECTIVE: ? PAIN: Significant RLE pain randomly during movements VITALS: Monitored by nursing Therapeutic Activities (57588p2): Direct one-on-one instruction in dynamic activities to improve functional performance. ? BED MOBILITY/TRANSFERS? Sit-stand: CGA - occasional min assist based on positioning Stand-sit: CGA ? Bed-Chair: CGA ? Chair-bed: CGA -Provided skilled cues and instruction on performance and technique throughout. ? GAIT? Assistive Device: RW ? Weight bearing: FWB Assist: CGA? Distance: 30 ft x 2 ? Deviation: increased forward flexion, decreased step length, high fear of falling ? ASSESSMENT:? Daniel continues to progress with his ambulation distance and gait speed. He still is limited by his pain but his pain does not seem to currently be causing any risk of falling. He needs a lot of encouragement to progress with his walking but is able to progress with motivational speaking. He requires many verbal and tactile cues for posture throughout his ambulatory activities. He will continue to benefit from rehab to gain the necessary function to return home independently. PLAN: Continue motivational speaking to encourage progress with walking and function TREATMENT CODE/TIME: Ther Act (22463) x3 - 45 min DISCHARGE RECOMMENDATION: Back to the [facility] once independent
[2023-10-02] MEDS: traMADol 50 MG TAB PO ×2 (13:34→22:28)
[2023-10-02 15:21] VITALS: BP 126/69; PULSE 63; RESP 18; TEMP 36; O2SAT 97
--- NOTE | 2023-10-02 15:35 | NUR.NOTE ---
Nursing Note: Patient refusing to participate in his care. Patient walked in hallway with physical therapy ([facility]) using a walker. Patient refusing to stand, stand pivot, or walk with the nursing staff. He states I will get up again tomorrow when the physical therapist comes and if you don't do what I want I'll just pee all over the chair. Patient demanding the sit to stand. Patient offered a urinal, he became increasingly angry stating he is unable and unwilling to use the urinal. Patient also states he is not capable of performing his own ADL's. He yelled at the MED SPECIALIST to clean his balls. She made him a bucket of warm soapy water and wash clothes and offered to assist him. He said he could not be expected to wash himself. He was aggressive and argumentative with the entire staff. He argued and disagreed with every aspect of his care.
[2023-10-02] MEDS: Polyethylene Glycol 3350 17 GM PACKET PO (16:04)
[2023-10-02 19:56] VITALS: BP 110/67; PULSE 73; RESP 17; TEMP 36.5; O2SAT 95
[2023-10-02] MEDS: Carbidopa 25/Levodopa 100 TAB PO (20:03)
[2023-10-02] MEDS: Melatonin 3 MG TAB PO (20:04)
[2023-10-02] MEDS: Simvastatin 40 MG TAB PO (20:04)
[2023-10-02] MEDS: hydrOXYzine HCL 25 MG TAB 50 MG PO (20:04)
[2023-10-02] MEDS: Finasteride 5 MG TAB PO (20:05)
[2023-10-02] MEDS: Propranolol 10 MG TAB PO (20:13)
[2023-10-03 08:16] VITALS: BP 114/67; PULSE 60; RESP 19; TEMP 36.7; O2SAT 96
[2023-10-03] MEDS: Polyethylene Glycol 3350 17 GM PACKET PO (08:18)
[2023-10-03] MEDS: Senna TAB 2 TAB PO (08:19)
[2023-10-03] MEDS: Acetaminophen 500 MG TAB 1000 MG PO ×3 (08:19→21:32)
[2023-10-03] MEDS: Omeprazole 20 MG CAPCR 40 MG PO ×2 (08:19→21:31)
[2023-10-03] MEDS: Apixaban 5 MG TAB PO ×2 (08:20→21:32)
[2023-10-03] MEDS: Cholecalciferol (Vitamin D3) 1,000 UNIT TAB 1000 UNITS PO (08:20)
[2023-10-03] MEDS: Furosemide 40 MG TAB PO (08:21)
[2023-10-03] MEDS: Celecoxib 100 MG CAP PO ×2 (08:21→21:32)
[2023-10-03] MEDS: Docusate Sodium 100 MG CAP PO ×2 (08:21→21:32)
[2023-10-03] MEDS: predniSONE 20 MG TAB PO (08:21)
[2023-10-03] MEDS: Spironolactone 25 MG TAB PO (08:22)
[2023-10-03] MEDS: Losartan 50 MG TAB PO (08:22)
[2023-10-03] MEDS: Folic Acid 1 MG TAB PO (08:22)
[2023-10-03] MEDS: Diclofenac 1% Gel 100 GM TUBE TP (08:23)
--- NOTE | 2023-10-03 11:18 | PT.INTREAT ---
PT Notes Visit Reasons: R lower ext. pain, R knee eff. amb. dysfunction, s Inpatient Physical Therapy Treatment Note [facility] Date: 10/03/2023 SUBJECTIVE: Daniel reports he has been walking with Nursing to use the bathroom since last night. I am doing it but I still feel unsteady and it hurts from my knee to my low back. OBJECTIVE:Pt seated in bedside chair with legs elevated. Agreeable to participate. ? PAIN: Aches at rest; more intense while walking VITALS: Monitored by nursing Therapeutic Activities (83999g7): Direct one-on-one instruction in dynamic activities to improve functional performance. ? BED MOBILITY/TRANSFERS? Sit-stand: CGA Stand-sit: CGA cue x 1 for hand placement to reach back and slide RLE forward prior to sitting? Bed-Chair: CGA with RW? Chair-bed: CGA with RW -Provided skilled cues and instruction on performance and technique throughout. ? GAIT? Assistive Device: RW ? Weight bearing: FWB Assist: CGA? Distance: 45 ft x 2 ? Deviation: increased forward flexion, decreased step length on Right, high fear of falling ? Therapeutic Exercises (25703i[]): Direct one-on-one instruction in therapeutic exercises to develop strength, endurance, range of motion and flexibility. ? Exercises ? seated hip flexion , LAQ, Abd/add, heel raises, Ankle pumps with knee extension 10 reps ? Provided skilled instruction in proper exercise performance Provided skilled manual cues to facilitate proper muscle recruitment and/or form: [] ? ASSESSMENT:? Daniel demonstrates significant improvement in his ability to tolerate WB tasks including ambulation with RW. He reports he has pain however he demonstrated ability to continue to increase his distance of walking without antalagic pattern. He requires many verbal and tactile cues for posture throughout his ambulatory activities. He had one verbal outburst of pain as he transitioned from stand to sit prior to sliding RLE forward and reaching back for chair. He will continue to benefit from rehab to gain the necessary function to return home independently. PLAN: Continue motivational speaking to encourage progress with walking and function TREATMENT CODE/TIME: Ther Act (12505) x2 ;28618g 1 - 46 min [id number] DISCHARGE RECOMMENDATION: Back to the [facility] with home PT sevices once independent
[2023-10-03 11:37] VITALS: BP 118/62; PULSE 57; RESP 17; TEMP 36.8; O2SAT 98
--- NOTE | 2023-10-03 15:42 | PTTR_ITS ---
PT Notes Visit Reasons: R lower ext. pain, R knee eff. amb. dysfunction, s Inpatient Physical Therapy Treatment Note [facility] Date: 10/03/2023 SUBJECTIVE: Daniel reports he is frustrated by lack of reason/diagnosis for his pain. It hurts less today than it did yesterday walking OBJECTIVE:Pt seated in bedside chair with legs elevated. Agreeable to participate. ? PAIN: aching VITALS: Monitored by nursing Therapeutic Activities (28739h9): Direct one-on-one instruction in dynamic activities to improve functional performance. ? BED MOBILITY/TRANSFERS? Sit-stand: CGA x 4 trials Stand-sit: CGA cue x 1 for hand placement to reach back and slide RLE forward prior to sitting? Bed-Chair: CGA with RW? Chair-bed: CGA with RW -Provided skilled cues and instruction on performance and technique throughout. ? GAIT? Assistive Device: RW ? Weight bearing: FWB Assist: CGA? Distance: 105 feet x1 with 4 turns 90 and 180 degrees ? Deviation: increased forward flexion, decreased step length on Right initially then progresses to reciprocal pattern, high fear of falling ? Therapeutic Exercises (99707o8): Direct one-on-one instruction in therapeutic exercises to develop strength, endurance, range of motion and flexibility. ? Exercises ? seated hip flexion , LAQ, Abd/add, heel raises, Ankle pumps with knee extension 10 reps ? Provided skilled instruction in proper exercise performance Provided skilled manual cues to facilitate proper muscle recruitment and/or form: [] ? ASSESSMENT:? Daniel demonstrates increase tolerance to standing tasks as noted by ability to ambulate 105feet with RW including turning and 3 stand rests. He initially demonstrates step to antalgic gait this session then advanced to reciprocal pattern. Pt noted to talk to himself expressing frustration with himself which motivates him to increase speed and step length. He demonstrated carryover with hand and sliding RLE forward after initial trial. He did report one episode of grabbing pain in his right thigh as he transitioned to sitting . He noted the pain resolved as soon as he leaned back in the chair. This is consistent with his mid femur fracture non radiating to his back. He will continue to benefit from rehab to gain the necessary function to return home independently. PLAN: Continue motivational speaking to encourage progress with walking and function TREATMENT CODE/TIME: Ther Act (93959) x1 ;50952j 1 4945- 9104 DISCHARGE RECOMMENDATION: Back to the [facility] with home PT sevices once independent
[2023-10-03] MEDS: hydrOXYzine HCL 25 MG TAB 50 MG PO (21:31)
[2023-10-03] MEDS: Melatonin 3 MG TAB PO (21:32)
[2023-10-03] MEDS: Simvastatin 40 MG TAB PO (21:32)
[2023-10-03] MEDS: traMADol 50 MG TAB PO (21:32)
[2023-10-03] MEDS: Finasteride 5 MG TAB PO (21:33)
[2023-10-03] MEDS: Carbidopa 25/Levodopa 100 TAB PO (21:33)
[2023-10-04 07:29] VITALS: BP 150/75; PULSE 60; RESP 12; TEMP 36; O2SAT 96
[2023-10-04] MEDS: Apixaban 5 MG TAB PO ×2 (08:14→19:50)
[2023-10-04] MEDS: Omeprazole 20 MG CAPCR 40 MG PO ×2 (08:14→19:50)
[2023-10-04] MEDS: predniSONE 20 MG TAB PO (08:14)
[2023-10-04] MEDS: Furosemide 40 MG TAB PO (08:14)
[2023-10-04] MEDS: Celecoxib 100 MG CAP PO ×2 (08:14→19:50)
[2023-10-04] MEDS: Cholecalciferol (Vitamin D3) 1,000 UNIT TAB 1000 UNITS PO (08:14)
[2023-10-04] MEDS: Folic Acid 1 MG TAB PO (08:14)
[2023-10-04] MEDS: Acetaminophen 500 MG TAB 1000 MG PO ×3 (08:14→19:51)
[2023-10-04] MEDS: Losartan 50 MG TAB PO (08:14)
[2023-10-04] MEDS: Senna TAB 2 TAB PO (08:15)
[2023-10-04] MEDS: Spironolactone 25 MG TAB PO (08:15)
[2023-10-04] MEDS: Docusate Sodium 100 MG CAP PO (08:15)
[2023-10-04] MEDS: Propranolol 10 MG TAB PO (08:18)
[2023-10-04] MEDS: Nystatin POWDER 15 GM JAR TP ×2 (16:54→19:51)
--- NOTE | 2023-10-04 17:03 | PTTR_ITS ---
PT Notes Visit Reasons: R lower ext. pain, R knee eff. amb. dysfunction, s Inpatient Physical Therapy Treatment Note [facility] Date: 10/04/2023 SUBJECTIVE: It hurts less today than it did yesterday walking OBJECTIVE:Pt seated in bedside chair with legs elevated. Agreeable to participate. ? PAIN: aching VITALS: Monitored by nursing Therapeutic Activities (88193u3): Direct one-on-one instruction in dynamic activities to improve functional performance. ? BED MOBILITY/TRANSFERS? Sit-stand: SBA x 4 trials Stand-sit: CGA cue x 1 for hand placement to reach back and slide RLE fo rward prior to sitting? Bed-Chair: CGA with RW? Chair-bed: CGA with RW -Provided skilled cues and instruction on performance and technique throughout. ? GAIT? Assistive Device: RW ? Weight bearing: FWB Assist: CGA? Distance: 105 feet x2 with 4 turns 90 and 180 degrees ? Deviation: increased forward flexion, decreased step length on Right initially then progresses to reciprocal pattern, high fear of falling ? Therapeutic Exercises (00434e9): Direct one-on-one instruction in therapeutic exercises to develop strength, endurance, range of motion and flexibility. ? Exercises ? seated hip flexion with 3 pound weight, LAQ with 3 pound weight, Abduction with red Thera-Band ,adduction isometric against 3 pound weighted ball, Ankle pumps with knee extension 10 reps, double limb LAQ with isometric ho ld of 3 pound weighted ball between ankles x 10 reps ? ? HEP issued for ankle pumps with knee extension, long arc quad, marching seated 10 reps x 2 sets 2 times a day ? Provided skilled instruction in proper exercise performance Provided skilled manual cues to facilitate proper muscle recruitment and/or form: ? ASSESSMENT:? Daniel demonstrates increase tolerance to standing tasks as noted by ability to ambulate 105 feet with RW including turning and 1stand rest per 105 feet. He initially demonstrates step to antalgic gait this session then advanced to reciprocal pattern. He demonstrated increased step length as compared to prior sessions. He demonstrated carryover with hand and sliding RLE forward from last session. He again reported one episode of grabbing pain in his right thigh as he transitioned to sitting . He noted the pain resolved as soon as he leaned back in the chair. He also noted increased groin and mid thigh pain in standing when cued to perform upright trunk. Rectus femoris noted to be tight will initiate stretching to increase length and reduce pain. He will continue to benefit from rehab to gain the necessary function to return home independently. PLAN: Continue motivational speaking to encourage progress with walking and function TREATMENT CODE/TIME: Ther Act (59427) x2 ;53222h 1 [id number] DISCHARGE RECOMMENDATION: Back to the [facility] with home PT sevices once independent
--- NOTE | 2023-10-04 17:12 | PT.INTREAT ---
PT Notes Visit Reasons: R lower ext. pain, R knee eff. amb. dysfunction, s Inpatient Physical Therapy Treatment Note [facility] Date: 10/04/2023 SUBJECTIVE: I feel like my knee is more stable today. OBJECTIVE:Pt seated in bedside chair with legs down. Agreeable to participate. ? PAIN: Same aching feeling VITALS: Monitored by nursing Therapeutic Activities (96622q0): Direct one-on-one instruction in dynamic activities to improve functional performance. ? BED MOBILITY/TRANSFERS? Sit-stand: SBA Stand-sit: CGA cue x 1 for to slide RLE forward prior to sitting? Bed-Chair: Standby assist with RW? Chair-bed: Standby assist with RW -Provided skilled cues and instruction on performance and technique throughout. ? GAIT? Assistive Device: RW ? Weight bearing: FWB Assist: CGA? Distance: 115 feet x1 with 4 turns 90 and 180 degrees ? Deviation: increased forward flexion at hips, reciprocal pattern, fear of falling ? Neuromuscular Re-education (10663i6): Activities that facilitate re-education of movement balance, posture, coordination, and proprioception or kinesthetic sense, requiring skilled tactile and verbal cues ? Exercises/techniques: ? Dynamic standing with 1 upper extremity support item retrieval from floor in various surfaces shoulder to floor height with use of academic hospitalist. Standing postural alignment in shoulder with base of support, and staggered step position to promote rectus femoris lengthening. ? ASSESSMENT:? He noted increased groin and mid thigh pain in standing when cued to perform upright trunk. Rectus femoris noted stretching performed in standing to increase length and reduce pain. After stretching patient demonstrated ability to ambulate with reciprocal pattern from initial stepping. He will continue to benefit from rehab to gain the necessary function to return home independently. PLAN: Continue motivational speaking to encourage progress with walking and function TREATMENT CODE/TIME: Ther Act (81178) x1 ;41619b 1 4102-1511 DISCHARGE RECOMMENDATION: Back to the [facility] with home PT sevices once independent
[2023-10-04] MEDS: Carbidopa 25/Levodopa 100 TAB PO (19:49)
[2023-10-04] MEDS: Melatonin 3 MG TAB PO (19:50)
[2023-10-04] MEDS: traMADol 50 MG TAB PO (19:50)
[2023-10-04] MEDS: Simvastatin 40 MG TAB PO (19:50)
[2023-10-04] MEDS: Finasteride 5 MG TAB PO (19:50)
[2023-10-04] MEDS: hydrOXYzine HCL 25 MG TAB 50 MG PO (19:50)
[2023-10-05] MEDS: Nystatin POWDER 15 GM JAR TP ×2 (06:10→20:51)
[2023-10-05 07:54] VITALS: BP 142/58; PULSE 57; RESP 16; TEMP 35.7; O2SAT 96
[2023-10-05] MEDS: Apixaban 5 MG TAB PO ×2 (08:08→20:50)
[2023-10-05] MEDS: Spironolactone 25 MG TAB PO (08:08)
[2023-10-05] MEDS: Propranolol 10 MG TAB PO (08:08)
[2023-10-05] MEDS: Acetaminophen 500 MG TAB 1000 MG PO ×3 (08:08→20:48)
[2023-10-05] MEDS: Folic Acid 1 MG TAB PO (08:08)
[2023-10-05] MEDS: Cholecalciferol (Vitamin D3) 1,000 UNIT TAB 1000 UNITS PO (08:09)
[2023-10-05] MEDS: Omeprazole 20 MG CAPCR 40 MG PO ×2 (08:09→20:49)
[2023-10-05] MEDS: Losartan 50 MG TAB PO (08:09)
[2023-10-05] MEDS: Furosemide 40 MG TAB PO (08:09)
[2023-10-05] MEDS: Celecoxib 100 MG CAP PO ×2 (08:09→20:49)
--- NOTE | 2023-10-05 09:25 | CM.SBPSYCH ---
SB Psychosocial/Act. Assmt Social Supports PREVIOUS FUNCTIONAL STATUS/SOCIAL/FAMILY SUPPORTS:: Daniel lives alone in a single family home in [place], [place] In April he fell and fractured his femur and was hospitalized at [facility]. Daniel spend some time in rehab at [facility] and then he went to the [facility]. His plan was to discharge back home from the [facility] in a couple of weeks. Daniel has 2 adult children. His daughter Cata is his healthcare agent and DPOA. Medical History PAST MEDICAL HISTORY/PAST SURGICAL HISTORY:: 3 spinal surgeries, recent fractured femur, GI bleed, PVD, CAD
--- NOTE | 2023-10-05 09:52 | CMPROGNOTE_ITS ---
Date of service: 10/05/23 Time of Service: 09:54 Care Management Progress Note Progress Note Text Progress Note Text: Daniel has been found to have Covid so was moved into isolation. CM was unable to meet with him in person due to the precautions but was able to reach him by phone. Daniel reported that he is feeling pretty well. He has cold symptoms due to Covid but no fever or respiratory distress. Daniel continues to work with PT and is making slow, steady progress. Confinement to his room because of Covid will not allow for long distance ambulation however PT will continue to work with him in his room. . Discharge Potential Discharge Needs: PCP F/U Appt Anticipated Barriers to Discharge: Medical Status Patient/Family Education Needs: Review discharge instructions, discuss Ask Me Three Transportation: Private vehicle Plan: Daniel will likely return to the [facility] prior to discharging home, possibly with HH PT. He will follow up with his PCP and plan of care and transport with family.
[2023-10-05 11:25] LABS: Influenza A PCR Negative (Negative); Influenza B PCR Negative (Negative); RSV PCR Negative (Negative)
[2023-10-05 11:27] LABS: COVID-19 PCR Positive (Negative); Source Nasopharynx
--- NOTE | 2023-10-05 16:00 | PT.INTREAT ---
PT Notes Visit Reasons: R lower ext. pain, R knee eff. amb. dysfunction, s Inpatient Physical Therapy Treatment Note [facility] Date: 10/05/2023 PRECAUTIONS: COVID-19 positive airborne precautions SUBJECTIVE: I don't know how I got this COVID. I done my exercises twice. I now have a yeast infection both groin areas OBJECTIVE:Pt seated in bedside chair with legs down Face flushed and nasal quality to his voice. Agreeable to participate. ? PAIN: Denied pain VITALS: Monitored by nursing Therapeutic Activities (89449q3): Direct one-on-one instruction in dynamic activities to improve functional performance. ? BED MOBILITY/TRANSFERS? Sit?supine: Min assist for right lower extremity Supine?sit: Independent ? Sit-stand: SBA Stand-sit: SBA ? Bed-Chair: Standby assist with RW? Chair-bed: Standby assist with RW -Provided skilled cues and instruction on performance and technique throughout. ? GAIT? Assistive Device: RW ? Weight bearing: FWB Assist: SBA ? Distance: 50 feet x 2 with 4 turns 90 and 180 degrees including narrow spaces ? Deviation: increased forward flexion at hips, reciprocal pattern, patient demonstrates decreased clearance of shoes and declined to have shoes tightened? Therapeutic Exercises (97111x 2): Direct one-on-one instruction in therapeutic exercises to develop strength, endurance, range of motion and flexibility. ? Exercises ? Seated: BLE x 10 reps x 2 sets marching LAQ heel raises toe raises Supine: BLE x 10 reps x 2 sets Quad sets with towel roll under right knee, glutes sets, heel slides, hip abduction, hip internal rotation, short arc quads Provided skilled instruction in proper exercise performance Provided skilled manual cues to facilitate proper muscle recruitment and/or form: Facilitate terminal knee extension during quad sets and short arc quads right lower extremity; glued activation for hip abduction isolated ? ASSESSMENT:? Patient presents with new diagnosis of COVID-19 infection now in isolation room distance of ambulation reduced due to confinements of room. Despite this he demonstrated need for less assistance during transfers and ambulation's with reduction in pain report. He demonstrated impaired glutes activation for quad set/terminal knee extension in supine with noted compensatory use of glutes and hamstrings. He denied pain in supine with head of bed flat. Patient demonstrated carryover with home exercise program. He will continue to benefit from rehab to gain the necessary function to return home independently. PLAN: Continue motivational speaking to encourage progress with walking and functional transfers as well as strengthening TREATMENT CODE/TIME: Ther Act (00557) x1 ;29937a 2 [id number] DISCHARGE RECOMMENDATION: Back to the [facility] with home PT sevices once independent
[2023-10-05] MEDS: Carbidopa 25/Levodopa 100 TAB PO (20:48)
[2023-10-05] MEDS: Melatonin 3 MG TAB PO (20:49)
[2023-10-05] MEDS: hydrOXYzine HCL 25 MG TAB 50 MG PO (20:49)
[2023-10-05] MEDS: Simvastatin 40 MG TAB PO (20:49)
[2023-10-05] MEDS: traMADol 50 MG TAB PO (20:49)
[2023-10-05] MEDS: Finasteride 5 MG TAB PO (20:50)
[2023-10-05 20:58] VITALS: BP 125/57; PULSE 56; RESP 16; TEMP 36.6; O2SAT 98
[2023-10-06 07:30] VITALS: BP 130/70; PULSE 60; RESP 16; TEMP 36.3; O2SAT 96
[2023-10-06] MEDS: Acetaminophen 500 MG TAB 1000 MG PO ×3 (08:30→20:56)
[2023-10-06] MEDS: Apixaban 5 MG TAB PO ×2 (08:59→20:59)
[2023-10-06] MEDS: Celecoxib 100 MG CAP PO ×2 (08:59→20:58)
[2023-10-06] MEDS: Cholecalciferol (Vitamin D3) 1,000 UNIT TAB 1000 UNITS PO (08:59)
[2023-10-06] MEDS: Omeprazole 20 MG CAPCR 40 MG PO ×2 (08:59→20:57)
[2023-10-06] MEDS: Propranolol 10 MG TAB PO ×2 (09:00→20:56)
[2023-10-06] MEDS: Folic Acid 1 MG TAB PO (09:00)
[2023-10-06] MEDS: Furosemide 40 MG TAB PO ×2 (09:00→15:17)
[2023-10-06] MEDS: Nystatin POWDER 15 GM JAR TP ×2 (09:00→22:00)
[2023-10-06] MEDS: Losartan 50 MG TAB PO (09:00)
[2023-10-06] MEDS: Docusate Sodium 100 MG CAP PO ×2 (09:00→20:56)
[2023-10-06] MEDS: Spironolactone 25 MG TAB PO (09:01)
[2023-10-06] MEDS: Senna TAB 2 TAB PO (09:01)
--- NOTE | 2023-10-06 10:05 | W.PM.PROGNOT ---
Date of Service Date of service: 10/06/23 Time of Service: 10:05 Assessment and Plan Assessment and plan (1) Acute pain of right lower extremity: Status: Acute Assessment and plan: Imaging showing subacute fracture of the right knee with hardware in place and a small effusion -Orthopedic surgery consulted during initial part of the stay and recommendations below to be continue. -CT reviewed and compared to previous images from [facility] [place] with concern for loose femoral component that might not be obvious -WBAT -f/u in office in 2-3 weeks from 09/28 -Steroids to assist with inflammatory process-course completed -repeat imaging as needed Continue pain management with -Scheduled Tylenol - Tramadol - patient reports is helping significantly -Lidocaine patch and Diclofenac gel - Celebrex 100 mg PO BID -Steroids completed on 10/03 -effecrive (2) Ambulatory dysfunction: Status: Acute Assessment and plan: Physical therapy consult ongoing Pain medicine prior to PT (3) Hyponatremia: Assessment and plan: Na 129 on 09/30, fluid restriction 1 l. ordered today BMP in AM (4) Discharge planning issues: Status: Deleted Assessment and plan: Continue plan for swing level I rehabilitation as he is unable to safely return to assisted living Covid positive as of 10/04 w/o O2 requirement nor respiratory distress Maintain precautions Retest the day prior to discharge to [facility] Discussed with Dr. Durham Subjective Subjective Patient reports: feels better, tolerating liquids well, tolerating a regular diet, voiding w/o difficulty and flatus; denies diarrhea, vomiting, shortness of breath or fever Exam Narrative Exam Narrative: Constitutional The patient is sitting in chair comfortable without acute distress HENMT: Head is atraumatic, normocephalic. Facial structures with normal appearance Eyes: Well aligned, Neuro:alert and oriented to self, person, place time and situation. No neurological focal deficit. Resp:Clear lung bilaterally Cardio: irregular rhythm, S1, S2, murmur, trace edema to LE's GI: Abdomen is not distended, soft and non tender, bowel sounds are present : Negative Costovertebral angle tenderness Back/spine/Pelvis: No back tenderness, normal alignment Extremities: strength 5/5 to bilateral lower and upper extremities Psych: RASS 0, congruent mood and normal affect. Objective Last Vital Signs Temp 36.3 C L 10/06/23 07:30 Pulse 60 08/15/24 07:30 Resp 16 10/06/23 07:30 BP 130/70 10/06/23 07:30 Pulse Ox 96 10/06/23 07:30 Laboratory Results - last 24 hr 10/05/23 09:56 COVID-19 Source Nasopharynx SARS-CoV-2 (PCR) Positive A Influenza Type A (PCR) Negative Influenza Type B (PCR) Negative RSV (PCR) Negative Time Spent with Patient Time Spent with Patient: >50 minutes Time was spent: preparing to see the patient(eg.review tests), obtaining and/or reviewing separately otained hiistory, ordering medications,tests, procedures, referring, communicating with other health career based intervention coordinator, indepentently interpreting results, counseling the patient and care coordination
--- NOTE | 2023-10-06 14:23 | PTTR_ITS ---
PT Notes Visit Reasons: R lower ext. pain, R knee eff. amb. dysfunction, s Inpatient Physical Therapy Treatment Note [facility] Date: 10/05/2023 PRECAUTIONS: COVID-19 positive airborne precautions SUBJECTIVE: Pt reports he is very tired and feels like he has no energy. He stated he needed help to get off the commode this morning. He denies pain in his right leg. Pt also noted blurred vision and change in hearing sounds like I am in a metal tube. OBJECTIVE:Pt seated in bedside chair with legs down Face flushed and nasal quality to his voice. Nose running frequently and occasional cough. Agreeable to participate. ? PAIN: Denied pain VITALS: Monitored by nursing Therapeutic Activities (85803v5): Direct one-on-one instruction in dynamic activities to improve functional performance. ? BED MOBILITY/TRANSFERS? Sit-stand: CGA initial trial requiring 2 attempts to achieve stand; SBA x 3 trial Stand-sit: SBA ? Bed-Chair: CG assist with RW? Chair-bed: CG assist with RW -Provided skilled cues and instruction on performance and technique throughout. ? GAIT? Assistive Device: RW ? Weight bearing: FWB Assist: CGA ? Distance: 20 feet x 3 with 4 turns 90 and 180 degrees including narrow spaces ? Deviation: increased forward flexion at hips, reciprocal pattern, patient demonstrates decreased clearance of shoes and declined to have shoes tightened? Therapeutic Exercises (13747w 1): Direct one-on-one instruction in therapeutic exercises to develop strength, endurance, range of motion and flexibility. ? Exercises ? Seated: BLE x 10 reps x 2 sets marching, LAQ, heel raises toe raises, heel slides Standing marching x 10 x 2 sets, double limb heel raises x 10 Provided skilled instruction in proper exercise performance Provided skilled manual cues to facilitate proper muscle recruitment and/or form: Facilitate terminal knee extension during quad sets and short arc quads right lower extremity; glued activation for hip abduction isolated ? ASSESSMENT:? Patient demonstrating increased fatigue this session. He demonstrates SOB/ATKINSON with short distance ambulation with spontaneous cough noted. He demonstrates increase need for assist during dynamic stance with slight sway noted during standing tasks. Patient required more frequent seated rest as compared to prior sessions. He will continue to benefit from rehab to g thelman the necessary function to return home independently. PLAN: Continue with strengthening BLE, transfer, balance and ambulation TREATMENT CODE/TIME: 32426 x2 / 24 mins ;28541 x 1( 15 mins) [id number] DISCHARGE RECOMMENDATION: Back to the [facility] with home PT sevices once independent
[2023-10-06 19:10] VITALS: BP 114/60; PULSE 75; RESP 20; TEMP 36.6; O2SAT 97
[2023-10-06] MEDS: Simvastatin 40 MG TAB PO (20:56)
[2023-10-06] MEDS: Melatonin 3 MG TAB PO (20:57)
[2023-10-06] MEDS: Carbidopa 25/Levodopa 100 TAB PO (20:57)
[2023-10-06] MEDS: Finasteride 5 MG TAB PO (20:57)
[2023-10-06] MEDS: hydrOXYzine HCL 25 MG TAB 50 MG PO (20:58)
[2023-10-06] MEDS: traMADol 50 MG TAB PO (20:59)
[2023-10-07 06:59] LABS: Abs Immature Grans 0.05 10^3/uL (0.0-0.06); Absolute Basophil Count 0.03 10^3/uL (0.0-0.2); Absolute Eosinophil Count 0.06 10^3/uL (0.0-0.7); Absolute Lymphocyte Count 0.83 10^3/uL (1.2-3.4); Absolute Monocyte Count 0.83 10^3/uL (0.1-0.8); Basophils % 0.4 %; Eosinophils % 0.7 %; HGB 13.9 g/dL (13.5-17.5); Immature Grans % 0.6 %; Lymphocytes % 9.8 %; MCH 30.5 pg (27.0-33.0); MCHC 33.9 % (32.0-36.0); MCV 90 fL (80-95); MPV 10.2 fL (8.0-11.0); Monocytes % 9.8 %; Neutrophils % 78.7 %; Platelet Count 136 10^3/uL (130-400); RBC 4.55 10^6/uL (4.36-5.78); RDW 14.9 % (11.8-14.1); RDW-SD 49.4 fL; WBC 8.49 10^3/uL (4.4-10.8)
[2023-10-07 07:14] LABS: Anion Gap 7.8 mmol/L (3-11); BUN 43 mg/dL (7-18); CO2 27.2 mmol/L (21.0-32.0); CREATININE 1.4 mg/dL (0.70-1.30); Calcium 8.7 mg/dL (8.5-10.1); Chloride 93 mmol/L (98-107); Estimated GFR 49.56 (mL/min/1.73m2); Glucose 86 mg/dL (74-106); Potassium 4.8 mmol/L (3.5-5.1); Sodium 128 mmol/L (136-145)
[2023-10-07 07:17] LABS: Absolute Neutrophil Count 6.68 10^3/uL (1.2-6.7)
[2023-10-07 07:54] VITALS: BP 130/66; PULSE 64; RESP 16; TEMP 37.9; O2SAT 95
[2023-10-07] MEDS: Omeprazole 20 MG CAPCR 40 MG PO ×2 (08:18→19:37)
[2023-10-07] MEDS: Celecoxib 100 MG CAP PO ×2 (08:18→19:38)
[2023-10-07] MEDS: Spironolactone 25 MG TAB PO (08:18)
[2023-10-07] MEDS: Cholecalciferol (Vitamin D3) 1,000 UNIT TAB 1000 UNITS PO (08:18)
[2023-10-07] MEDS: Docusate Sodium 100 MG CAP PO (08:18)
[2023-10-07] MEDS: Propranolol 10 MG TAB PO ×2 (08:19→19:38)
[2023-10-07] MEDS: Acetaminophen 500 MG TAB 1000 MG PO ×3 (08:19→19:37)
[2023-10-07] MEDS: Furosemide 40 MG TAB PO ×2 (08:19→15:30)
[2023-10-07] MEDS: Losartan 50 MG TAB PO (08:19)
[2023-10-07] MEDS: Apixaban 5 MG TAB PO ×2 (08:19→19:37)
[2023-10-07] MEDS: Folic Acid 1 MG TAB PO (08:19)
[2023-10-07] MEDS: Senna TAB 2 TAB PO (08:19)
[2023-10-07] MEDS: Nystatin POWDER 15 GM JAR TP (08:20)
--- NOTE | 2023-10-07 09:41 | PGE_ITS ---
Date of Service Date of service: 10/07/23 Time of Service: 09:41 Assessment and Plan Assessment and plan (1) Acute pain of right lower extremity: Status: Acute Assessment and plan: Imaging showing subacute fracture of the right knee with hardware in place and a small effusion -Orthopedic surgery consulted during initial part of the stay and recommendations below to be continue. -CT reviewed and compared [place] [facility] [place] concern for loose femoral component that might not be obvious -WBAT -f/u in office in 2-3 weeks from 09/28 -Steroids to assist with inflammatory process-course completed -repeat imaging as needed Continue pain management with -Scheduled Tylenol - Tramadol - patient reports is helping significantly -Lidocaine patch and Diclofenac gel - Celebrex 100 mg PO BID -Steroids completed on 10/03 -effecrive (2) Ambulatory dysfunction: Status: Acute Assessment and plan: Physical therapy consult ongoing Pain medicine prior to PT (3) Hyponatremia: Assessment and plan: Na 128 fluid restriction 1500 ml today BMP in AM (4) Discharge planning issues: Status: Deleted Assessment and plan: Continue plan for swing level I rehabilitation as he is unable to safely return to assisted living Covid positive as of 10/04 w/o O2 requirement nor respiratory distress Maintain precautions Initiating remdesevir bolus dose and considering outpatient protocol ( 3 days) VS X5 days of infusion -Positive Risk factors: Oral steroids, HTN, BMI 33.9, age > 80 ( 83), CAD, ASCVD, sedentarity -Negative risk factors : No lung, liver, immunologic/compromise diseases, CVA, HIV, tobacco,DM,neurologic conditions - Will hold off at this time and continue to monitor. PRN chloraseptic for sore throat Retest the day prior to discharge to [facility] Discussed with Dr. Durham Subjective Subjective Interval history since last seen: Main progress notes done 10/05 Objective Last Vital Signs Temp 37.9 C H 10/07/23 07:54 Pulse 64 10/07/23 07:54 Resp 16 10/07/23 07:54 BP 130/66 10/07/23 07:54 Pulse Ox 95 10/07/23 07:54 Laboratory Results - last 24 hr 10/07/23 06:27 WBC 8.49 RBC 4.55 Hgb 13.9 Hct 41.0 MCV 90 MCH 30.5 MCHC 33.9 RDW 14.9 H Plt Count 136 MPV 10.2 Immature Gran % 0.6 Neutrophils % 78.7 Lymphocytes % 9.8 Monocytes % 9.8 Eosinophils % 0.7 Basophils % 0.4 Nucleated RBC % 0.0 Absolute Neutrophils 6.68 Absolute Lymphocytes 0.83 L Absolute Monocytes 0.83 H Absolute Eosinophils 0.06 Absolute Basophils 0.03 Sodium 128 L Potassium 4.8 Chloride 93 L Carbon Dioxide 27.2 Anion Gap 7.8 BUN 43 H Creatinine 1.4 H Est GFR (CKD-EPI 2020) 49.56 Glucose 86 Calcium 8.7 Time Spent with Patient Time Spent with Patient: >50 minutes Time was spent: preparing to see the patient(eg.review tests), obtaining and/or reviewing separately otained hiistory, ordering medications,tests, procedures, referring, communicating with other health pediatric care coordinator, indepentently interpreting results, counseling the patient and care coordination
[2023-10-07] MEDS: Normal Saline Flush 10 ML SYR IVP (10:47)
[2023-10-07] MEDS: REMDESIVIR 200 MG in Normal Saline 250 ML 250 MG IVPB (10:47)
--- NOTE | 2023-10-07 11:18 | PT.INTREAT ---
PT Notes Visit Reasons: R lower ext. pain, R knee eff. amb. dysfunction, s Inpatient Physical Therapy Progress Note Date: [] Dates of Service: [] PRECAUTIONS: [] SUBJECTIVE: [] OBJECTIVE PAIN: [] BED MOBILITY/TRANSFERS Rolling L/R: [] Supine-sit: [] Sit-supine: [] Sit-stand: [] Stand-sit: [] Bed-Chair: [] Chair-bed: [] GAIT Assistive Device: [] Weight bearing: [] Assist: [] Distance: [] Deviation: [] VITALS: [] THEREX: [] STAIRS: [] ASSESSMENT: Patient is a [] year old [] referred to physical therapy services with diagnosis of [] Patient presents with clinical signs and symptoms consistent with [] as demonstrated by the following impairment level findings []. Impairments are contributing to the following functional limitations: AMPAC score Patient is assessed as a Moderate 14344 complexity based on the following: o History: [] o Examination: [] o Presentation: [] o Decision Making: [] GOALS Goals x1 week 1. Supine-sit 2. Sit-Supine 3. Sit-Stand 4. Stand-sit 5. Bed-chair 6. Chair-bed 7. Gait 8. 9. I with home exercise program 10. Balance PLAN OF CARE/TREATMENT PLAN: 1-2x/day, 7 days/ week x 1 week Plan of care has been reviewed with the EXHIBITION CARVER providing the service under Physical therapy direction. Initiate physical therapy intervention for strengthening, bed mobility, transfers, gait, stairs, balance training, use of assistive device. DISCHARGE RECOMMENDATIONS: Home with HH PT when medically able TREATMENT CODE/TIME: 88685c5/ 11 mins; 25632i 1 14 mins [id number]
--- NOTE | 2023-10-07 11:24 | INPN_ITS ---
PT Notes Visit Reasons: R lower ext. pain, R knee eff. amb. dysfunction, s Inpatient Physical Therapy Progress Note Date: 10/07/2023 Dates of Service:09/30/2023 through 10/07/2023 PRECAUTIONS: COVID (+) SUBJECTIVE: They started me on IV antiviral today. I have no energy and my legs feel weak when I am getting up. My throat is so sore. OBJECTIVE Pt presents with flushed face, positive cough. PAIN: denies BED MOBILITY/TRANSFERS Rolling L/R:CGA with rails Supine-sit:CGA Sit-supine: min A for LEs Sit-stand:CGA with 2 attempts Stand-sit: CGA Bed-Chair:CGA Chair-bed: CGA GAIT Assistive Device: RW Weight bearing: full Assist: CGA Distance: 50 feet Deviation: lateral weight shift to advance LE, forward flexed posture requiring cues for upright VITALS:130/66 RR 16 pulse 64 THEREX: seated therex LAQ, marching, Ankle pump with knee extension, standing marching x 10 reps ASSESSMENT: Patient is a 83 year old male referred to physical therapy services with diagnosis of Right LE pain Patient was demonstrating significant improvement in his ability to perform bed mobility, transfers and ambulation without pain at SBA level until new DX of COVID-SARS on 10/05/2023. Since then he has demonstrated a decline in function to CGA with fatigue, decreased functional activity tolerance and BLE instability in standing. Pt no longer reports pain however has had reduction in distance of ambulation with increased ATKINSON/SOB with productive cough. Pt limited to his room d/t precautions . Patient is assessed as a Moderate 65974 complexity based on the following: o History: Pt is 83yo male with new COVID-SARS diagnosis limiting his functional abilitites and balance o Examination: see above o Presentation: evolving o Decision Making: good GOALS Goals x1 week 1. supine-sit: supervision [met] 2. sit-supine: supervision [notmet] 3. sit-stand: supervision[NOT MET] 4. stand-sit: supervision [NOT MET] 4. Able to ambulate 50' with FWW and supervision [NOT MET] PLAN OF CARE/TREATMENT PLAN: 1-2x/day, 7 days/ week x 1 week Plan of care has been reviewed with the HEATING UNIT MECHANIC providing the service under Physical therapy direction. Initiate physical therapy intervention for strengthening, bed mobility, transfers, gait, stairs, balance training, use of assistive device. DISCHARGE RECOMMENDATIONS: Return to [facility] with Home Health PT services when medically able TREATMENT CODE/TIME: 24927 x1/ 35264m 1 0396- 8872
[2023-10-07 14:26] VITALS: BP 105/63; PULSE 60; RESP 18; TEMP 36.4; O2SAT 98
[2023-10-07] MEDS: Chloraseptic Spray 117 ML BTL MM ×2 (15:31→19:36)
[2023-10-07 19:30] VITALS: BP 114/60; PULSE 62; RESP 20; TEMP 36.2; O2SAT 94
[2023-10-07] MEDS: Carbidopa 25/Levodopa 100 TAB PO (19:37)
[2023-10-07] MEDS: Simvastatin 40 MG TAB PO (19:37)
[2023-10-07] MEDS: hydrOXYzine HCL 25 MG TAB 50 MG PO (19:38)
[2023-10-07] MEDS: Finasteride 5 MG TAB PO (19:38)
[2023-10-07] MEDS: Melatonin 3 MG TAB PO (19:39)
[2023-10-07] MEDS: traMADol 50 MG TAB PO (19:39)
[2023-10-08 07:12] LABS: Anion Gap 10.1 mmol/L (3-11); BUN 40 mg/dL (7-18); CO2 23.9 mmol/L (21.0-32.0); CREATININE 1.2 mg/dL (0.70-1.30); Calcium 8.5 mg/dL (8.5-10.1); Chloride 96 mmol/L (98-107); Estimated GFR 59.63 (mL/min/1.73m2); Glucose 81 mg/dL (74-106); Potassium 4.6 mmol/L (3.5-5.1); Sodium 130 mmol/L (136-145)
[2023-10-08 07:49] VITALS: BP 117/76; PULSE 67; RESP 17; TEMP 36; O2SAT 96
[2023-10-08] MEDS: Acetaminophen 500 MG TAB 1000 MG PO ×3 (08:39→19:36)
[2023-10-08] MEDS: Senna TAB 2 TAB PO (08:40)
[2023-10-08] MEDS: Apixaban 5 MG TAB PO ×2 (08:41→19:37)
[2023-10-08] MEDS: Omeprazole 20 MG CAPCR 40 MG PO ×2 (08:41→19:37)
[2023-10-08] MEDS: Furosemide 40 MG TAB PO ×2 (08:42→16:35)
[2023-10-08] MEDS: Docusate Sodium 100 MG CAP PO ×2 (08:42→19:38)
[2023-10-08] MEDS: Celecoxib 100 MG CAP PO ×2 (08:42→19:37)
[2023-10-08] MEDS: Propranolol 10 MG TAB PO ×2 (08:42→19:37)
[2023-10-08] MEDS: Losartan 50 MG TAB PO (08:43)
[2023-10-08] MEDS: Folic Acid 1 MG TAB PO (08:43)
[2023-10-08] MEDS: Cholecalciferol (Vitamin D3) 1,000 UNIT TAB 1000 UNITS PO (08:43)
[2023-10-08] MEDS: Spironolactone 25 MG TAB PO (08:43)
[2023-10-08] MEDS: Polyethylene Glycol 3350 17 GM PACKET PO (08:44)
[2023-10-08] MEDS: Normal Saline Flush 10 ML SYR IVP ×2 (08:44→19:36)
[2023-10-08] MEDS: Diclofenac 1% Gel 100 GM TUBE TP ×3 (08:45→16:35)
[2023-10-08] MEDS: Nystatin POWDER 15 GM JAR TP ×2 (08:45→21:40)
[2023-10-08] MEDS: Chloraseptic Spray 117 ML BTL MM (08:53)
--- NOTE | 2023-10-08 11:07 | PT.INTREAT ---
PT Notes Visit Reasons: R lower ext. pain, R knee eff. amb. dysfunction, s Inpatient Physical Therapy Treatment Note [facility] Date: 10/08/2023 PRECAUTIONS: COVID-19 positive airborne precautions SUBJECTIVE: Daniel is looking forward to walking today. States that he's been trying to work on his chair exercises but often forgets. He continues to struggle with sore throat, runny nose and fatigue. OBJECTIVE:Pt seated in bedside chair with legs down Face flushed and nasal quality to his voice. Nose running frequently and occasional cough. Agreeable to participate. ? PAIN: Denied pain VITALS: Monitored by nursing Therapeutic Activities (24143y0): Direct one-on-one instruction in dynamic activities to improve functional performance. ? BED MOBILITY/TRANSFERS? Sit-stand: CGA initially, improving to SBA throughtout session. Performed 10 reps in total, with cues for hinging hips and pushing from bed/chair Stand-sit: SBA ? Bed-Chair: SBA assist with RW? Chair-commode: SBA assist with RW -Provided skilled cues and instruction on performance and technique throughout. ? GAIT? Assistive Device: RW ? Weight bearing: FWB Assist: CGA ? Distance: 40 feet x 2 with 4 turns 90 and 180 degrees including narrow spaces ? Deviation: increased forward flexion at hips, reciprocal pattern, cues for keeping close to FWW? Therapeutic Exercises (39679j 1): Direct one-on-one instruction in therapeutic exercises to develop strength, endurance, range of motion and flexibility. ? Exercises ? Seated: reviewed seated exercises provided by Meagan Finney PT earlier this week. Add seated punches with trunk rotation, no back support, 10x Standing: marching x 10x with bilat UE support standing forward punch, no UE support, 10x2 sets standing stretch for back extension to neutral 3x standing trunk rotation with bilat UE support 3x Provided skilled instruction in proper exercise performance Provided skilled manual cues to facilitate proper muscle recruitment and/or form ? ASSESSMENT:? Improving independence with gait and transfers. PLAN: Continue with strengthening BLE, transfer, balance and ambulation TREATMENT CODE/TIME: 0692-5242 (44228, 14774) DISCHARGE RECOMMENDATION: Back to the [facility] with home PT sevices once independent
[2023-10-08 16:35] VITALS: BP 111/61; PULSE 56; RESP 18; TEMP 36.2; O2SAT 97
[2023-10-08] MEDS: Simvastatin 40 MG TAB PO (19:37)
[2023-10-08] MEDS: Carbidopa 25/Levodopa 100 TAB PO (19:37)
[2023-10-08] MEDS: Finasteride 5 MG TAB PO (19:37)
[2023-10-08] MEDS: Melatonin 3 MG TAB PO (19:37)
[2023-10-08] MEDS: hydrOXYzine HCL 25 MG TAB 50 MG PO (19:37)
[2023-10-09 07:25] LABS: Anion Gap 7.5 mmol/L (3-11); BUN 43 mg/dL (7-18); CO2 26.5 mmol/L (21.0-32.0); CREATININE 1.2 mg/dL (0.70-1.30); Calcium 8.6 mg/dL (8.5-10.1); Chloride 97 mmol/L (98-107); Estimated GFR 59.63 (mL/min/1.73m2); Glucose 83 mg/dL (74-106); Potassium 4.5 mmol/L (3.5-5.1); Sodium 131 mmol/L (136-145)
[2023-10-09] MEDS: Losartan 50 MG TAB PO (07:57)
[2023-10-09] MEDS: Polyethylene Glycol 3350 17 GM PACKET PO (07:57)
[2023-10-09] MEDS: Apixaban 5 MG TAB PO ×2 (07:57→20:21)
[2023-10-09] MEDS: Omeprazole 20 MG CAPCR 40 MG PO ×2 (07:57→20:21)
[2023-10-09] MEDS: Folic Acid 1 MG TAB PO (07:58)
[2023-10-09] MEDS: Furosemide 40 MG TAB PO ×2 (07:58→14:07)
[2023-10-09] MEDS: Cholecalciferol (Vitamin D3) 1,000 UNIT TAB 1000 UNITS PO (07:58)
[2023-10-09] MEDS: Acetaminophen 500 MG TAB 1000 MG PO ×3 (07:58→20:20)
[2023-10-09] MEDS: Senna TAB 2 TAB PO (07:58)
[2023-10-09] MEDS: Docusate Sodium 100 MG CAP PO ×2 (07:58→20:20)
[2023-10-09] MEDS: Celecoxib 100 MG CAP PO ×2 (07:59→20:24)
[2023-10-09] MEDS: Spironolactone 25 MG TAB PO (07:59)
[2023-10-09 08:12] VITALS: BP 113/67; PULSE 56; RESP 16; TEMP 36.3; O2SAT 96
[2023-10-09] MEDS: Normal Saline Flush 10 ML SYR IVP ×2 (08:14→20:39)
[2023-10-09] MEDS: Nystatin POWDER 15 GM JAR TP ×2 (09:39→23:18)
--- NOTE | 2023-10-09 10:03 | PT.INTREAT ---
PT Notes Visit Reasons: R lower ext. pain, R knee eff. amb. dysfunction, s Inpatient Physical Therapy Treatment Note [facility] Date: 10/09/2023 PRECAUTIONS: COVID-19 positive airborne precautions SUBJECTIVE: Daniel states that he has been working on his chair exercises between PT sessions. OBJECTIVE:Pt seated in bedside chair with legs down Face flushed and nasal quality to his voice. Nose running frequently and occasional cough. Agreeable to participate. ? PAIN: Denied pain VITALS: Monitored by nursing Therapeutic Activities (05920o0): Direct one-on-one instruction in dynamic activities to improve functional performance. ? BED MOBILITY/TRANSFERS? Sit-stand: SBA with bilat UE support to arm rests. Performed 10 reps in total, with cues for hinging hips and pushing from bed/chair Stand-sit: SBA ? -Provided skilled cues and instruction on performance and technique throughout. ? GAIT? Assistive Device: RW ? Weight bearing: FWB Assist: CGA for first rep; SBA second ? Distance: 60 feet x 2 with 4 turns 90 and 180 degrees including narrow spaces ? Deviation: increased forward flexion at hips, reciprocal pattern, cues for keeping close to FWW? Therapeutic Exercises (76711k 1): Direct one-on-one instruction in therapeutic exercises to develop strength, endurance, range of motion and flexibility. ? Exercises ? Seated: reviewed seated exercises provided by Meagan Finney PT earlier this week. Add seated punches with trunk rotation, no back support, 10x Standing: marching x 10x with bilat UE support standing shoulder flexion, no UE support, 10x2 sets standing stretch for back extension to neutral 3x standing HR 10x standing hip AB 10x chair crunches 10x reclined SLR 10x each side Provided skilled instruction in proper exercise performance Provided skilled manual cues to facilitate proper muscle recruitment and/or form ? ASSESSMENT:? Improving independence with gait and transfers. Remains very motivated to participate in PT intervention. PLAN: Continue with strengthening BLE, transfer, balance and ambulation TREATMENT CODE/TIME: 9685-3598 (08280, 35807) DISCHARGE RECOMMENDATION: Back to the [facility] with home PT sevices once independent
[2023-10-09] MEDS: REMDESIVIR 100 MG in Normal Saline 250 ML 250 MG IVPB (14:08)
[2023-10-09] MEDS: Finasteride 5 MG TAB PO (20:21)
[2023-10-09] MEDS: Melatonin 3 MG TAB PO (20:21)
[2023-10-09] MEDS: Carbidopa 25/Levodopa 100 TAB PO (20:22)
[2023-10-09] MEDS: hydrOXYzine HCL 25 MG TAB 50 MG PO (20:23)
[2023-10-09] MEDS: Simvastatin 40 MG TAB PO (20:23)
[2023-10-10 07:39] VITALS: BP 133/80; PULSE 64; RESP 16; TEMP 36.3; O2SAT 96
[2023-10-10] MEDS: Losartan 50 MG TAB PO (07:56)
[2023-10-10] MEDS: Docusate Sodium 100 MG CAP PO ×2 (07:56→22:18)
[2023-10-10] MEDS: Polyethylene Glycol 3350 17 GM PACKET PO (07:56)
[2023-10-10] MEDS: Normal Saline Flush 10 ML SYR IVP (07:56)
[2023-10-10] MEDS: Propranolol 10 MG TAB PO (07:57)
[2023-10-10] MEDS: Cholecalciferol (Vitamin D3) 1,000 UNIT TAB 1000 UNITS PO (07:57)
[2023-10-10] MEDS: Senna TAB 2 TAB PO (07:57)
[2023-10-10] MEDS: Folic Acid 1 MG TAB PO (07:57)
[2023-10-10] MEDS: Acetaminophen 500 MG TAB 1000 MG PO ×3 (07:57→22:17)
[2023-10-10] MEDS: Celecoxib 100 MG CAP PO ×2 (07:57→22:18)
[2023-10-10] MEDS: Apixaban 5 MG TAB PO ×2 (07:57→22:18)
[2023-10-10] MEDS: Furosemide 40 MG TAB PO ×2 (07:57→15:14)
[2023-10-10] MEDS: Spironolactone 25 MG TAB PO (07:57)
[2023-10-10] MEDS: Omeprazole 20 MG CAPCR 40 MG PO ×2 (07:57→22:16)
[2023-10-10] MEDS: Nystatin POWDER 15 GM JAR TP ×2 (07:58→22:19)
[2023-10-10] MEDS: Lidocaine 5% Patch 1 PATCH TP (10:00)
--- NOTE | 2023-10-10 15:11 | PT.INTREAT ---
PT Notes Visit Reasons: R lower ext. pain, R knee eff. amb. dysfunction, s Inpatient Physical Therapy Treatment Note [facility] Date: 10/10/2023 PRECAUTIONS: COVID-19 positive airborne precautions SUBJECTIVE: Daniel states he did one set of his chair exercises already today OBJECTIVE:Pt seated in bedside chair with legs down.No cough with intermittent runny zena. Agreeable to participate. ? PAIN: Denied pain VITALS: Monitored by nursing Therapeutic Activities (38904z9): Direct one-on-one instruction in dynamic activities to improve functional performance. ? BED MOBILITY/TRANSFERS? Sit-stand: SBA with bilat UE support to arm rests. Pt required no cues this session Stand-sit: SBA without cues ? -Provided skilled cues and instruction on performance and technique throughout. ? GAIT? Assistive Device: RW ? Weight bearing: FWB Assist: ; SBA ? Distance: 60 feet x 2 with 4 turns 90 and 180 degrees including narrow spaces ? Deviation: increased forward flexion at hips, reciprocal pattern, cues for keeping close to FWW? Therapeutic Exercises (03099k 1): Direct one-on-one instruction in therapeutic exercises to develop strength, endurance, range of motion and flexibility. ? Exercises ? Seated: reviewed seated exercises provided by Meagan Finney, PT earlier this week. Add seated punches with trunk rotation, no back support, 10x Added seated with legs elevated Hip IR and SLR Provided skilled instruction in proper exercise performance Provided skilled manual cues to facilitate proper muscle recruitment and/or form ? ASSESSMENT:? Pt demonstrates improvement with transfers and ambulation independence. He no longer has pain during stand to sit and no longer needs to slide his right LE forward prior to sitting PLAN: Continue with strengthening BLE, transfer, balance and ambulation TREATMENT CODE/TIME: 9383-3097 (01543, 91495) DISCHARGE RECOMMENDATION: Back to the [facility] with home PT sevices once independent
[2023-10-10] MEDS: REMDESIVIR 100 MG in Normal Saline 250 ML 250 MG IVPB (15:12)
[2023-10-10] MEDS: Carbidopa 25/Levodopa 100 TAB PO (22:17)
[2023-10-10] MEDS: Finasteride 5 MG TAB PO (22:17)
[2023-10-10] MEDS: hydrOXYzine HCL 25 MG TAB 50 MG PO (22:17)
[2023-10-10] MEDS: Melatonin 3 MG TAB PO (22:18)
[2023-10-10] MEDS: Simvastatin 40 MG TAB PO (22:18)
[2023-10-10 22:26] VITALS: BP 120/64; PULSE 58; RESP 15; TEMP 36.3; O2SAT 96
--- NOTE | 2023-10-11 07:38 | PTTR_ITS ---
PT Notes Visit Reasons: R lower ext. pain, R knee eff. amb. dysfunction, s Inpatient Physical Therapy Treatment Note [facility] Date: 10/11/2023 PRECAUTIONS: COVID-19 positive airborne precautions SUBJECTIVE: Daniel states he is feeling a little better today in terms of his COVID symptoms. OBJECTIVE:Pt seated in bedside chair with legs down.No cough with intermittent runny zena. Agreeable to participate. ? VITALS: Monitored by nursing Therapeutic Activities (87365g4): Direct one-on-one instruction in dynamic activities to improve functional performance. ? BED MOBILITY/TRANSFERS? Sit-stand: supervision with bilat UE support to arm rests. Pt required no cues this session Stand-sit: supervision without cues ? Therapeutic Exercises (02350w 2): Direct one-on-one instruction in therapeutic exercises to develop strength, endurance, range of motion and flexibility. ? Exercises ? Seated: LAQ 10x Standing: sit to stand x 3 HR 10x with bilat UE support partial tandem stance 20 seconds each, CGA ,no UE support april 1 minute, bilat UE support standing trunk rotation 2 reps; patient describes thigh and medial joint line pain on second rep. This was discontinued. Pain alleviated in sitting position. Provided skilled instruction in proper exercise performance Provided skilled manual cues to facilitate proper muscle recruitment and/or form ? GAIT? Assistive Device: RW ? Weight bearing: FWB Assist: ; supervision ? Distance: 120 feet x 1, turning 180* and navigating obstacles? Deviation: increased forward flexion at hips, reciprocal pattern. No loss of balance. ? ASSESSMENT:? Significant improvements in safety and activity tolerance, now ambulating 120' with FWW and supervision only. Had brief increase in LE pain with small excursion trunk rotation; remains very anxious about return of pain. PLAN: Continue with strengthening BLE, transfer, balance and ambulation TREATMENT CODE/TIME: 4596-0402 ([id number]) DISCHARGE RECOMMENDATION: Back to the [facility] with home PT sevices once independent
[2023-10-11 08:06] VITALS: BP 119/63; PULSE 75; RESP 18; TEMP 36.7; O2SAT 95
[2023-10-11] MEDS: Acetaminophen 500 MG TAB 1000 MG PO ×3 (09:33→20:29)
[2023-10-11] MEDS: Docusate Sodium 100 MG CAP PO ×2 (09:33→20:30)
[2023-10-11] MEDS: Cholecalciferol (Vitamin D3) 1,000 UNIT TAB 1000 UNITS PO (09:33)
[2023-10-11] MEDS: Omeprazole 20 MG CAPCR 40 MG PO ×2 (09:33→20:28)
[2023-10-11] MEDS: Celecoxib 100 MG CAP PO ×2 (09:33→20:29)
[2023-10-11] MEDS: Senna TAB 2 TAB PO (09:33)
[2023-10-11] MEDS: Propranolol 10 MG TAB PO ×2 (09:33→20:30)
[2023-10-11] MEDS: Apixaban 5 MG TAB PO ×2 (09:34→20:28)
[2023-10-11] MEDS: Folic Acid 1 MG TAB PO (09:34)
[2023-10-11] MEDS: Nystatin POWDER 15 GM JAR TP ×2 (09:34→20:31)
[2023-10-11] MEDS: Spironolactone 25 MG TAB PO (09:34)
[2023-10-11] MEDS: Furosemide 40 MG TAB PO ×2 (09:34→14:45)
[2023-10-11] MEDS: Losartan 50 MG TAB PO (09:34)
[2023-10-11] MEDS: Normal Saline Flush 10 ML SYR IVP ×2 (09:34→20:27)
[2023-10-11] MEDS: Polyethylene Glycol 3350 17 GM PACKET PO (09:35)
[2023-10-11 15:00] VITALS: BP 100/62; PULSE 62; RESP 18; TEMP 36.8; O2SAT 95
[2023-10-11 20:10] VITALS: BP 110/62; PULSE 61; RESP 18; TEMP 36; O2SAT 96
[2023-10-11] MEDS: Carbidopa 25/Levodopa 100 TAB PO (20:28)
[2023-10-11] MEDS: Simvastatin 40 MG TAB PO (20:28)
[2023-10-11] MEDS: Melatonin 3 MG TAB PO (20:28)
[2023-10-11] MEDS: hydrOXYzine HCL 25 MG TAB 50 MG PO (20:29)
[2023-10-11] MEDS: Finasteride 5 MG TAB PO (20:30)
[2023-10-12 07:29] VITALS: BP 130/77; PULSE 66; RESP 19; TEMP 36; O2SAT 95
[2023-10-12] MEDS: Polyethylene Glycol 3350 17 GM PACKET PO (08:19)
[2023-10-12] MEDS: Normal Saline Flush 10 ML SYR IVP (08:20)
[2023-10-12] MEDS: Acetaminophen 500 MG TAB 1000 MG PO (08:20)
[2023-10-12] MEDS: Folic Acid 1 MG TAB PO (08:20)
[2023-10-12] MEDS: Senna TAB 2 TAB PO (08:20)
[2023-10-12] MEDS: Furosemide 40 MG TAB PO (08:20)
[2023-10-12] MEDS: Apixaban 5 MG TAB PO (08:21)
[2023-10-12] MEDS: Cholecalciferol (Vitamin D3) 1,000 UNIT TAB 1000 UNITS PO (08:21)
[2023-10-12] MEDS: Omeprazole 20 MG CAPCR 40 MG PO (08:21)
[2023-10-12] MEDS: Spironolactone 25 MG TAB PO (08:21)
[2023-10-12] MEDS: Celecoxib 100 MG CAP PO (08:21)
[2023-10-12] MEDS: Losartan 50 MG TAB PO (08:22)
[2023-10-12] MEDS: Docusate Sodium 100 MG CAP PO (08:22)
[2023-10-12] MEDS: Propranolol 10 MG TAB PO (08:23)
[2023-10-12] MEDS: Nystatin POWDER 15 GM JAR TP (09:51)
--- NOTE | 2023-10-12 12:00 | PDOC.CMDIS ---
Date of service: 10/12/23 Time of Service: 12:00 LACE Index Scoring Tool Questions: Length of Stay (in days): 14 or more Was the patient admitted via the E.D.?: Yes Comorbidities: PVD E.D. Visits: 1 Answers: Total Score: 12 Risk of Readmission: High Risk Care Management Discharge Plan Reason for Hospitalization: painful knee Discharge Plan: sundar will be discharged back to the [facility] with new home health services for PT. He will follow up with his community providers and transport with his daughter. Patient/Family Education Needs: review of discharge instructions, activity, limitations, follow up plan, discuss Ask Me Three Services Needed at Discharge: Physical Therapy SDOH Health Related Social Needs: Health related social needs risk of homeless
--- NOTE | 2023-10-12 12:31 | DSE_ITS ---
Date of service: 10/12/23 Time of Service: 12:36 DS: Diagnosis Discharge Diagnosis (1) Acute pain of right lower extremity: Status: Acute (2) Ambulatory dysfunction: Status: Acute (3) Hyponatremia: (4) Discharge planning issues: Status: Deleted Discharge Plan Disposition Patient Disposition: Home Condition: Improving Discharge Details Reason For Visit: R lower ext. pain, R knee eff. amb. dysfunction, s Admit Date/Time: 09/29/23 12:55 Admit Provider: Wendie Sumner Attending Provider: Wendie Sumner Primary Care Provider: Riccardo [facility] Course Hospital Course: 83-year-old male patient with a past medical history of right lower extremity femoral fracture and knee replacement at [facility] presented on 09/25/2023 to the ED at [facility] for evaluation of right leg pain. Acute onset of right leg pain following physical therapy exercises and range of motion activities. Patient described hearing a ?pop? and experiencing severe pain behind the right knee, radiating up to the lower back. Denied falls and reported an inability to walk. Past Medical History: * Right lower extremity femoral fracture * Total knee replacement at [facility] * Atrial fibrillation - on Apixaban * Congestive heart failure - on furosemide * Parkinson's - on Carbidopa-Levodopa * Hypertension - on Losartin, Amlodipine, Spironolactone Clinical Findings: * ED Evaluation: X-ray indicated possible lucency and a small effusion in the right knee. * CT Scan: No evidence of acute fracture or significant changes in the status of the right knee or femoral shaft. * Orthopedic Consultation: No major significant differences compared to previous images. No acute issues identified requiring urgent intervention. Hospital Course: * Initial Management: Celebrex and Ultram were administered for pain control. A knee immobilizer was initially recommended for stabilization and later discontinued. * Further Consultation: Dr. Lee discussed the case with the trauma surgeon at [facility]. The possibility of acute loosening of the right knee was considered but deemed unlikely. It was suggested that symptoms might be due to soft tissue inflammation from IT band and popliteus tendon impingement, rather than structural damage. Physical Therapy: Home health physical therapy has been requested Plan: * Medication: Continue with a course of steroids to manage inflammation. * Follow-Up: Regular reassessment by orthopedic and rehabilitation teams. * Rehabilitation: Transition to home health PT for further evaluation and physical therapy to improve mobility and manage pain. Patient Status: DNR/DNI (Do Not Resuscitate/Do Not Intubate) Recommendations: * Continue physical therapy * Reassess in a few weeks if no significant improvement is observed. Discharge Instructions: * Monitor for any new or worsening symptoms. * Adhere to the prescribed medication regimen. * Engage in physical therapy as directed by the PT team. Disposition: Return to [facility] with home health physical therapy. Patient is stable. Home Meds and New Rx's Prescriptions: New furosemide 40 mg Tablet 40 mg PO DAILY Qty: 30 0RF diclofenac sodium 3 % Gel 1 applic topical QID Qty: 100 0RF polyethylene glycol 3350 17 gram Powder In Packet 17 g PO DAILY Qty: 30 0RF lidocaine 5 % Adhesive Patch,Medicated 1 patch topical Q24H PRNQty: 15 0RF nystatin 100,000 unit/gram Powder 1 applic topical BID Qty: 30 0RF sennosides [Senokot] 8.6 mg Tablet 8.6 mg PO DAILY Qty: 30 0RF Continued (DME) [facility] See Rx Instructions .ROUTE .MEDSUPPLY Qty: 1 Rx Instructions: As directed acetaminophen 650 mg tablet extended release 1,300 mg PO Q12H omeprazole 40 mg capsule,delayed release(DR/EC) 40 mg PO BID furosemide 40 mg tablet 40 mg PO BID spironolactone 25 mg tablet 25 mg PO DAILY simvastatin 40 mg tablet 40 mg PO DAILY Patient Comments: pt reports every other day not every day silodosin 8 mg capsule 8 mg PO DAILY Rx Instructions: must administer with a meal/food carbidopa-levodopa [Sinemet] 25-100 mg tablet 2 tab PO HS polyethylene glycol 3350 17 gram/dose powder 17 g PO DAILY Eliquis 5 mg tablet 5 mg PO BID finasteride 5 mg tablet 5 mg PO HS folic acid 1 mg tablet 1 mg PO DAILY losartan 50 mg tablet 50 mg PO DAILY cyanocobalamin (vitamin B-12) [Vitamin B-12] 1,000 mcg tablet 1,000 mcg PO DAILY propranolol 10 mg tablet 10 mg PO BID melatonin 3 mg tablet 3 mg PO HS hydroxyzine HCl 50 mg tablet 50 mg PO QHS tramadol 25 mg tablet 25 mg PO Q6H PRN cholecalciferol (vitamin D3) 25 mcg (1,000 unit) tablet 25 mcg PO DAILY Discharge Instructions Additional Instructions: Take furosemide 40 mg once daily. Recommend BMP in 1 week (ordered). Referrals: Riccardo Duque [Primary Care Provider] - (Post hospitalization appt ) Activity:: Activity as Tolerated Equipment/Supplies:: No Equipment Needed Diet:: As Tolerated Discharge Orders Other Ambulatory Orders: Basic Metabolic Panel (Routine) Timeframe: 1 Week Facility: [facility] - Location: Laboratory Outpatient - [facility] Ordered By: Zuleyka Worrell DS: Summary Time Spent with Patient providing and/or coordinating discharge services: Greater than 30 minutes Status at Discharge Functional status at discharge: uses cane/walker Overall status at discharge: patient is progressing back to baseline Mental Status: mental status grossly normal Speech and Movement: speech and movement normal Mood: congruent mood Affect: normal affect Quality:SDOH Health Related Social Needs: Health related social needs risk of homeless Exam Narrative Exam Narrative: Well-appearing male younger than stated age no acute distress head is atraumatic normocephalic eyes nonicteric noninjected EOMs intact facial features symmetrical oral mucosas moist neurologic he is awake alert oriented no focal deficit. Cardiovascular regular rate and rhythm his respirations even unlabored abdomen soft round nontender positive bowel sounds moves all extremities with no peripheral edema. Skin with no rashes or lesions Psych Mental Status: mental status grossly normal Speech and Movement: speech and movement normal Mood: congruent mood Affect: normal affect DS: Data Vitals/I&O Vitals and I&O: Vital Signs Temperature 36.0 C L 10/12/23 07:29 Temperature Source Temporal Artery Scan 10/12/23 07:29 Pulse 66 10/12/23 07:29 Pulse Rhythm Irregular 10/12/23 08:33 Respiratory Rate 19 10/12/23 07:29 Respiratory Effort Normal 10/12/23 08:33 Respiratory Depth Normal 10/12/23 08:33 Respiratory Pattern Normal 10/12/23 08:33 Blood Pressure 130/77 10/12/23 07:29 Pulse Oximetry 95 10/12/23 07:29 Oxygen Delivery Method Room Air 10/12/23 07:29 Oxygen Flow Rate 0 10/12/23 07:29 Pain Level 0 10/12/23 08:20 Comment will inform RN of TEMP 10/07/23 07:54 Intake & Output 10/11/23 10/12/23 10/12/23 23:59 11:59 23:59 Intake Total 340 / 590 700 / 700 Output Total 50 / 50 Balance 290 / 540 700 / 700 Intake: Oral 340 / 580 700 / 700 Output: Stool 50 / 50 Other: Urine Color Yellow Yellow Urine Appearance Clear Clear Comment x1 unknown void. x1 void large unknown Stool Size Smear Moderate Stool Characteristics Formed Soft Brown Formed Voiding Methods Toilet PFSH All Active Problems (Updated 09/30/23 @ 00:05 by ARLYN MONTOYA) Painful total knee replacement, right (Acute) Periprosthetic fracture of shaft of femur (Acute) Ambulatory dysfunction (Acute) Acute pain of right lower extremity (Acute) Inability to walk (Acute) Cervical myelopathy (Acute) Right leg weakness (Acute) DNR (do not resuscitate) (Acute) Plantar wart, right foot (Acute) Neuropathy, idiopathic (Acute) Localized edema (Acute) bi-lateral ankle edema Venous insufficiency of both lower extremities (Acute) with chronic stasis changes Nail dystrophy (Acute) Imbalance (Acute) Lumbar stenosis (Acute) Irregular heart beat (Acute) Medical History Hyponatremia Recurrent falls History of GI diverticular bleed Afib Abdominal pain, suprapubic Dizziness 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 f/u with Dr. Roger @ [facility] [place] and is aware he is having cataract Obesity History of neck pain Stasis dermatitis Seborrheic keratosis Adenomatous colon polyp Pain in left shoulder Knee pain, left Actinic keratosis Insomnia BPH (benign prostatic hyperplasia) History of excessive sweating HTN (hypertension) Achalasia GERD (gastroesophageal reflux disease) Depression ASCVD (arteriosclerotic cardiovascular disease) angioplasty 1993 Surgical History History of total right knee replacement (TKR) S/P PTCA (percutaneous transluminal coronary angioplasty) History of cervical discectomy H/O laminectomy S/P carpal tunnel release S/P tendon repair EGD - [facility] (12/29/16) Colonoscopy - [facility] (12/29/16) Family History Father Prostate cancer Hypertension Stroke Mother Hypertension Maternal Grandmother Stomach cancer Social History Smoking/Tobacco Use Status: Former Tobacco Use Quit Date: 02/21/85 Smoking risk assessment performed?: Yes Alcohol Intake: current Alcohol Intake frequency: a few times a month Alcohol type: beer Details: <1 DRINK PER DAY OF 06-05-20; Drug use: Never Substance use type: does not use Household members: none Housing: house Number of Children: 2 current occupation: Retired What is your relationship status?: Panel score (0-1 are the most socially isolated patients): 0 Do you feel safe at home: Yes Additional Social history: lives alone Time Spent with Patient Time Spent with Patient: <45 minutes Time was spent: preparing to see the patient(eg.review tests), ordering medications,tests, procedures, referring, communicating with other health care connector, indepentently interpreting results, counseling the patient and care coordination
--- NOTE | 2023-10-12 12:40 | PDOC.HHF2F ---
Home Health Referral Home Health Orders Clinical synopsis of why skilled professionals are needed: 83-year-old male patient with a past medical history of right lower extremity femoral fracture and knee replacement at [facility] presented on 09/25/2023 to the ED at [facility] for evaluation of right leg pain. Acute onset of right leg pain following physical therapy exercises and range of motion activities. Patient described hearing a ?pop? and experiencing severe pain behind the right knee, radiating up to the lower back. Denied falls and reported an inability to walk. Past Medical History: Right lower extremity femoral fracture Total knee replacement at [facility] Atrial fibrillation - on Apixaban Congestive heart failure - on furosemide Parkinson's - on Carbidopa-Levodopa Hypertension - on Losartin, Amlodipine, Spironolactone Clinical Findings: ED Evaluation: X-ray indicated possible lucency and a small effusion in the right knee. CT Scan: No evidence of acute fracture or significant changes in the status of the right knee or femoral shaft. Orthopedic Consultation: No major significant differences compared to previous images. No acute issues identified requiring urgent intervention. Hospital Course: Initial Management: Celebrex and Ultram were administered for pain control. A knee immobilizer was initially recommended for stabilization and later discontinued. Further Consultation: Dr. Lee discussed the case with the trauma surgeon at [facility]. The possibility of acute loosening of the right knee was considered but deemed unlikely. It was suggested that symptoms might be due to soft tissue inflammation from IT band and popliteus tendon impingement, rather than structural damage. Physical Therapy: Home health physical therapy has been requested Plan: Medication: Continue with a course of steroids to manage inflammation. Follow-Up: Regular reassessment by orthopedic and rehabilitation teams. Rehabilitation: Transition to home health PT for further evaluation and physical therapy to improve mobility and manage pain. Patient Status: DNR/DNI (Do Not Resuscitate/Do Not Intubate) Recommendations: Continue physical therapy Reassess in a few weeks if no significant improvement is observed. Discharge Instructions: Monitor for any new or worsening symptoms. Adhere to the prescribed medication regimen. Engage in physical therapy as directed by the PT team. Disposition: Return to [facility] with home health physical therapy. Patient is stable. Physical Therapist: Check all that apply Increase strength & endurance for safe mobility at home: Ordered To design/establish home maintenance program: Ordered Fall reduction therapy program for patient with history of frequent falls: Ordered Home safety evaluation and teaching/gait training including stair management (if applicable): Ordered Photoengraving Machine Operator/Tender: Assist with community resources: Ordered Assist with senior care care planning: Ordered Home Bound Status Requires the aid of supportive device (check all that apply): Cane and Walker Describe why leaving home would require a considerable and taxing effort: Requires frequent rest periods, Confusion and Safety Concerns: describe (Concern for falls) Encounter Date and Reason: I certify that a FTF encounter for this patient was performed on October 12, 2023 and that such encounter was related to the primary reason the patient requires home health services. The encounter was conducted in the following manner: By me as the certifying physician, SEED YEAST OPERATOR, PA or By an inpatient physician, SEED YEAST OPERATOR or PA during an inpatient stay who communicated findings to me, Certification And Authentication I certify that I composed the above information based on my clinical judgment relating to this patient's medical condition and, if applicable, clinical findings communicated to me by the NPP or inpatient physician who performed the FTF encounter. Name of Provider that will be monitoring home health services: Riccardo Duque
== END 2023-10-12 13:55 | disposition home or self-care (01) | DRG 559 ==
PROVIDERS: Family Medicine; Admitting Provider Nurse Practitioner Acute Care; PCP Family Medicine; Visit Provider Nurse Practitioner Acute Care
DX: S72.391D Other fracture of shaft of right femur, subsequent encounter for closed fracture with routine healing (principal); U07.1 COVID-19; E87.1 Hypo-osmolality and hyponatremia; T84.84XD Pain due to internal orthopedic prosthetic devices, implants and grafts, subsequent encounter; M25.561 Pain in right knee; R26.2 Difficulty in walking, not elsewhere classified; M25.461 Effusion, right knee; Z96.651 Presence of right artificial knee joint; Z79.01 Long term (current) use of anticoagulants; I48.91 Unspecified atrial fibrillation; I50.9 Heart failure, unspecified; Z79.899 Other long term (current) drug therapy; Z66 Do not resuscitate; G60.9 Hereditary and idiopathic neuropathy, unspecified; R60.0 Localized edema; I87.2 Venous insufficiency (chronic) (peripheral); M48.061 Spinal stenosis, lumbar region without neurogenic claudication; F10.11 Alcohol abuse, in remission; I35.0 Nonrheumatic aortic (valve) stenosis; E78.5 Hyperlipidemia, unspecified; I25.10 Atherosclerotic heart disease of native coronary artery without angina pectoris; E66.9 Obesity, unspecified; G47.00 Insomnia, unspecified; N40.0 Benign prostatic hyperplasia without lower urinary tract symptoms; K21.9 Gastro-esophageal reflux disease without esophagitis; F32.A Depression, unspecified; I11.0 Hypertensive heart disease with heart failure; Z68.33 Body mass index [BMI] 33.0-33.9, adult
CPT/HCPCS: 00123; 36415; 80048; 85027; 87637; 97110; 97112; 97161; 97162; 97530; 99306; 99316; 85025; 99310; J0248; J3490; J7512

== ENCOUNTER 2023-10-23 21:46 | Outpatient (REF) | payer MEDICARE, BC, SELFPAY ==
[2023-10-23 17:02] LABS: Anion Gap 8.8 mmol/L (3-11); BUN 32 mg/dL (7-18); CO2 28.2 mmol/L (21.0-32.0); CREATININE 1.7 mg/dL (0.70-1.30); Calcium 8.7 mg/dL (8.5-10.1); Chloride 100 mmol/L (98-107); Estimated GFR 39.26 (mL/min/1.73m2); Glucose 102 mg/dL (74-106); Potassium 4.7 mmol/L (3.5-5.1); Sodium 137 mmol/L (136-145)
== END 2023-10-23 21:47 | disposition home or self-care (01) ==
LOC: LBN 21:46
PROVIDERS: PCP Family Medicine; Visit Provider Nurse Practitioner Family
DX: E87.1 Hypo-osmolality and hyponatremia (principal)
CPT/HCPCS: 80048

== ENCOUNTER 2023-11-01 18:19 | Outpatient (REF) | payer MEDICARE, BC, SELFPAY ==
[2023-11-01 09:17] LABS: Abs Immature Grans 0.01 10^3/uL (0.0-0.06); Absolute Basophil Count 0.03 10^3/uL (0.0-0.2); Absolute Eosinophil Count 0.08 10^3/uL (0.0-0.7); Absolute Lymphocyte Count 1.31 10^3/uL (1.2-3.4); Absolute Monocyte Count 0.56 10^3/uL (0.1-0.8); Absolute Neutrophil Count 2.92 10^3/uL (1.2-6.7); Basophils % 0.6 %; Eosinophils % 1.6 %; HCT 41.3 % (40.0-50.0); HGB 13.9 g/dL (13.5-17.5); Immature Grans % 0.2 %; Lymphocytes % 26.7 %; MCH 30.7 pg (27.0-33.0); MCHC 33.7 % (32.0-36.0); MCV 91 fL (80-95); MPV 10.2 fL (8.0-11.0); Monocytes % 11.4 %; Neutrophils % 59.5 %; Platelet Count 158 10^3/uL (130-400); RBC 4.53 10^6/uL (4.36-5.78); RDW 14.3 % (11.8-14.1); WBC 4.91 10^3/uL (4.4-10.8)
[2023-11-01 09:28] LABS: ALT 11 U/L (16-63); AST 13 U/L (15-37); Albumin 3.6 g/dL (3.4-5.0); Alkaline Phosphatase 101 U/L (46-116); Anion Gap 8.4 mmol/L (3-11); BUN 21 mg/dL (7-18); Bilirubin, Total 0.67 mg/dL (0.2-1.0); CO2 28.6 mmol/L (21.0-32.0); CREATININE 1.1 mg/dL (0.70-1.30); Calcium 8.9 mg/dL (8.5-10.1); Calculated LDL 57 mg/dL (<100); Chloride 97 mmol/L (98-107); Cholesterol 124 mg/dL (<200); Estimated GFR 66.19 (mL/min/1.73m2); Glucose 87 mg/dL (74-106); HDL Cholesterol 50 mg/dL (40-60); Potassium 4.4 mmol/L (3.5-5.1); Sodium 134 mmol/L (136-145); Total Protein 6.7 g/dL (6.4-8.2); Triglyceride 89 mg/dL (<150)
[2023-11-01 09:29] LABS: COMMENT (LAB VIEW ONLY) 39.93 mg/dL; Microalb ug/mg Crea 31.3 ug/mg Cr
[2023-11-01 09:50] LABS: NT-proBNP 1707 pg/mL (<300)
== END 2023-11-01 18:20 | disposition home or self-care (01) ==
LOC: LBN 18:19
PROVIDERS: PCP Family Medicine; Visit Provider Family Medicine
DX: I10 Essential (primary) hypertension (principal); I25.10 Atherosclerotic heart disease of native coronary artery without angina pectoris; R60.0 Localized edema
CPT/HCPCS: 80053; 80061; 82043; 82570; 83880; 85025